=== PATIENT | female | born 1940 | race African-American/Black ===

== ENCOUNTER 2016-10-26 16:36 | Emergency (ER) | payer MEDICARE ==
[~2016-10-26 16:36] MED LIST: DONE10TA7 PO; DULO30CA2 PO; GABA-585 PO; LOVA40TA2 PO; MIRT15TA3 PO; MULT-208 PO; TRIA1CAP3 PO
== END 2016-10-26 17:39 | disposition left against medical advice (07) ==
LOC: ER 16:36
DX: T45.0X1A Poisoning by antiallergic and antiemetic drugs, accidental (unintentional), initial encounter (principal); Y92.89 Other specified places as the place of occurrence of the external cause; Z53.21 Procedure and treatment not carried out due to patient leaving prior to being seen by health care provider

== ENCOUNTER 2018-08-02 07:59 | Inpatient (IN) | payer MEDICARE, OTHER ==
[~2018-08-02] VITALS: Ht 165.1 cm; Wt 53.6 kg
[2018-08-02] VITALS (26 sets, daily range): BP systolic 82–127; BP diastolic 31–88
[2018-08-02 08:28] LABS: BASO % 1 % (0-3); EOS # 0.1 x10^3/uL (0.0-0.7); EOS % 2 % (0-3); HEMATOCRIT 29.4 % (36.0-47.0); HEMOGLOBIN 9.4 g/dL (12.0-15.5); LYMPH # 1.4 x10^3/uL (1.0-4.8); LYMPH % 26 % (24-48); MEAN CORPUSCULAR HEMOGLOBIN 23 pg (25-35); MEAN CORPUSCULAR HGB CONC 32 g/dL (31-37); MEAN CORPUSCULAR VOLUME 73 fL (79-100); MONO # 0.3 x10^3/uL (0.0-1.1); MONO % 5 % (0-9); NEUT # 3.5 x10^3uL (1.8-7.7); NEUT % 66 % (31-73); PLATELET COUNT 196 x10^3/uL (140-400); RED BLOOD COUNT 4.04 x10^6/uL (3.50-5.40); RED CELL DISTRIBUTION WIDTH 16.3 % (11.5-14.5); WHITE BLOOD COUNT 5.3 x10^3/uL (4.0-11.0)
--- NOTE | 2018-08-02 08:31 | PHYS DOC ---
Past Medical History Past Medical History: Other Additional Past Medical Histor: unknown Adult General Chief Complaint Chief Complaint: RECTAL BLEED HPI HPI Patient is a 77 year old female who presents with GI bleeding. The patient has a history of dementia and is nonverbal on arrival. The family arrived shortly after the patient. They state that she does have a prior history of diverticulitis. They noticed some GI bleeding that started last evening in the patient's brief. She was sent to the ER this morning because she seemed to be a little weaker compared to baseline when they assisted her with ambulation to the restroom. They also noticed ongoing blood from her rectum. There is no additional history available directly from the patient. History is gathered from the family. Review of Systems Review of Systems Constitutional: Reported to be at baseline health by the family Eyes: no changes reported HENT: no changes reported Respiratory: no cough Cardiovascular: No additional information not addressed in HPI GI: nausea or vomiting : no change in urinary patterns Integument: no new rashes Neurologic: no neuro changes reported Endocrine: no changes ROS gathered from the patient's family with whom she lives All other systems were reviewed and found to be within normal limits, except as documented in this note. Allergies Allergies Allergies Coded Allergies Type Severity Reaction Last Updated Verified No Known Drug Allergies 09/08/14 No Physical Exam Physical Exam Constitutional: Frail, elderly female in no acute distress, nonverbal HENT: Normocephalic, atraumatic, MM's moist Eyes: PERRLA, EOMI Neck: Normal range of motion, no tenderness, supple, no JVD Cardiovascular:Heart rate regular rhythm, no murmur Lungs & Thorax: Bilateral breath sounds clear to auscultation Abdomen: Bowel sounds normal, soft, mild subjective tenderness to palpation but no guarding or rebound, no distention Skin: Warm, dry Back: No skin breakdown Extremities: No edema Neurologic: Alert, nonverbal, moving all extremities, protecting airway, eyes open spontaneously, answers some questions, Current Patient Data Vital Signs Vital Signs Date Time Temp Pulse Resp B/P (MAP) Pulse Ox O2 Delivery O2 Flow Rate FiO2 08/02/18 08:49 60 13 104/64 (77) 97 Room Air 08/02/18 08:10 97.6 97.6 Lab Values Laboratory Tests Test 08/02/18 08:15 White Blood Count 5.3 x10^3/uL (4.0-11.0) Red Blood Count 4.04 x10^6/uL (3.50-5.40) Hemoglobin 9.4 g/dL (12.0-15.5) L Hematocrit 29.4 % (36.0-47.0) L Mean Corpuscular Volume 73 fL (79-100) L Mean Corpuscular Hemoglobin 23 pg (25-35) L Mean Corpuscular Hemoglobin Concent 32 g/dL (31-37) Red Cell Distribution Width 16.3 % (11.5-14.5) H Platelet Count 196 x10^3/uL (140-400) Neutrophils (%) (Auto) 66 % (31-73) Lymphocytes (%) (Auto) 26 % (24-48) Monocytes (%) (Auto) 5 % (0-9) Eosinophils (%) (Auto) 2 % (0-3) Basophils (%) (Auto) 1 % (0-3) Neutrophils # (Auto) 3.5 x10^3uL (1.8-7.7) Lymphocytes # (Auto) 1.4 x10^3/uL (1.0-4.8) Monocytes # (Auto) 0.3 x10^3/uL (0.0-1.1) Eosinophils # (Auto) 0.1 x10^3/uL (0.0-0.7) Basophils # (Auto) 0.0 x10^3/uL (0.0-0.2) Prothrombin Time 13.6 SEC (11.7-14.0) Prothrombin Time INR 1.1 (0.8-1.1) PTT 25 SEC (24-38) Sodium Level 146 mmol/L (136-145) H Potassium Level 3.9 mmol/L (3.5-5.1) Chloride Level 109 mmol/L (98-107) H Carbon Dioxide Level 28 mmol/L (21-32) Anion Gap 9 (6-14) Blood Urea Nitrogen 23 mg/dL (7-20) H Creatinine 1.0 mg/dL (0.6-1.0) Estimated GFR (Cockcroft-Gault) 65.2 Glucose Level 138 mg/dL (70-99) H Lactic Acid Level 1.2 mmol/L (0.4-2.0) Calcium Level 8.6 mg/dL (8.5-10.1) Total Bilirubin 0.4 mg/dL (0.2-1.0) Direct Bilirubin 0.1 mg/dL (0.0-0.2) Aspartate Amino Transferase (AST) 17 U/L (15-37) Alanine Aminotransferase (ALT) 17 U/L (14-59) Alkaline Phosphatase 46 U/L (46-116) Troponin I Quantitative < 0.017 ng/mL (0.000-0.055) Total Protein 5.9 g/dL (6.4-8.2) L Albumin 3.2 g/dL (3.4-5.0) L Lipase 40 U/L (73-393) L Laboratory Tests 08/02/18 08:15 Laboratory Tests 08/02/18 08:15 EKG EKG No STEMI Interpretation Time: 08:25 Radiology/Procedures Radiology/Procedures Findings: Evaluation of enteric structures may be limited by lack of oral contrast. Additionally, patient's left arm is on her upper abdomen, creating streak artifact. There is motion artifact. Liver, spleen, pancreas, gallbladder, and bilateral adrenal glands are unremarkable. Bilateral kidneys enhance symmetrically. Right kidney demonstrates subcentimeter low-attenuation lesion, not adequately characterized on this examination. No bowel obstruction is identified. Moderate to large amount of stool is present within the colon. Colonic diverticulosis is noted, but no convincing diverticulitis appreciated. The rectum is distended by formed stool; maximum diameter of the rectum is estimated at 9 cm. Degenerative changes are present in the spine. Impression: 1. Limitations of study as described above. 2. Rectum is significantly distended by formed stool. Consider fecal impaction and stercoral proctitis. 3. Moderate-large amount of colonic stool. 4. Colonic diverticulosis without convincing evidence of diverticulitis. Course & Med Decision Making Course & Med Decision Making Pertinent Labs and Imaging studies reviewed. (See chart for details) Patient was evaluated in the emergency department for some GI bleeding. Overall , her abdominal exam was benign but she did have some subjective tenderness. CT scan of the abdomen pelvis was completed and the patient had no acute diverticulitis. On arrival to the ER, she did have a large amount of dark maroon blood from her rectum which was in her brief. Her hemoglobin was over 9. Her vital signs remained stable during the ER course she had systolic blood pressures in the low 100s. IV fluids were started at a very low rate mostly to have on hand if needed for bolus. Patient's family remained at the bedside during her ER course. I spoke to Dr. Connell who is primarily admitting. I also notified GI service salesperson pianos and organs that the patient was being admitted. Dragon Disclaimer Dragon Disclaimer This electronic medical record was generated, in whole or in part, using a voice recognition dictation system. Departure Departure Disposition: 09 ADMITTED INPATIENT Condition: STABLE Referrals: GLORIA MURRELL (PCP) ADYLIN FABIAN DO Aug 02, 2018 08:31
[2018-08-02 08:37] LABS: CALCIUM 8.6 mg/dL (8.5-10.1); GFR 65.2; POTASSIUM 3.9 mmol/L (3.5-5.1); PROTHROMBIN TIME PATIENT 13.6 SEC (11.7-14.0)
[2018-08-02 08:43] LABS: ALBUMIN 3.2 g/dL (3.4-5.0); DIRECT BILIRUBIN 0.1 mg/dL (0.0-0.2); TOTAL BILIRUBIN 0.4 mg/dL (0.2-1.0); TOTAL PROTEIN 5.9 g/dL (6.4-8.2)
--- NOTE | 2018-08-02 08:43 | EKG ---
[facility] [address] [place] [address] Test Date: 2018-08-02 Test Time: 08:21:39 Pat Name: BEAR SANCHEZ Department: Room: Gender: F Right Of Way Manager: : 1940 Requested By: DAYLIN FABIAN Order Number: [id number] Reading MD: Adebayo Brown MD Measurements Intervals [place] Rate: 59 P: 39 AK: 134 QRS: -84 QRSD: 112 T: -24 QT: 454 QTc: 454 Interpretive Statements SINUS RHYTHM ABNORMAL LEFT AXIS DEVIATION NON-SPECIFIC ST/T CHANGES Electronically Signed On 08-02-2018 11:16:57 ETL ANALYST by Adebayo Brown MD
[2018-08-02] MEDS ORDERED: DEXTROSE 50% 25 GM / 50ML DISP.SYRIN. IV ONE (09:00)
[2018-08-02] MEDS ORDERED: INSULIN REGULAR 100 UNIT/ML 3ML VIAL. IV ONE (09:00)
[2018-08-02] MEDS ORDERED: CALCIUM GLUCONATE 1,000 MG/10 ML VIAL. IVP ONE (09:00)
[2018-08-02] MEDS ORDERED: CONTRAST GIVEN. MC PRN (09:15)
[2018-08-02] MEDS ORDERED: IOHEXOL 300 MG/ML 100ML VIAL. IV ONE (09:30)
--- NOTE | 2018-08-02 09:38 | RAD ---
CT Abdomen and Pelvis With Intravenous Contrast: History: Abdominal pain, GI bleeding, diverticulitis. Comparison: None. Technique: After administration of intravenous contrast, 75 mL Omnipaque-300, CT of the abdomen and pelvis was performed. Exposure: One or more of the following individualized dose reduction techniques were utilized for this examination: 1. Automated exposure control 2. Adjustment of the mA and/or kV according to patient size 3. Use of iterative reconstruction technique Findings: Evaluation of enteric structures may be limited by lack of oral contrast. Additionally, patient's left arm is on her upper abdomen, creating streak artifact. There is motion artifact. Liver, spleen, pancreas, gallbladder, and bilateral adrenal glands are unremarkable. Bilateral kidneys enhance symmetrically. Right kidney demonstrates subcentimeter low-attenuation lesion, not adequately characterized on this examination. No bowel obstruction is identified. Moderate to large amount of stool is present within the colon. Colonic diverticulosis is noted, but no convincing diverticulitis appreciated. The rectum is distended by formed stool; maximum diameter of the rectum is estimated at 9 cm. Degenerative changes are present in the spine. Impression: 1. Limitations of study as described above. 2. Rectum is significantly distended by formed stool. Consider fecal impaction and stercoral proctitis. 3. Moderate-large amount of colonic stool. 4. Colonic diverticulosis without convincing evidence of diverticulitis. Electronically signed by: Javier Holliday MD (08/02/2018 9:34 AM) [place] [id number]
[2018-08-02] MEDS ORDERED: ONDANSETRON PF 4 MG/2 ML VIAL. IV PRN (10:00)
[2018-08-02] MEDS ORDERED: IV NORMAL SALINE 1000ML BAG 1,000 ML IV SCH (10:00)
--- NOTE | 2018-08-02 10:45 | PDOC2 ---
GI CONSULT Reason For Consult: GI bleeding HPI: HPI: 77 y/o female w/ dementia admitted through ER w/ rectal bleeding, called by ER physician (Dr. Forte). History from daughter [place] - she cares for pt at home w/ her sister. Lifelong h/o constipation, no regular treatment, unclear timing of last "good" stool. Recently she c/o abd pain so they tried Mag Citrate. Might have had a little red blood in brief on Monday, no bleeding Monday. This morning sat up in bed, fell to the side and slipped down to the floor (with daughter present to help) - they think she might have fainted. Then had significant blood in brief w/ mushy brown stool. ER reports dark red blood in brief w/ clots - saturated when she arrived, changed twice since, bleeding seems to be slowing now. H/o GERD (untreated) but recently her "breath has smelled like poop." Some decreased appetite and early satiety, though ate "a lot" yesterday. No issues with swallowing. No n/v. No melena or weight loss. Similar episode @ about 7 years ago w/ bleeding - "diverticulitis," treated w/ antibiotics. Previous EGD at some point, no h/o ulcers. Past colonoscopy @ , timing unclear, no significant findings recalled. No GB, liver, or pancreas history. On ASA. Vitals stable. Hgb 9.4, MCV 73, BUN 23. CT w/ possible fecal impaction or stercoral proctitis, moderate-large colonic stool, and diverticulosis. PMH: PMH: per chart - ?HTN, arthritis, diverticulosis, Alzheimer dementia, depression, neuropathy, bilateral knee replacement, back surgery, hysterectomy ROS: She denies pain. Other obtained per daughter - refer to HPI. Vitals: Vitals: Vital Signs Date Time Temp Pulse Resp B/P (MAP) Pulse Ox O2 Delivery O2 Flow Rate FiO2 08/02/18 09:40 56 14 151/60 (90) 99 Room Air 08/02/18 08:10 97.6 97.6 Labs: Labs: Laboratory Tests Test 08/02/18 08:15 White Blood Count 5.3 x10^3/uL (4.0-11.0) Red Blood Count 4.04 x10^6/uL (3.50-5.40) Hemoglobin 9.4 g/dL (12.0-15.5) Hematocrit 29.4 % (36.0-47.0) Mean Corpuscular Volume 73 fL (79-100) Mean Corpuscular Hemoglobin 23 pg (25-35) Mean Corpuscular Hemoglobin Concent 32 g/dL (31-37) Red Cell Distribution Width 16.3 % (11.5-14.5) Platelet Count 196 x10^3/uL (140-400) Neutrophils (%) (Auto) 66 % (31-73) Lymphocytes (%) (Auto) 26 % (24-48) Monocytes (%) (Auto) 5 % (0-9) Eosinophils (%) (Auto) 2 % (0-3) Basophils (%) (Auto) 1 % (0-3) Neutrophils # (Auto) 3.5 x10^3uL (1.8-7.7) Lymphocytes # (Auto) 1.4 x10^3/uL (1.0-4.8) Monocytes # (Auto) 0.3 x10^3/uL (0.0-1.1) Eosinophils # (Auto) 0.1 x10^3/uL (0.0-0.7) Basophils # (Auto) 0.0 x10^3/uL (0.0-0.2) Prothrombin Time 13.6 SEC (11.7-14.0) Prothromb Time International Ratio 1.1 (0.8-1.1) Activated Partial Thromboplast Time 25 SEC (24-38) Sodium Level 146 mmol/L (136-145) Potassium Level 3.9 mmol/L (3.5-5.1) Chloride Level 109 mmol/L (98-107) Carbon Dioxide Level 28 mmol/L (21-32) Anion Gap 9 (6-14) Blood Urea Nitrogen 23 mg/dL (7-20) Creatinine 1.0 mg/dL (0.6-1.0) Estimated GFR (Cockcroft-Gault) 65.2 Glucose Level 138 mg/dL (70-99) Lactic Acid Level 1.2 mmol/L (0.4-2.0) Calcium Level 8.6 mg/dL (8.5-10.1) Total Bilirubin 0.4 mg/dL (0.2-1.0) Direct Bilirubin 0.1 mg/dL (0.0-0.2) Aspartate Amino Transf (AST/SGOT) 17 U/L (15-37) Alanine Aminotransferase (ALT/SGPT) 17 U/L (14-59) Alkaline Phosphatase 46 U/L (46-116) Troponin I Quantitative < 0.017 ng/mL (0.000-0.055) Total Protein 5.9 g/dL (6.4-8.2) Albumin 3.2 g/dL (3.4-5.0) Lipase 40 U/L (73-393) Allergies: Coded Allergies: No Known Drug Allergies (Unverified , 09/08/14) Medications: Current Medications Medications (Trade) Dose Ordered Sig/Jaden Route PRN Reason Start Time Stop Time Status Last Admin Dose Admin Iohexol (Omnipaque 300 Mg/ml) 75 ml 1X ONCE IV 08/02/18 09:30 08/02/18 09:31 DC 08/02/18 09:08 Sodium Chloride 1,000 ml @ 45 mls/hr [id number] IV 08/02/18 10:00 08/03/18 09:59 08/02/18 10:36 Imaging: Imaging: CT A/P Evaluation of enteric structures may be limited by lack of oral contrast. Additionally, patient's left arm is on her upper abdomen, creating streak artifact. There is motion artifact. Liver, spleen, pancreas, gallbladder, and bilateral adrenal glands are unremarkable. Bilateral kidneys enhance symmetrically. Right kidney demonstrates subcentimeter low-attenuation lesion, not adequately characterized on this examination. No bowel obstruction is identified. Moderate to large amount of stool is present within the colon. Colonic diverticulosis is noted, but no convincing diverticulitis appreciated. The rectum is distended by formed stool; maximum diameter of the rectum is estimated at 9 cm. Degenerative changes are present in the spine. Impression: 1. Limitations of study as described above. 2. Rectum is significantly distended by formed stool. Consider fecal impaction and stercoral proctitis. 3. Moderate-large amount of colonic stool. 4. Colonic diverticulosis without convincing evidence of diverticulitis. PE: GEN: NAD HEENT: Atraumatic, PERRL LUNGS: CTAB anteriorly HEART: RRR ABD: NABS, S/ND/NT EXTREMITY: No edema SKIN: No rashes, no jaundice NEURO/PSYCH: confused A/P: A/P: Hematochezia, abd pain, ?syncope Microcytic anemia -on ASA Abnormal CT - distended rectum w/ possible fecal impaction or stercoral proctitis, moderate-large colonic stool H/o GERD and constipation -past 'scopes @ [facility] -no routine treatment Diverticulosis, ?h/o diverticulitis vs past diverticular bleed Dementia -- Reviewed w/ Propeck - bleeding scan and Miralax. Will also add PPI. Hemogram this afternoon. MEL ORDONEZ Aug 02, 2018 10:45
[2018-08-02] MEDS ORDERED: POLYETHYLENE GLYCOL 3350 238 GM POWDER PO ONE ×2 (12:30→19:00)
[2018-08-02] MEDS ORDERED: POLYETHYLENE GLYCOL 3350 17 GM PACKET. PO ONE (12:30)
[2018-08-02] MEDS ORDERED: IV NORMAL SALINE 250ML 250 ML IV ONE (13:00)
[2018-08-02] MEDS ORDERED: HEPARIN for NUC MED 500 UNIT/5 ML DISP.SYRIN. IV ONE (13:05)
[2018-08-02] MEDS ORDERED: ASPI-612 PO (13:06)
[2018-08-02] MEDS ORDERED: MIRT15TA3 PO (13:06)
[2018-08-02] MEDS ORDERED: SENN1TAB21 PO (13:06)
[2018-08-02] MEDS ORDERED: MEMA10TA PO (13:10)
[2018-08-02 13:15] LABS: HEMATOCRIT 24.6 % (36.0-47.0); HEMOGLOBIN 7.8 g/dL (12.0-15.5); RED BLOOD COUNT 3.37 x10^6/uL (3.50-5.40); RED CELL DISTRIBUTION WIDTH 16.6 % (11.5-14.5); WHITE BLOOD COUNT 5.8 x10^3/uL (4.0-11.0)
[2018-08-02] MEDS ORDERED: HEPARIN PF 500 UNIT/5 ML DISP.SYRIN. IV ONE (13:30)
--- NOTE | 2018-08-02 14:46 | RAD ---
History: GI bleed Technique: After intravenous administration of 32 mCi technetium 99m UltraTag labeled red blood cells, imaging was performed of the abdomen in the anterior projection for one hour. Findings: The images demonstrate appropriate labeling of the blood pool. No gastrointestinal hemorrhage is identified. There is progressive accumulation of a mild amount of activity within the lower pelvis, favored represent free pertechnetate within the urinary bladder. Impression: No evidence of acute GI bleeding. Electronically signed by: Javier Holliday MD (08/02/2018 2:43 PM) [place] [id number]
[2018-08-02] MEDS: IV NORMAL SALINE 1000ML BAG 1,000 ML IV SCH (14:54)
[2018-08-02] MEDS: PANTOPRAZOLE IV PUSH 40 MG VIAL. IVP SCH (14:54)
--- NOTE | 2018-08-02 18:45 | PDOC ---
Provider Note Provider Note Pt seen in ICU. critical care 38 mts spent in coordinating care. spoke with family members at bedside MARIA DOLORES HILARIO MD Aug 02, 2018 18:45
--- NOTE | 2018-08-02 20:02 | HP ---
ADMIT DATE: 08/02/2018 LOCATION: ICU 103. REASON FOR ADMISSION TO THE HOSPITAL: Rectal bleed. HISTORY OF PRESENT ILLNESS: The patient is a 77-year-old black female patient of Dr. Green. The patient goes to adult daycare and she has history of dementia and she lives with her daughters. She has history of constipation and recently she was complaining of abdominal pain. She got some mag citrate and she also had tried to go to the bathroom this morning. There was some blood in the Brief and she also had little bit of syncopal episode while she was trying to go to the toilet. The patient was brought to the hospital, had blood in the stool. The patient was admitted to medical floor. She developed hypotension as well as another episode of syncopal episode, was transferred to ICU. GI was consulted and she is being given a blood transfusion. PAST MEDICAL HISTORY: Dementia, diverticulosis, depression. PAST SURGICAL HISTORY: Bilateral knee replacements, back surgery and hysterectomy. ALLERGIES: No known drug allergies. MEDICATIONS AT HOME: Aspirin 81 mg daily, Cymbalta 30 mg daily, gabapentin 100 mg at bedtime, senna 1 daily, Namenda 10 mg twice a day, mirtazapine 50 mg daily. FAMILY HISTORY: Unremarkable. SOCIAL HISTORY: Lives at home with her daughter. She said she ambulates by herself without any walker or a cane. REVIEW OF SYSTEMS: The patient smiles, does not say much at this point, daughter at bedside. PHYSICAL EXAMINATION: GENERAL: An elderly female, looks older than her stated age of 77, lying in bed, not in any distress. VITAL SIGNS: Shows a temperature 98, pulse 66, respirations 16, blood pressure 90/60, 95% on room air. HEENT: Head is atraumatic. Pupils are equal. Oral cavity: No congestion. NECK: Supple. Thyroid not enlarged. JVD not elevated. CHEST: Symmetrical. CARDIOVASCULAR: S1, S2. LUNGS: Clear to auscultation. No wheezing. ABDOMEN: Soft, no masses palpable. EXTERNAL GENITALIA: Carrion was placed in the Emergency Room. RECTAL: Deferred. EXTREMITIES: Scars of bilateral knee replacements and no edema. Moving upper extremities. Lower extremities, she is spontaneously moving by herself. LABORATORY DATA: Shows a white count of 5, hemoglobin 9, platelets 196. INR 1.1. Electrolytes: Sodium 146, potassium 3.9, chloride 109, bicarbonate 28, BUN 26, creatinine 1.0, glucose 138. Lactic acid 1.2. LFTs were normal. Had a CT of abdomen and pelvis, which shows rectum is distended with stool, possible proctitis, colon diverticulosis. The patient had a GI bleeding scan, no evidence of active GI bleed. FINAL IMPRESSION: 1. Lower gastrointestinal bleed. 2. Dementia. 3. Anemia. 4. Neuropathy. 5. General debility. 6. History of previous surgeries including knee replacements. 7. The patient is on aspirin. 8. Dementia Alzheimer. PLAN: At this time was to hold aspirin. Medications n.p.o., IV fluids. The patient also had episode of hypotension, given fluid challenge 1 liter, was moved to ICU and GI is consulted. Monitor hemoglobin q. 6 hours. Transfuse 2 units and further recommendations to follow. I spoke with family members. Hold off on anticoagulation. SCDs for DVT prevention. Also, IV Protonix and drip. MARIA DOLORES HILARIO MD DR: DINO/michelle JOB#: [id number] / [id number] ARIELA
[2018-08-02] MEDS: ZOLPIDEM 5 MG TABLET. PO PRN (21:36)
[2018-08-03] VITALS (28 sets, daily range): BP systolic 83–140; BP diastolic 45–80
[2018-08-03 01:23] LABS: HEMATOCRIT 29.6 % (36.0-47.0); HEMOGLOBIN 10.2 g/dL (12.0-15.5); RED BLOOD COUNT 3.87 x10^6/uL (3.50-5.40); RED CELL DISTRIBUTION WIDTH 19.7 % (11.5-14.5); WHITE BLOOD COUNT 9.3 x10^3/uL (4.0-11.0)
[2018-08-03] MEDS: IV NORMAL SALINE 1000ML BAG 1,000 ML IV SCH ×2 (03:01→06:00)
[2018-08-03 05:22] LABS: BASO % 0 % (0-3); EOS % 0 % (0-3); HEMATOCRIT 28.9 % (36.0-47.0); HEMOGLOBIN 9.9 g/dL (12.0-15.5); LYMPH % 11 % (24-48); MEAN CORPUSCULAR HEMOGLOBIN 27 pg (25-35); MEAN CORPUSCULAR HGB CONC 34 g/dL (31-37); MEAN CORPUSCULAR VOLUME 78 fL (79-100); MONO # 0.4 x10^3/uL (0.0-1.1); MONO % 5 % (0-9); NEUT # 7.5 x10^3uL (1.8-7.7); NEUT % 84 % (31-73); PLATELET COUNT 144 x10^3/uL (140-400); RED BLOOD COUNT 3.72 x10^6/uL (3.50-5.40); RED CELL DISTRIBUTION WIDTH 19.1 % (11.5-14.5)
[2018-08-03 05:34] LABS: CALCIUM 7.9 mg/dL (8.5-10.1); CREATININE 0.9 mg/dL (0.6-1.0); GFR 73.7; POTASSIUM 3.5 mmol/L (3.5-5.1)
[2018-08-03] MEDS ORDERED: SODIUM PHOSPHATES 19/7GM 133 ML ENEMA. PR ONE ×2 (08:00)
[2018-08-03] MEDS: PANTOPRAZOLE IV PUSH 40 MG VIAL. IVP SCH (08:29)
--- NOTE | 2018-08-03 09:34 | PDOC ---
PROGRESS NOTES Subjective Subjective received 2 u prbc lat night Objective Objective Vital Signs Date Time Temp Pulse Resp B/P (MAP) Pulse Ox O2 Delivery O2 Flow Rate FiO2 08/03/18 06:00 61 12 126/73 (90) 100 Room Air 08/03/18 04:00 99.2 99.2 Intake and Output 08/03/18 07:00 Intake Total 3147 ml Output Total 630 ml Balance 2517 ml Intake IV Total 2597 ml Blood Product IV Normal Saline Flush 550 ml Output Urine Total 625 ml Stool Total 5 ml Physical Exam Abdomen: Normal bowel sounds, Soft Heart: Regular rate, Normal S1, Normal S2 Extremities: No clubbing, No cyanosis General: No acute distress HEENT: PERRLA Lungs: Clear to auscultation Neck: Supple Neuro: Other (confusion and agiataion) Skin: No rashes, No breakdown Diagnosis Problem List Problems Medical Problems: (1) GI bleed Status: Acute Assessment Assessment Problems Medical Problems: (1) GI bleed Status: Acute FINAL IMPRESSION: 1. Acute Lower gastrointestinal bleed. 2. Dementia. 3. Anemia due to GI bleed. 4. Neuropathy. 5. General debility. 6. History of previous surgeries including knee replacements. 7. The patient is on aspirin. 8. Dementia with agitation and confusion, encephalopathy PLAN: 2 u prbc last night ,hb 10 today colonoscopy today. surgical consult as back up. CTA to r/o active bleed. monitor Hb q 6 hrs iv hydration. keep in ICU spoke with family iv protonix At this time was to hold aspirin. Medications n.p.o., IV fluids. The patient also had episode of hypotension, given fluid challenge 1 liter, was moved to ICU and GI is consulted. Monitor hemoglobin q. 6 hours. Transfuse 2 units and further recommendations to follow. I spoke with family members. Hold off on anticoagulation. SCDs for DVT prevention. Also, IV Protonix and drip. Plan Plan of Care Problems Medical Problems: (1) GI bleed Status: Acute Comment Review of Relevant I have reviewed the following items bindu (where applicable) has been applied. Labs Laboratory Tests Test 08/02/18 12:55 08/03/18 01:00 08/03/18 04:00 White Blood Count 5.8 x10^3/uL (4.0-11.0) 9.3 x10^3/uL (4.0-11.0) 9.0 x10^3/uL (4.0-11.0) Red Blood Count 3.37 x10^6/uL (3.50-5.40) 3.87 x10^6/uL (3.50-5.40) 3.72 x10^6/uL (3.50-5.40) Hemoglobin 7.8 g/dL (12.0-15.5) 10.2 g/dL (12.0-15.5) 9.9 g/dL (12.0-15.5) Hematocrit 24.6 % (36.0-47.0) 29.6 % (36.0-47.0) 28.9 % (36.0-47.0) Mean Corpuscular Volume 73 fL (79-100) 77 fL (79-100) 78 fL (79-100) Mean Corpuscular Hemoglobin 23 pg (25-35) 26 pg (25-35) 27 pg (25-35) Mean Corpuscular Hemoglobin Concent 32 g/dL (31-37) 34 g/dL (31-37) 34 g/dL (31-37) Red Cell Distribution Width 16.6 % (11.5-14.5) 19.7 % (11.5-14.5) 19.1 % (11.5-14.5) Platelet Count 174 x10^3/uL (140-400) 155 x10^3/uL (140-400) 144 x10^3/uL (140-400) Neutrophils (%) (Auto) 84 % (31-73) Lymphocytes (%) (Auto) 11 % (24-48) Monocytes (%) (Auto) 5 % (0-9) Eosinophils (%) (Auto) 0 % (0-3) Basophils (%) (Auto) 0 % (0-3) Neutrophils # (Auto) 7.5 x10^3uL (1.8-7.7) Lymphocytes # (Auto) 1.0 x10^3/uL (1.0-4.8) Monocytes # (Auto) 0.4 x10^3/uL (0.0-1.1) Eosinophils # (Auto) 0.0 x10^3/uL (0.0-0.7) Basophils # (Auto) 0.0 x10^3/uL (0.0-0.2) Sodium Level 147 mmol/L (136-145) Potassium Level 3.5 mmol/L (3.5-5.1) Chloride Level 112 mmol/L (98-107) Carbon Dioxide Level 24 mmol/L (21-32) Anion Gap 11 (6-14) Blood Urea Nitrogen 25 mg/dL (7-20) Creatinine 0.9 mg/dL (0.6-1.0) Estimated GFR (Cockcroft-Gault) 73.7 Glucose Level 134 mg/dL (70-99) Calcium Level 7.9 mg/dL (8.5-10.1) Thyroid Stimulating Hormone (TSH) 0.648 uIU/mL (0.358-3.74) Medications Current Medications Haloperidol Lactate (Haldol Inj) 1 mg PRN Q6HRS PRN IVP AGITATION; Start 08/02 at 15:15 Heparin Sodium (Porcine) (HEPARIN for NUC MED) 500 unit STK-MED ONCE IV ; Start 08/02/18 at 13:05; Stop 08/02/18 at 13:17; Status DC Heparin Sodium (Porcine) (Hep Lock Adult) 100 unit 1X ONCE IV ; Start at 13:30; Stop 08/02/18 at 18:47; Status DC Ondansetron HCl (Zofran) 4 mg PRN Q8HRS PRN IV NAUSEA/VOMITING; Start at 10:00; Stop 08/03/18 at 09:59 Pantoprazole Sodium (PROTONIX VIAL for IV PUSH) 40 mg DAILYAC IVP Last administered on 08/03/18at 08:29; Start 08/02/18 at 12:30 Polyethylene Glycol (miraLAX PACKET) 17 gm 1X ONCE PO ; Start 08/02/18 at 12: 30; Stop 08/02/18 at 12:47; Status DC Polyethylene Glycol (miraLAX Powder BULK BOTTLE) 238 gm 1X ONCE PO ; Start at 12:30; Stop 08/02/18 at 12:31; Status Cancel Polyethylene Glycol (miraLAX Powder BULK BOTTLE) 238 gm 1X ONCE PO Last administered on 08/02/18at 19:18; Start 08/02/18 at 19:00; Stop 08/02/18 at 19 :01; Status DC Sodium Monofluorophosphate (Fleet Adult) 133 ml 1X ONCE MT ; Start 08/03/18 at 08:00; Stop 08/03/18 at 08:01; Status DC Sodium Monofluorophosphate (Fleet Adult) 133 ml 1X ONCE MT ; Start 08/03/18 at 08:00; Stop 08/03/18 at 08:01; Status DC Sodium Chloride 250 ml @ 500 mls/hr 1X ONCE IV Last administered on at 13:00; Start 08/02/18 at 13:00; Stop 08/02/18 at 13:29; Status DC Sodium Chloride 1,000 ml @ 45 mls/hr [id number] IV Last administered on at 10:36; Start 08/02/18 at 10:00; Stop 08/02/18 at 12:37; Status DC Sodium Chloride 1,000 ml @ 125 mls/hr Q8H IV Last administered on 08/03/18at 03:01; Start 08/02/18 at 14:00 Zolpidem Tartrate (Ambien) 5 mg PRN QHS PRN PO INSOMNIA Last administered on at 21:36; Start 08/02/18 at 21:30 Vitals/I & O Vital Sign - Last 24 Hours 08/02/18 08/02/18 08/02/18 08/02/18 09:40 10:32 10:40 12:20 Pulse 56 100 84 Resp 14 14 17 B/P (MAP) 151/60 (90) 115/64 (81) 105/63 (77) Pulse Ox 99 97 100 O2 Delivery Room Air Room Air Room Air Room Air 08/02/18 08/02/18 08/02/18 08/02/18 12:31 12:32 12:45 13:15 Temp 98.6 98.0 98.6 98.0 Pulse 76 58 68 Resp 16 16 B/P (MAP) 92/60 (71) 90/31 (50) 98/72 (81) 99/66 (77) Pulse Ox 97 96 100 99 O2 Delivery Room Air Room Air Room Air Room Air 08/02/18 08/02/18 08/02/18 08/02/18 13:45 14:00 14:15 14:45 Temp 98.5 98.5 Pulse 68 72 92 72 Resp 16 B/P (MAP) 99/54 (69) 99/54 (69) 110/69 (83) 99/67 (78) Pulse Ox 98 96 96 100 O2 Delivery Room Air Room Air Room Air Room Air 08/02/18 08/02/18 08/02/18 08/02/18 14:57 15:00 15:15 15:45 Pulse 72 70 80 Resp 17 B/P (MAP) 99/67 (78) 88/64 (72) 82/55 (64) Pulse Ox 99 95 97 O2 Delivery Room Air Room Air Room Air Room Air 08/02/18 08/02/18 08/02/18 08/02/18 15:53 16:00 16:00 16:00 Temp 98.5 98.9 98.5 98.9 Pulse 68 66 66 Resp 16 16 B/P (MAP) 82/55 94/59 (71) 82/55 (64) Pulse Ox 95 99 O2 Delivery Room Air Room Air Room Air 08/02/18 08/02/18 08/02/18 08/02/18 16:08 16:15 16:30 17:08 Temp 98.9 98.2 98.9 98.2 Pulse 66 70 76 64 Resp 16 16 B/P (MAP) 94/59 104/67 (79) 99/62 (74) 97/55 Pulse Ox 98 96 O2 Delivery Room Air Room Air 08/02/18 08/02/18 08/02/18 08/02/18 18:00 18:00 18:46 19:00 Temp 98.4 98.4 98.4 98.4 Pulse 85 66 85 69 Resp 18 16 16 16 B/P (MAP) 108/61 108/61 (77) 108/61 107/63 (78) Pulse Ox 98 99 O2 Delivery Room Air Room Air 08/02/18 08/02/18 08/02/18 08/02/18 19:01 20:00 20:00 20:29 Temp 99.4 99.5 99.5 99.4 99.5 99.5 Pulse 69 80 71 Resp 16 16 16 B/P (MAP) 107/63 122/82 (95) 118/80 Pulse Ox 99 O2 Delivery Room Air Room Air 08/02/18 08/02/18 08/02/1808/02/18 21:00 22:00 23:00 23:59 Pulse 81 78 73 Resp 13 12 16 B/P (MAP) 113/73 (86) 127/88 (101) 111/75 (87) Pulse Ox 99 98 99 O2 Delivery Room Air Room Air Room Air Room Air 08/03/18 08/03/18 08/03/18 08/03/18 00:00 01:00 02:00 03:00 Temp 99.8 99.8 Pulse 91 81 66 78 Resp 16 12 14 14 B/P (MAP) 116/54 (74) 127/73 (91) 125/74 (91) 121/76 (91) Pulse Ox 96 99 99 100 O2 Delivery Room Air Room Air Room Air Room Air 08/03/18 08/03/18 08/03/18 08/03/18 04:00 04:00 05:00 06:00 Temp 99.2 99.2 Pulse 72 64 61 Resp 18 20 12 B/P (MAP) 125/80 (95) 117/68 (84) 126/73 (90) Pulse Ox 100 100 100 O2 Delivery Room Air Room Air Room Air Room Air Intake and Output 08/02/18 08/02/18 08/03/18 15:00 23:00 07:00 Intake Total 1900 ml 1247 ml Output Total 120 ml 245 ml 265 ml Balance -120 ml 1655 ml 982 ml MARIA DOLORES HILARIO MD Aug 03, 2018 09:34
[2018-08-03] MEDS ORDERED: LIDOCAINE 1% PF 2 ML VIAL. ONE (10:56)
[2018-08-03] MEDS ORDERED: PROPOFOL 20 ML IV ONE (10:56)
[2018-08-03] MEDS ORDERED: ePHEDrine PF IN SALINE 50 MG/5 ML DISP.SYRIN IV ONE (11:37)
--- NOTE | 2018-08-03 12:01 | PDOC4 ---
Operative Note Operative Note Colonoscopy Meds propofol per anesthesia Pre-op dx rectal bleed/hx diverticulosis Post-op dx internal hemorrhoids diverticulosis sigmoid colon Plan CTA with ongoing bleeding transfusional support to maintain Hg >8 surgery consult SERA AZAR MD Aug 03, 2018 12:01
[2018-08-03] MEDS ORDERED: IOHEXOL 300 MG/ML 100ML VIAL. ONE ×2 (12:28→14:20)
[2018-08-03] MEDS ORDERED: CONTRAST GIVEN. MC PRN (12:30)
[2018-08-03 12:31] LABS: HEMATOCRIT 26.8 % (36.0-47.0); HEMOGLOBIN 8.9 g/dL (12.0-15.5); RED BLOOD COUNT 3.4 x10^6/uL (3.50-5.40); RED CELL DISTRIBUTION WIDTH 19.2 % (11.5-14.5); WHITE BLOOD COUNT 7.1 x10^3/uL (4.0-11.0)
[2018-08-03] MEDS: POTASSIUM CL 20MEQ D5-0.9%NACL 1,000 ML IV SCH ×2 (12:55→17:40)
[2018-08-03] MEDS ORDERED: IOHEXOL 300 MG/ML 100ML VIAL. IV ONE (13:00)
--- NOTE | 2018-08-03 14:08 | RAD ---
PQRS Compliance statement: One or more of the following individualized dose reduction techniques were utilized for this examination: 1. Automated exposure control. 2. Adjustment of the mA and/or kV according to patient size. 3. Use of iterative reconstruction technique. Indication:CTA A/P GI BLEED PROTOCOL, PASSING LARGE CLOTS TECHNIQUE: CT angiogram abdomen and pelvis with IV contrast with multiplanar reformats. 3-D volume rendered postprocessing was performed. COMPARISON: 08/02/2018 FINDINGS: Heart is normal in size. Trace left effusion. Coronary artery calcifications. No pericardial effusion. Clear lung bases. Liver, spleen, gallbladder, pancreas, adrenals are within normal limits. No hydronephrosis or nephrolithiasis. Simple cyst is seen in the right kidney measuring 1 cm. No free pelvic fluid or ascites. No enlarged retroperitoneal or pelvic adenopathy. There is circumferential wall thickening of the rectum. No evidence of obstruction. Circumferential area of high attenuation is seen in the proximal descending colon on arterial phase images which becomes more prominent on delayed phase images. Diverticulosis is seen in this segment of the bowel. Mild sigmoid diverticulosis. No pneumoperitoneum or pneumatosis intestinalis. Urinary bladder is decompressed with fully catheter. Status post hysterectomy. Presacral soft tissue edema is seen. Mild diffuse atherosclerotic calcifications are seen of the abdominal aorta and bilateral iliac arteries. Diffuse mixed lucent and patches sclerotic appearance of the bones seen. This can be secondary to chronic renal disease or diffuse osteopenia. The celiac axis, splenic artery, left gastric artery, common hepatic artery, SMA, bilateral renal arteries, LINDA, bilateral common iliac arteries, bilateral external/internal iliac arteries are patent. IMPRESSION: 1. Acute bleed in the proximal descending colon. 2. Nodular wall thickening of the rectum can be seen in stercoral colitis as there was fecal impaction seen on previous exam. Findings were discussed with [facility] patient's nurse on 08/03/2018 at 2:05 PM. Electronically signed by: Charlie Sena DO (08/03/2018 2:06 PM) [id number]
[2018-08-03] MEDS ORDERED: ONDANSETRON PF 4 MG/2 ML VIAL. ONE (14:10)
[2018-08-03] MEDS ORDERED: SUCCINYLCHOLINE 200 MG/10 ML VIAL. ONE (14:10)
[2018-08-03] MEDS ORDERED: KETAMINE HCL IN STERILE WATER 50 MG/5 ML SYRINGE ONE (14:10)
[2018-08-03] MEDS ORDERED: FAMOTIDINE 20 MG/2 ML VIAL ONE (14:10)
[2018-08-03] MEDS ORDERED: ETOMIDATE 20 MG/10 ML VIAL. IV ONE (14:11)
[2018-08-03] MEDS ORDERED: fentaNYL PF VIAL 100 MCG/2 ML VIAL ONE (14:11)
[2018-08-03] MEDS ORDERED: IOHEXOL 240 MG/ML 50ML VIAL. ONE (14:20)
[2018-08-03] MEDS ORDERED: LIDOCAINE WITH 8.4% SOD BICARB 3 ML DISP.SYRIN. ONE (14:20)
[2018-08-03] MEDS ORDERED: IOHEXOL 300 MG/ML 100ML VIAL. IART ONE (16:00)
[2018-08-03] MEDS ORDERED: LIDOCAINE WITH 8.4% SOD BICARB 3 ML DISP.SYRIN. IJ ONE (16:15)
--- NOTE | 2018-08-03 16:32 | PDOC ---
Provider Note Provider Note IR NOTE S/P visceral angiography for GI bleed. No active bleeding was identified. 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 Reduced but persistent forward flow. By CTA, SMA was widely patent. Proximal LINDA occlusion is almost always clinically insignificant, and the artery is commonly coiled/covered during endovascular interventions. Unfortunately, this may limit the ability to re select the LINDA and attempt a repeat intervention. If bleeding fails to resolve repeat endoscopic or surgical intervention may be needed. AYANA RAMIREZ MD Aug 03, 2018 16:32
--- NOTE | 2018-08-03 16:54 | RAD ---
08/03/2018 Exam: Visceral angiography Indication: Acute GI bleed, with active bleeding on in the mid descending colon by CTA. Area of active bleeding on CT supplied by inferior mesenteric artery Discussion: Patient is 77-year-old female with active lower GI bleeding and anemia. Patient has had intermittent hypotension, likely intermittent bleeding. Patient also suffers from dementia. The risks and benefits of the procedure were therefore discussed the patient's family. Informed consent was obtained. A timeout procedure was performed. Anesthesiology was present to provide sedation. The right common femoral artery was accessed using ultrasound guidance. Ultrasound demonstrated the right common femoral artery was patent. Micropuncture technique was used, as the artery was punctured under direct ultrasound guidance with the needle tip being visualized in the central lumen of the artery. A 5 [place] vascular sheath was placed. The inferior mesenteric artery was selected. Multiple angiograms were obtained. The portion of the colon found to be actively bleeding on CTA was well visualized. No active bleeding however was identified. This is despite multiple repeat angiograms. Given findings on prior CT selective angiography of the more distal branches was attempted. However in attempting to negotiate a microwire into the more distal branches there was a proximal inferior mesenteric artery dissection. Dissection short segment does not extend to the first branch off the LINDA. The dissection was eventually traversed with a microwire and catheter. Some persistent flow through the LINDA is seen. Attempts to perform angioplasty to improve lumen of the proximal LINDA were unsuccessful. Given the widely patent appearance of the SMA on prior CT angiography LINDA dissection is likely of little clinical significance as this vessel is routinely covered and/or coiled during endovascular interventions. However dissection in the ostium of the LINDA with likely limit subsequent attempts at endovascular intervention for this bleed. Catheters were removed. Hemostasis in the right groin was achieved with a minx closure device. Manual pressure was held. Sterile dressings were applied. Fluoroscopy time 21.8 minutes. Dose area product 183 meza centimeters squared. Impression: 1. No active gastrointestinal hemorrhage was identified 2. Iatrogenic short segment LINDA dissection.
[2018-08-03] MEDS ORDERED: IV NORMAL SALINE 1000ML BAG 1,000 ML IV ONE (17:45)
[2018-08-03 17:53] LABS: BASO % 0 % (0-3); EOS % 0 % (0-3); LYMPH % 19 % (24-48); MEAN CORPUSCULAR HEMOGLOBIN 27 pg (25-35); MEAN CORPUSCULAR HGB CONC 34 g/dL (31-37); MEAN CORPUSCULAR VOLUME 78 fL (79-100); MONO # 0.3 x10^3/uL (0.0-1.1); MONO % 6 % (0-9); NEUT # 3.9 x10^3uL (1.8-7.7); NEUT % 74 % (31-73); PLATELET COUNT 112 x10^3/uL (140-400); RED BLOOD COUNT 2.06 x10^6/uL (3.50-5.40); RED CELL DISTRIBUTION WIDTH 19.3 % (11.5-14.5); WHITE BLOOD COUNT 5.3 x10^3/uL (4.0-11.0)
[2018-08-03 17:55] LABS: HEMOGLOBIN 5.5 g/dL (12.0-15.5)
[2018-08-03 18:46] LABS: PROTHROMBIN TIME PATIENT 17.9 SEC (11.7-14.0)
--- NOTE | 2018-08-03 18:56 | PDOC2 ---
CONSULT Date of Consult Date of Consult DATE: 08/03/18 TIME: 18:52 Reason for Consult Reason for Consult: Gastrointestinal bleed Referring Physician Referring Physician: Micheal Identification/Chief Complaint Chief Complaint Patient demented does not communicate well Source Source: Caregiver, Chart review History of Present Illness Reason for Visit: 77-year-old demented female was matted to the hospital due to blood in her bowel movement as well as a syncopal episode she is found to be hypotensive on the medical floor and transferred to the intensive care unit a CTA was performed which showed some bleeding in the proximal descending colon she underwent angiography which did not show any bleeding at the time. She currently is resting comfortably in bed although she does not communicate much her vital signs are stable she has had some more bloody bowel movement. Her last hemoglobin was 5.5 anesthesia is currently placing a central venous catheter. Current Problem List Problem List Problems Medical Problems: (1) GI bleed Status: Acute Current Medications Current Medications Current Medications Iohexol (Omnipaque 300 Mg/ml) 75 ml 1X ONCE IV Last administered on at 09:08; Start 08/02/18 at 09:30; Stop 08/02/18 at 09:31; Status DC Calcium Gluconate (Calcium Gluconate) 1,000 mg 1X ONCE IVP ; Start 08/02/18 at 09:00; Stop 08/02/18 at 09:01; Status UNV Dextrose (Dextrose 50%-Water Syringe) 25 gm 1X ONCE IV ; Start 08/02/18 at 09: 00; Stop 08/02/18 at 09:01; Status UNV Insulin Human Regular (HumuLIN R VIAL) 10 unit 1X ONCE IV ; Start 08/02/18 at 09:00; Stop 08/02/18 at 09:01; Status UNV Info (CONTRAST GIVEN -- Rx MONITORING) 1 each PRN DAILY PRN MC SEE COMMENTS; Start 08/02/18 at 09:15; Stop 08/03/18 at 15:39; Status DC Ondansetron HCl (Zofran) 4 mg PRN Q8HRS PRN IV NAUSEA/VOMITING; Start at 10:00; Stop 08/03/18 at 09:59; Status DC Sodium Chloride 1,000 ml @ 45 mls/hr [id number] IV Last administered on at 10:36; Start 08/02/18 at 10:00; Stop 08/02/18 at 12:37; Status DC Polyethylene Glycol (miraLAX Powder BULK BOTTLE) 238 gm 1X ONCE PO ; Start at 12:30; Stop 08/02/18 at 12:31; Status Cancel Pantoprazole Sodium (PROTONIX VIAL for IV PUSH) 40 mg DAILYAC IVP Last administered on 08/03/18at 08:29; Start 08/02/18 at 12:30 Polyethylene Glycol (miraLAX PACKET) 17 gm 1X ONCE PO ; Start 08/02/18 at 12: 30; Stop 08/02/18 at 12:47; Status DC Sodium Chloride 1,000 ml @ 125 mls/hr Q8H IV Last administered on 08/03/18at 03:01; Start 08/02/18 at 14:00; Stop 08/03/18 at 10:25; Status DC Sodium Chloride 250 ml @ 500 mls/hr 1X ONCE IV Last administered on at 13:00; Start 08/02/18 at 13:00; Stop 08/02/18 at 13:29; Status DC Heparin Sodium (Porcine) (Hep Lock Adult) 100 unit 1X ONCE IV ; Start at 13:30; Stop 08/02/18 at 18:47; Status DC Heparin Sodium (Porcine) (HEPARIN for NUC MED) 500 unit STK-MED ONCE IV ; Start 08/02/18 at 13:05; Stop 08/02/18 at 13:17; Status DC Polyethylene Glycol (miraLAX Powder BULK BOTTLE) 238 gm 1X ONCE PO Last administered on 08/02/18at 19:18; Start 08/02/18 at 19:00; Stop 08/02/18 at 19 :01; Status DC Haloperidol Lactate (Haldol Inj) 1 mg PRN Q6HRS PRN IVP AGITATION; Start 08/02 at 15:15 Zolpidem Tartrate (Ambien) 5 mg PRN QHS PRN PO INSOMNIA Last administered on at 21:36; Start 08/02/18 at 21:30 Sodium Monofluorophosphate (Fleet Adult) 133 ml 1X ONCE MN Last administered on 08/03/18at 08:00; Start 08/03/18 at 08:00; Stop 08/03/18 at 08:01; Status DC Sodium Monofluorophosphate (Fleet Adult) 133 ml 1X ONCE MN Last administered on 08/03/18at 09:00; Start 08/03/18 at 08:00; Stop 08/03/18 at 08:01; Status DC Potassium Chloride/Dextrose/ Sod Cl 1,000 ml @ 150 mls/hr Q6H40M IV Last administered on 08/03/18at 12:55; Start 08/03/18 at 11:00 Propofol 20 ml @ As Directed STK-MED ONCE IV ; Start 08/03/18 at 10:56; Stop 08/03/18 at 10:57; Status DC Lidocaine HCl (Xylocaine-Mpf 1% 2ml Vial) 2 ml STK-MED ONCE .ROUTE ; Start at 10:56; Stop 08/03/18 at 10:57; Status DC Ephedrine Sulfate (ePHEDrine PF IN SALINE SYRINGE) 50 mg STK-MED ONCE IV ; Start 08/03/18 at 11:37; Stop 08/03/18 at 11:38; Status DC Iohexol (Omnipaque 300 Mg/ml) 90 ml 1X ONCE IV Last administered on at 12:41; Start 08/03/18 at 13:00; Stop 08/03/18 at 13:01; Status DC Info (CONTRAST GIVEN -- Rx MONITORING) 1 each PRN DAILY PRN MC SEE COMMENTS; Start 08/03/18 at 12:30; Stop 08/05/18 at 12:29 Iohexol (Omnipaque 300 Mg/ml) 100 ml STK-MED ONCE .ROUTE ; Start 08/03/18 at 12 :28; Stop 08/03/18 at 12:29; Status DC Ondansetron HCl (Zofran) 4 mg STK-MED ONCE .ROUTE ; Start 08/03/18 at 14:10; Stop 08/03/18 at 14:11; Status DC Famotidine (Pepcid Vial) 20 mg STK-MED ONCE .ROUTE ; Start 08/03/18 at 14:10; Stop 08/03/18 at 14:11; Status DC Ketamine HCl (Ketamine) 50 mg STK-MED ONCE .ROUTE ; Start 08/03/18 at 14:10; Stop 08/03/18 at 14:11; Status DC Succinylcholine Chloride (Anectine) 200 mg STK-MED ONCE .ROUTE ; Start at 14:10; Stop 08/03/18 at 14:11; Status DC Etomidate (Amidate) 20 mg STK-MED ONCE IV ; Start 08/03/18 at 14:11; Stop at 14:12; Status DC Fentanyl Citrate (Fentanyl 2ml Vial) 100 mcg STK-MED ONCE .ROUTE ; Start at 14:11; Stop 08/03/18 at 14:12; Status DC Lidocaine/Sodium Bicarbonate (Buffered Lidocaine 1%) 3 ml STK-MED ONCE .ROUTE ; Start 08/03/18 at 14:20; Stop 08/03/18 at 14:21; Status DC Iohexol (Omnipaque 240 Mg/ml) 50 ml STK-MED ONCE .ROUTE ; Start 08/03/18 at 14: 20; Stop 08/03/18 at 14:21; Status DC Iohexol (Omnipaque 300 Mg/ml) 100 ml STK-MED ONCE .ROUTE ; Start 08/03/18 at 14 :20; Stop 08/03/18 at 14:21; Status DC Heparin Sodium/ Sodium Chloride 1,000 ml @ As Directed STK-MED ONCE .ROUTE ; Start 08/03/18 at 14:20; Stop 08/03/18 at 14:21; Status DC Iohexol (Omnipaque 300 Mg/ml) 100 ml 1X ONCE IART Last administered on at 16:00; Start 08/03/18 at 16:00; Stop 08/03/18 at 16:01; Status DC Lidocaine/Sodium Bicarbonate (Buffered Lidocaine 1%) 4 ml 1X ONCE IJ Last administered on 08/03/18at 16:12; Start 08/03/18 at 16:15; Stop 08/03/18 at 16 :20; Status DC Sodium Chloride 1,000 ml @ 1,000 mls/hr 1X ONCE IV Last administered on 08/03at 17:45; Start 08/03/18 at 17:45; Stop 08/03/18 at 18:44; Status DC Active Scripts Active Reported Namenda (Memantine Hcl) 10 Mg Tablet 1 Tab PO BID Mirtazapine 15 Mg Tablet 1 Tab PO QHS Senna Plus Tablet (Sennosides/Docusate Sodium) 1 Each Tablet 2 Each PO HS Aspirin Ec (Aspirin) 81 Mg Tablet.dr 1 Tab PO DAILY Cymbalta (Duloxetine Hcl) 30 Mg Capsule.dr 30 Mg PO BID Mirtazapine 15 Mg Tablet 1 Tab PO QHS Gabapentin 100 Mg Capsule 1 Cap PO HS Allergies Allergies: Coded Allergies: No Known Drug Allergies (Unverified , 08/03/18) Physical Exam General: Cooperative, No acute distress HEENT: Atraumatic, PERRLA, EOMI Lungs: Clear to auscultation, Normal air movement Heart: Regular rate, No murmurs Abdomen: Soft, No tenderness Extremities: No edema Skin: No significant lesion Vitals VITALS Vital Signs Date Time Temp Pulse Resp B/P (MAP) Pulse Ox O2 Delivery O2 Flow Rate FiO2 08/03/18 18:33 97.5 89 16 93/49 97.5 08/03/18 17:45 96 Room Air Labs Labs Laboratory Tests Test 08/02/18 08:15 08/02/18 12:55 08/03/18 01:00 08/03/18 04:00 White Blood Count 5.3 x10^3/uL (4.0-11.0) 5.8 x10^3/uL (4.0-11.0) 9.3 x10^3/uL (4.0-11.0) 9.0 x10^3/uL (4.0-11.0) Red Blood Count 4.04 x10^6/uL (3.50-5.40) 3.37 x10^6/uL (3.50-5.40) 3.87 x10^6/uL (3.50-5.40) 3.72 x10^6/uL (3.50-5.40) Hemoglobin 9.4 g/dL (12.0-15.5) 7.8 g/dL (12.0-15.5) 10.2 g/dL (12.0-15.5) 9.9 g/dL (12.0-15.5) Hematocrit 29.4 % (36.0-47.0) 24.6 % (36.0-47.0) 29.6 % (36.0-47.0) 28.9 % (36.0-47.0) Mean Corpuscular Volume 73 fL (79-100) 73 fL (79-100) 77 fL (79-100) 78 fL ( 79-100) Mean Corpuscular Hemoglobin 23 pg (25-35) 23 pg (25-35) 26 pg (25-35) 27 pg ( 25-35) Mean Corpuscular Hemoglobin Concent 32 g/dL (31-37) 32 g/dL (31-37) 34 g/dL (31-37) 34 g/dL (31-37) Red Cell Distribution Width 16.3 % (11.5-14.5) 16.6 % (11.5-14.5) 19.7 % (11.5-14.5) 19.1 % (11.5-14.5) Platelet Count 196 x10^3/uL (140-400) 174 x10^3/uL (140-400) 155 x10^3/uL (140-400) 144 x10^3/uL (140-400) Neutrophils (%) (Auto) 66 % (31-73) 84 % (31-73) Lymphocytes (%) (Auto) 26 % (24-48) 11 % (24-48) Monocytes (%) (Auto) 5 % (0-9) 5 % (0-9) Eosinophils (%) (Auto) 2 % (0-3) 0 % (0-3) Basophils (%) (Auto) 1 % (0-3) 0 % (0-3) Neutrophils # (Auto) 3.5 x10^3uL (1.8-7.7) 7.5 x10^3uL (1.8-7.7) Lymphocytes # (Auto) 1.4 x10^3/uL (1.0-4.8) 1.0 x10^3/uL (1.0-4.8) Monocytes # (Auto) 0.3 x10^3/uL (0.0-1.1) 0.4 x10^3/uL (0.0-1.1) Eosinophils # (Auto) 0.1 x10^3/uL (0.0-0.7) 0.0 x10^3/uL (0.0-0.7) Basophils # (Auto) 0.0 x10^3/uL (0.0-0.2) 0.0 x10^3/uL (0.0-0.2) Prothrombin Time 13.6 SEC (11.7-14.0) Prothromb Time International Ratio 1.1 (0.8-1.1) Activated Partial Thromboplast Time 25 SEC (24-38) Sodium Level 146 mmol/L (136-145) 147 mmol/L (136-145) Potassium Level 3.9 mmol/L (3.5-5.1) 3.5 mmol/L (3.5-5.1) Chloride Level 109 mmol/L (98-107) 112 mmol/L (98-107) Carbon Dioxide Level 28 mmol/L (21-32) 24 mmol/L (21-32) Anion Gap 9 (6-14) 11 (6-14) Blood Urea Nitrogen 23 mg/dL (7-20) 25 mg/dL (7-20) Creatinine 1.0 mg/dL (0.6-1.0) 0.9 mg/dL (0.6-1.0) Estimated GFR (Cockcroft-Gault) 65.2 73.7 Glucose Level 138 mg/dL (70-99) 134 mg/dL (70-99) Lactic Acid Level 1.2 mmol/L (0.4-2.0) Calcium Level 8.6 mg/dL (8.5-10.1) 7.9 mg/dL (8.5-10.1) Total Bilirubin 0.4 mg/dL (0.2-1.0) Direct Bilirubin 0.1 mg/dL (0.0-0.2) Aspartate Amino Transf (AST/SGOT) 17 U/L (15-37) Alanine Aminotransferase (ALT/SGPT) 17 U/L (14-59) Alkaline Phosphatase 46 U/L (46-116) Troponin I Quantitative < 0.017 ng/mL (0.000-0.055) Total Protein 5.9 g/dL (6.4-8.2) Albumin 3.2 g/dL (3.4-5.0) Lipase 40 U/L (73-393) Thyroid Stimulating Hormone (TSH) 0.648 uIU/mL (0.358-3.74) Test 08/03/18 12:15 08/03/18 17:45 08/03/18 18:30 White Blood Count 7.1 x10^3/uL (4.0-11.0) 5.3 x10^3/uL (4.0-11.0) Red Blood Count 3.40 x10^6/uL (3.50-5.40) 2.06 x10^6/uL (3.50-5.40) Hemoglobin 8.9 g/dL (12.0-15.5) 5.5 g/dL (12.0-15.5) Hematocrit 26.8 % (36.0-47.0) 16.0 % (36.0-47.0) Mean Corpuscular Volume 79 fL (79-100) 78 fL (79-100) Mean Corpuscular Hemoglobin 26 pg (25-35) 27 pg (25-35) Mean Corpuscular Hemoglobin Concent 33 g/dL (31-37) 34 g/dL (31-37) Red Cell Distribution Width 19.2 % (11.5-14.5) 19.3 % (11.5-14.5) Platelet Count 125 x10^3/uL (140-400) 112 x10^3/uL (140-400) Neutrophils (%) (Auto) 74 % (31-73) Lymphocytes (%) (Auto) 19 % (24-48) Monocytes (%) (Auto) 6 % (0-9) Eosinophils (%) (Auto) 0 % (0-3) Basophils (%) (Auto) 0 % (0-3) Neutrophils # (Auto) 3.9 x10^3uL (1.8-7.7) Lymphocytes # (Auto) 1.0 x10^3/uL (1.0-4.8) Monocytes # (Auto) 0.3 x10^3/uL (0.0-1.1) Eosinophils # (Auto) 0.0 x10^3/uL (0.0-0.7) Basophils # (Auto) 0.0 x10^3/uL (0.0-0.2) Prothrombin Time 17.9 SEC (11.7-14.0) Prothromb Time International Ratio 1.5 (0.8-1.1) Laboratory Tests Test 08/03/18 01:00 08/03/18 04:00 08/03/18 12:15 08/03/18 17:45 White Blood Count 9.3 x10^3/uL (4.0-11.0) 9.0 x10^3/uL (4.0-11.0) 7.1 x10^3/uL (4.0-11.0) 5.3 x10^3/uL (4.0-11.0) Red Blood Count 3.87 x10^6/uL (3.50-5.40) 3.72 x10^6/uL (3.50-5.40) 3.40 x10^6/uL (3.50-5.40) 2.06 x10^6/uL (3.50-5.40) Hemoglobin 10.2 g/dL (12.0-15.5) 9.9 g/dL (12.0-15.5) 8.9 g/dL (12.0-15.5) 5.5 g/dL (12.0-15.5) Hematocrit 29.6 % (36.0-47.0) 28.9 % (36.0-47.0) 26.8 % (36.0-47.0) 16.0 % (36.0-47.0) Mean Corpuscular Volume 77 fL (79-100) 78 fL (79-100) 79 fL (79-100) 78 fL ( 79-100) Mean Corpuscular Hemoglobin 26 pg (25-35) 27 pg (25-35) 26 pg (25-35) 27 pg ( 25-35) Mean Corpuscular Hemoglobin Concent 34 g/dL (31-37) 34 g/dL (31-37) 33 g/dL (31-37) 34 g/dL (31-37) Red Cell Distribution Width 19.7 % (11.5-14.5) 19.1 % (11.5-14.5) 19.2 % (11.5-14.5) 19.3 % (11.5-14.5) Platelet Count 155 x10^3/uL (140-400) 144 x10^3/uL (140-400) 125 x10^3/uL (140-400) 112 x10^3/uL (140-400) Neutrophils (%) (Auto) 84 % (31-73) 74 % (31-73) Lymphocytes (%) (Auto) 11 % (24-48) 19 % (24-48) Monocytes (%) (Auto) 5 % (0-9) 6 % (0-9) Eosinophils (%) (Auto) 0 % (0-3) 0 % (0-3) Basophils (%) (Auto) 0 % (0-3) 0 % (0-3) Neutrophils # (Auto) 7.5 x10^3uL (1.8-7.7) 3.9 x10^3uL (1.8-7.7) Lymphocytes # (Auto) 1.0 x10^3/uL (1.0-4.8) 1.0 x10^3/uL (1.0-4.8) Monocytes # (Auto) 0.4 x10^3/uL (0.0-1.1) 0.3 x10^3/uL (0.0-1.1) Eosinophils # (Auto) 0.0 x10^3/uL (0.0-0.7) 0.0 x10^3/uL (0.0-0.7) Basophils # (Auto) 0.0 x10^3/uL (0.0-0.2) 0.0 x10^3/uL (0.0-0.2) Sodium Level 147 mmol/L (136-145) Potassium Level 3.5 mmol/L (3.5-5.1) Chloride Level 112 mmol/L (98-107) Carbon Dioxide Level 24 mmol/L (21-32) Anion Gap 11 (6-14) Blood Urea Nitrogen 25 mg/dL (7-20) Creatinine 0.9 mg/dL (0.6-1.0) Estimated GFR (Cockcroft-Gault) 73.7 Glucose Level 134 mg/dL (70-99) Calcium Level 7.9 mg/dL (8.5-10.1) Thyroid Stimulating Hormone (TSH) 0.648 uIU/mL (0.358-3.74) Test 08/03/18 18:30 Prothrombin Time 17.9 SEC (11.7-14.0) Prothromb Time International Ratio 1.5 (0.8-1.1) Images Images As in the history of present illness Assessment/Plan Assessment/Plan GI bleed acute anemia Plan for transfusion 2 units packed red blood cells and platelets reevaluate if she continues to bleed will lead surgical intervention Spoke with her daughter and son-in-law she is currently a DO NOT INTUBATE but her daughter did state that if surgery was the only option they would be agreeable even knowing that she has significant risk for complications including XI MILLER MD Aug 03, 2018 18:56
[2018-08-03 19:04] LABS: RED BLOOD COUNT 2.11 x10^6/uL (3.50-5.40); RED CELL DISTRIBUTION WIDTH 19.3 % (11.5-14.5); WHITE BLOOD COUNT 5.7 x10^3/uL (4.0-11.0)
[2018-08-03 19:06] LABS: HEMATOCRIT 16.8 % (36.0-47.0); HEMOGLOBIN 5.6 g/dL (12.0-15.5)
--- NOTE | 2018-08-03 19:19 | PDOC ---
Date and Time Patient needing blood products with inadequate peripheral access. Hb 5.5 R neck chlorasept prep, large sterile drape, cap, mask, gown, gloves. Strict sterile technique 1% lidocaine, R IJ located readily, Wire and 3 lumen w/o difficulty, free flow all lumens. No apparent complications. Sutured at 15cm, biopatch, sterile dressing CXR. Tip in SVC a little too close to RA. Withdrawn 1.5cm. Current Medications Current Medications Iohexol (Omnipaque 300 Mg/ml) 75 ml 1X ONCE IV Last administered on at 09:08; Start 08/02/18 at 09:30; Stop 08/02/18 at 09:31; Status DC Calcium Gluconate (Calcium Gluconate) 1,000 mg 1X ONCE IVP ; Start 08/02/18 at 09:00; Stop 08/02/18 at 09:01; Status UNV Dextrose (Dextrose 50%-Water Syringe) 25 gm 1X ONCE IV ; Start 08/02/18 at 09: 00; Stop 08/02/18 at 09:01; Status UNV Insulin Human Regular (HumuLIN R VIAL) 10 unit 1X ONCE IV ; Start 08/02/18 at 09:00; Stop 08/02/18 at 09:01; Status UNV Info (CONTRAST GIVEN -- Rx MONITORING) 1 each PRN DAILY PRN MC SEE COMMENTS; Start 08/02/18 at 09:15; Stop 08/03/18 at 15:39; Status DC Ondansetron HCl (Zofran) 4 mg PRN Q8HRS PRN IV NAUSEA/VOMITING; Start at 10:00; Stop 08/03/18 at 09:59; Status DC Sodium Chloride 1,000 ml @ 45 mls/hr [id number] IV Last administered on at 10:36; Start 08/02/18 at 10:00; Stop 08/02/18 at 12:37; Status DC Polyethylene Glycol (miraLAX Powder BULK BOTTLE) 238 gm 1X ONCE PO ; Start at 12:30; Stop 08/02/18 at 12:31; Status Cancel Pantoprazole Sodium (PROTONIX VIAL for IV PUSH) 40 mg DAILYAC IVP Last administered on 08/03/18at 08:29; Start 08/02/18 at 12:30 Polyethylene Glycol (miraLAX PACKET) 17 gm 1X ONCE PO ; Start 08/02/18 at 12: 30; Stop 08/02/18 at 12:47; Status DC Sodium Chloride 1,000 ml @ 125 mls/hr Q8H IV Last administered on 08/03/18at 03:01; Start 08/02/18 at 14:00; Stop 08/03/18 at 10:25; Status DC Sodium Chloride 250 ml @ 500 mls/hr 1X ONCE IV Last administered on at 13:00; Start 08/02/18 at 13:00; Stop 08/02/18 at 13:29; Status DC Heparin Sodium (Porcine) (Hep Lock Adult) 100 unit 1X ONCE IV ; Start at 13:30; Stop 08/02/18 at 18:47; Status DC Heparin Sodium (Porcine) (HEPARIN for NUC MED) 500 unit STK-MED ONCE IV ; Start 08/02/18 at 13:05; Stop 08/02/18 at 13:17; Status DC Polyethylene Glycol (miraLAX Powder BULK BOTTLE) 238 gm 1X ONCE PO Last administered on 08/02/18at 19:18; Start 08/02/18 at 19:00; Stop 08/02/18 at 19 :01; Status DC Haloperidol Lactate (Haldol Inj) 1 mg PRN Q6HRS PRN IVP AGITATION; Start 08/02 at 15:15 Zolpidem Tartrate (Ambien) 5 mg PRN QHS PRN PO INSOMNIA Last administered on at 21:36; Start 08/02/18 at 21:30 Sodium Monofluorophosphate (Fleet Adult) 133 ml 1X ONCE PA Last administered on 08/03/18at 08:00; Start 08/03/18 at 08:00; Stop 08/03/18 at 08:01; Status DC Sodium Monofluorophosphate (Fleet Adult) 133 ml 1X ONCE PA Last administered on 08/03/18at 09:00; Start 08/03/18 at 08:00; Stop 08/03/18 at 08:01; Status DC Potassium Chloride/Dextrose/ Sod Cl 1,000 ml @ 150 mls/hr Q6H40M IV Last administered on 08/03/18at 12:55; Start 08/03/18 at 11:00 Propofol 20 ml @ As Directed STK-MED ONCE IV ; Start 08/03/18 at 10:56; Stop 08/03/18 at 10:57; Status DC Lidocaine HCl (Xylocaine-Mpf 1% 2ml Vial) 2 ml STK-MED ONCE .ROUTE ; Start at 10:56; Stop 08/03/18 at 10:57; Status DC Ephedrine Sulfate (ePHEDrine PF IN SALINE SYRINGE) 50 mg STK-MED ONCE IV ; Start 08/03/18 at 11:37; Stop 08/03/18 at 11:38; Status DC Iohexol (Omnipaque 300 Mg/ml) 90 ml 1X ONCE IV Last administered on at 12:41; Start 08/03/18 at 13:00; Stop 08/03/18 at 13:01; Status DC Info (CONTRAST GIVEN -- Rx MONITORING) 1 each PRN DAILY PRN MC SEE COMMENTS; Start 08/03/18 at 12:30; Stop 08/05/18 at 12:29 Iohexol (Omnipaque 300 Mg/ml) 100 ml STK-MED ONCE .ROUTE ; Start 08/03/18 at 12 :28; Stop 08/03/18 at 12:29; Status DC Ondansetron HCl (Zofran) 4 mg STK-MED ONCE .ROUTE ; Start 08/03/18 at 14:10; Stop 08/03/18 at 14:11; Status DC Famotidine (Pepcid Vial) 20 mg STK-MED ONCE .ROUTE ; Start 08/03/18 at 14:10; Stop 08/03/18 at 14:11; Status DC Ketamine HCl (Ketamine) 50 mg STK-MED ONCE .ROUTE ; Start 08/03/18 at 14:10; Stop 08/03/18 at 14:11; Status DC Succinylcholine Chloride (Anectine) 200 mg STK-MED ONCE .ROUTE ; Start at 14:10; Stop 08/03/18 at 14:11; Status DC Etomidate (Amidate) 20 mg STK-MED ONCE IV ; Start 08/03/18 at 14:11; Stop at 14:12; Status DC Fentanyl Citrate (Fentanyl 2ml Vial) 100 mcg STK-MED ONCE .ROUTE ; Start at 14:11; Stop 08/03/18 at 14:12; Status DC Lidocaine/Sodium Bicarbonate (Buffered Lidocaine 1%) 3 ml STK-MED ONCE .ROUTE ; Start 08/03/18 at 14:20; Stop 08/03/18 at 14:21; Status DC Iohexol (Omnipaque 240 Mg/ml) 50 ml STK-MED ONCE .ROUTE ; Start 08/03/18 at 14: 20; Stop 08/03/18 at 14:21; Status DC Iohexol (Omnipaque 300 Mg/ml) 100 ml STK-MED ONCE .ROUTE ; Start 08/03/18 at 14 :20; Stop 08/03/18 at 14:21; Status DC Heparin Sodium/ Sodium Chloride 1,000 ml @ As Directed STK-MED ONCE .ROUTE ; Start 08/03/18 at 14:20; Stop 08/03/18 at 14:21; Status DC Iohexol (Omnipaque 300 Mg/ml) 100 ml 1X ONCE IART Last administered on at 16:00; Start 08/03/18 at 16:00; Stop 08/03/18 at 16:01; Status DC Lidocaine/Sodium Bicarbonate (Buffered Lidocaine 1%) 4 ml 1X ONCE IJ Last administered on 08/03/18at 16:12; Start 08/03/18 at 16:15; Stop 08/03/18 at 16 :20; Status DC Sodium Chloride 1,000 ml @ 1,000 mls/hr 1X ONCE IV Last administered on 08/03at 17:45; Start 08/03/18 at 17:45; Stop 08/03/18 at 18:44; Status DC Active Scripts Active Reported Namenda (Memantine Hcl) 10 Mg Tablet 1 Tab PO BID Mirtazapine 15 Mg Tablet 1 Tab PO QHS Senna Plus Tablet (Sennosides/Docusate Sodium) 1 Each Tablet 2 Each PO HS Aspirin Ec (Aspirin) 81 Mg Tablet. 1 Tab PO DAILY Cymbalta (Duloxetine Hcl) 30 Mg Capsule. 30 Mg PO BID Mirtazapine 15 Mg Tablet 1 Tab PO QHS Gabapentin 100 Mg Capsule 1 Cap PO HS Pertinent Labs/Test Laboratory Tests Test 08/02/18 08:15 08/02/18 12:55 08/03/18 01:00 08/03/18 04:00 White Blood Count 5.3 x10^3/uL (4.0-11.0) 5.8 x10^3/uL (4.0-11.0) 9.3 x10^3/uL (4.0-11.0) 9.0 x10^3/uL (4.0-11.0) Red Blood Count 4.04 x10^6/uL (3.50-5.40) 3.37 x10^6/uL (3.50-5.40) 3.87 x10^6/uL (3.50-5.40) 3.72 x10^6/uL (3.50-5.40) Hemoglobin 9.4 g/dL (12.0-15.5) 7.8 g/dL (12.0-15.5) 10.2 g/dL (12.0-15.5) 9.9 g/dL (12.0-15.5) Hematocrit 29.4 % (36.0-47.0) 24.6 % (36.0-47.0) 29.6 % (36.0-47.0) 28.9 % (36.0-47.0) Mean Corpuscular Volume 73 fL (79-100) 73 fL (79-100) 77 fL (79-100) 78 fL ( 79-100) Mean Corpuscular Hemoglobin 23 pg (25-35) 23 pg (25-35) 26 pg (25-35) 27 pg ( 25-35) Mean Corpuscular Hemoglobin Concent 32 g/dL (31-37) 32 g/dL (31-37) 34 g/dL (31-37) 34 g/dL (31-37) Red Cell Distribution Width 16.3 % (11.5-14.5) 16.6 % (11.5-14.5) 19.7 % (11.5-14.5) 19.1 % (11.5-14.5) Platelet Count 196 x10^3/uL (140-400) 174 x10^3/uL (140-400) 155 x10^3/uL (140-400) 144 x10^3/uL (140-400) Neutrophils (%) (Auto) 66 % (31-73) 84 % (31-73) Lymphocytes (%) (Auto) 26 % (24-48) 11 % (24-48) Monocytes (%) (Auto) 5 % (0-9) 5 % (0-9) Eosinophils (%) (Auto) 2 % (0-3) 0 % (0-3) Basophils (%) (Auto) 1 % (0-3) 0 % (0-3) Neutrophils # (Auto) 3.5 x10^3uL (1.8-7.7) 7.5 x10^3uL (1.8-7.7) Lymphocytes # (Auto) 1.4 x10^3/uL (1.0-4.8) 1.0 x10^3/uL (1.0-4.8) Monocytes # (Auto) 0.3 x10^3/uL (0.0-1.1) 0.4 x10^3/uL (0.0-1.1) Eosinophils # (Auto) 0.1 x10^3/uL (0.0-0.7) 0.0 x10^3/uL (0.0-0.7) Basophils # (Auto) 0.0 x10^3/uL (0.0-0.2) 0.0 x10^3/uL (0.0-0.2) Prothrombin Time 13.6 SEC (11.7-14.0) Prothromb Time International Ratio 1.1 (0.8-1.1) Activated Partial Thromboplast Time 25 SEC (24-38) Sodium Level 146 mmol/L (136-145) 147 mmol/L (136-145) Potassium Level 3.9 mmol/L (3.5-5.1) 3.5 mmol/L (3.5-5.1) Chloride Level 109 mmol/L (98-107) 112 mmol/L (98-107) Carbon Dioxide Level 28 mmol/L (21-32) 24 mmol/L (21-32) Anion Gap 9 (6-14) 11 (6-14) Blood Urea Nitrogen 23 mg/dL (7-20) 25 mg/dL (7-20) Creatinine 1.0 mg/dL (0.6-1.0) 0.9 mg/dL (0.6-1.0) Estimated GFR (Cockcroft-Gault) 65.2 73.7 Glucose Level 138 mg/dL (70-99) 134 mg/dL (70-99) Lactic Acid Level 1.2 mmol/L (0.4-2.0) Calcium Level 8.6 mg/dL (8.5-10.1) 7.9 mg/dL (8.5-10.1) Total Bilirubin 0.4 mg/dL (0.2-1.0) Direct Bilirubin 0.1 mg/dL (0.0-0.2) Aspartate Amino Transf (AST/SGOT) 17 U/L (15-37) Alanine Aminotransferase (ALT/SGPT) 17 U/L (14-59) Alkaline Phosphatase 46 U/L (46-116) Troponin I Quantitative < 0.017 ng/mL (0.000-0.055) Total Protein 5.9 g/dL (6.4-8.2) Albumin 3.2 g/dL (3.4-5.0) Lipase 40 U/L (73-393) Thyroid Stimulating Hormone (TSH) 0.648 uIU/mL (0.358-3.74) Test 08/03/18 12:15 08/03/18 17:45 08/03/18 18:30 08/03/18 19:00 White Blood Count 7.1 x10^3/uL (4.0-11.0) 5.3 x10^3/uL (4.0-11.0) 5.7 x10^3/uL (4.0-11.0) Red Blood Count 3.40 x10^6/uL (3.50-5.40) 2.06 x10^6/uL (3.50-5.40) 2.11 x10^6/uL (3.50-5.40) Hemoglobin 8.9 g/dL (12.0-15.5) 5.5 g/dL (12.0-15.5) 5.6 g/dL (12.0-15.5) Hematocrit 26.8 % (36.0-47.0) 16.0 % (36.0-47.0) 16.8 % (36.0-47.0) Mean Corpuscular Volume 79 fL (79-100) 78 fL (79-100) 80 fL (79-100) Mean Corpuscular Hemoglobin 26 pg (25-35) 27 pg (25-35) 27 pg (25-35) Mean Corpuscular Hemoglobin Concent 33 g/dL (31-37) 34 g/dL (31-37) 33 g/dL (31-37) Red Cell Distribution Width 19.2 % (11.5-14.5) 19.3 % (11.5-14.5) 19.3 % (11.5-14.5) Platelet Count 125 x10^3/uL (140-400) 112 x10^3/uL (140-400) 77 x10^3/uL (140-400) Neutrophils (%) (Auto) 74 % (31-73) Lymphocytes (%) (Auto) 19 % (24-48) Monocytes (%) (Auto) 6 % (0-9) Eosinophils (%) (Auto) 0 % (0-3) Basophils (%) (Auto) 0 % (0-3) Neutrophils # (Auto) 3.9 x10^3uL (1.8-7.7) Lymphocytes # (Auto) 1.0 x10^3/uL (1.0-4.8) Monocytes # (Auto) 0.3 x10^3/uL (0.0-1.1) Eosinophils # (Auto) 0.0 x10^3/uL (0.0-0.7) Basophils # (Auto) 0.0 x10^3/uL (0.0-0.2) Prothrombin Time 17.9 SEC (11.7-14.0) Prothromb Time International Ratio 1.5 (0.8-1.1) Laboratory Tests Test 08/03/18 01:00 08/03/18 04:00 08/03/18 12:15 08/03/18 17:45 White Blood Count 9.3 x10^3/uL (4.0-11.0) 9.0 x10^3/uL (4.0-11.0) 7.1 x10^3/uL (4.0-11.0) 5.3 x10^3/uL (4.0-11.0) Red Blood Count 3.87 x10^6/uL (3.50-5.40) 3.72 x10^6/uL (3.50-5.40) 3.40 x10^6/uL (3.50-5.40) 2.06 x10^6/uL (3.50-5.40) Hemoglobin 10.2 g/dL (12.0-15.5) 9.9 g/dL (12.0-15.5) 8.9 g/dL (12.0-15.5) 5.5 g/dL (12.0-15.5) Hematocrit 29.6 % (36.0-47.0) 28.9 % (36.0-47.0) 26.8 % (36.0-47.0) 16.0 % (36.0-47.0) Mean Corpuscular Volume 77 fL (79-100) 78 fL (79-100) 79 fL (79-100) 78 fL ( 79-100) Mean Corpuscular Hemoglobin 26 pg (25-35) 27 pg (25-35) 26 pg (25-35) 27 pg ( 25-35) Mean Corpuscular Hemoglobin Concent 34 g/dL (31-37) 34 g/dL (31-37) 33 g/dL (31-37) 34 g/dL (31-37) Red Cell Distribution Width 19.7 % (11.5-14.5) 19.1 % (11.5-14.5) 19.2 % (11.5-14.5) 19.3 % (11.5-14.5) Platelet Count 155 x10^3/uL (140-400) 144 x10^3/uL (140-400) 125 x10^3/uL (140-400) 112 x10^3/uL (140-400) Neutrophils (%) (Auto) 84 % (31-73) 74 % (31-73) Lymphocytes (%) (Auto) 11 % (24-48) 19 % (24-48) Monocytes (%) (Auto) 5 % (0-9) 6 % (0-9) Eosinophils (%) (Auto) 0 % (0-3) 0 % (0-3) Basophils (%) (Auto) 0 % (0-3) 0 % (0-3) Neutrophils # (Auto) 7.5 x10^3uL (1.8-7.7) 3.9 x10^3uL (1.8-7.7) Lymphocytes # (Auto) 1.0 x10^3/uL (1.0-4.8) 1.0 x10^3/uL (1.0-4.8) Monocytes # (Auto) 0.4 x10^3/uL (0.0-1.1) 0.3 x10^3/uL (0.0-1.1) Eosinophils # (Auto) 0.0 x10^3/uL (0.0-0.7) 0.0 x10^3/uL (0.0-0.7) Basophils # (Auto) 0.0 x10^3/uL (0.0-0.2) 0.0 x10^3/uL (0.0-0.2) Sodium Level 147 mmol/L (136-145) Potassium Level 3.5 mmol/L (3.5-5.1) Chloride Level 112 mmol/L (98-107) Carbon Dioxide Level 24 mmol/L (21-32) Anion Gap 11 (6-14) Blood Urea Nitrogen 25 mg/dL (7-20) Creatinine 0.9 mg/dL (0.6-1.0) Estimated GFR (Cockcroft-Gault) 73.7 Glucose Level 134 mg/dL (70-99) Calcium Level 7.9 mg/dL (8.5-10.1) Thyroid Stimulating Hormone (TSH) 0.648 uIU/mL (0.358-3.74) Test 08/03/18 18:30 08/03/18 19:00 Prothrombin Time 17.9 SEC (11.7-14.0) Prothromb Time International Ratio 1.5 (0.8-1.1) White Blood Count 5.7 x10^3/uL (4.0-11.0) Red Blood Count 2.11 x10^6/uL (3.50-5.40) Hemoglobin 5.6 g/dL (12.0-15.5) Hematocrit 16.8 % (36.0-47.0) Mean Corpuscular Volume 80 fL (79-100) Mean Corpuscular Hemoglobin 27 pg (25-35) Mean Corpuscular Hemoglobin Concent 33 g/dL (31-37) Red Cell Distribution Width 19.3 % (11.5-14.5) Platelet Count 77 x10^3/uL (140-400) LAST VITALS Vital Signs Date Time Temp Pulse Resp B/P (MAP) Pulse Ox O2 Delivery O2 Flow Rate FiO2 08/03/18 18:33 97.5 89 16 93/49 97.5 08/03/18 17:45 96 Room Air IDA PIERCE MD Aug 03, 2018 19:19
[2018-08-03 21:12] LABS: BASO % 0 % (0-3); EOS % 1 % (0-3); HEMATOCRIT 23.2 % (36.0-47.0); HEMOGLOBIN 8.1 g/dL (12.0-15.5); LYMPH # 1.5 x10^3/uL (1.0-4.8); LYMPH % 20 % (24-48); MEAN CORPUSCULAR HEMOGLOBIN 29 pg (25-35); MEAN CORPUSCULAR HGB CONC 35 g/dL (31-37); MEAN CORPUSCULAR VOLUME 82 fL (79-100); MONO # 0.5 x10^3/uL (0.0-1.1); MONO % 7 % (0-9); NEUT # 5.6 x10^3uL (1.8-7.7); NEUT % 73 % (31-73); PLATELET COUNT 154 x10^3/uL (140-400); RED BLOOD COUNT 2.83 x10^6/uL (3.50-5.40); RED CELL DISTRIBUTION WIDTH 18.4 % (11.5-14.5); WHITE BLOOD COUNT 7.7 x10^3/uL (4.0-11.0)
[2018-08-03] MEDS: ZOLPIDEM 5 MG TABLET. PO PRN (21:35)
[2018-08-03] MEDS: HALOPERIDOL LACTATE 5 MG/ML VIAL. IVP PRN (21:58)
[2018-08-04] VITALS (31 sets, daily range): BP systolic 105–141; BP diastolic 66–92
[2018-08-04] MEDS: POTASSIUM CL 20MEQ D5-0.9%NACL 1,000 ML IV SCH ×2 (00:30→06:03)
[2018-08-04 05:18] LABS: BASO % 0 % (0-3); EOS % 1 % (0-3); HEMATOCRIT 21.6 % (36.0-47.0); HEMOGLOBIN 7.6 g/dL (12.0-15.5); LYMPH # 1.3 x10^3/uL (1.0-4.8); LYMPH % 19 % (24-48); MEAN CORPUSCULAR HEMOGLOBIN 28 pg (25-35); MEAN CORPUSCULAR HGB CONC 35 g/dL (31-37); MEAN CORPUSCULAR VOLUME 81 fL (79-100); MONO # 0.5 x10^3/uL (0.0-1.1); MONO % 7 % (0-9); NEUT # 5.3 x10^3uL (1.8-7.7); NEUT % 74 % (31-73); PLATELET COUNT 152 x10^3/uL (140-400); RED BLOOD COUNT 2.68 x10^6/uL (3.50-5.40); RED CELL DISTRIBUTION WIDTH 18.3 % (11.5-14.5); WHITE BLOOD COUNT 7.2 x10^3/uL (4.0-11.0)
[2018-08-04 05:47] LABS: CALCIUM 7.3 mg/dL (8.5-10.1); CREATININE 0.7 mg/dL (0.6-1.0); GFR 98.4; POTASSIUM 3.1 mmol/L (3.5-5.1)
--- NOTE | 2018-08-04 07:58 | RAD ---
EXAM: AP View of the chest -Portable supine DATE: 08/03/2018 6:59 PM INDICATION: ICU PATIENT. CENTRAL LINE PLACEMENT. COMPARISON: No Prior FINDINGS: Right IJ central venous catheter tip terminates at the distal SVC/cavoatrial junction. Heart is not enlarged. Mediastinal prominence exaggerated by portable supine technique. No focal parenchymal airspace opacity. No pleural effusion or pneumothorax. IMPRESSION: Right IJ central venous catheter tip terminates at the distal SVC. Electronically signed by: Lionel Rico MD (08/04/2018 7:54 AM) [facility]
--- NOTE | 2018-08-04 08:56 | PDOC ---
SURGICAL PROGRESS NOTE Subjective She confused but cooperative parent distress Vital Signs Vital Signs Date Time Temp Pulse Resp B/P (MAP) Pulse Ox O2 Delivery O2 Flow Rate FiO2 08/04/18 07:49 98.6 72 12 123/77 (92) 100 Room Air 98.6 08/04/18 04:00 10.0 I&O Intake and Output 08/04/18 07:00 Intake Total 4071 ml Output Total 1467 ml Balance 2604 ml Intake IV Total 3471 ml Blood Product IV Normal Saline Flush 600 ml Output Urine Total 1467 ml PATIENT HAS A WOOD: Yes General: Cooperative, No acute distress Heart: Regular rate Abdomen: Normal bowel sounds, Soft, No tenderness Labs Laboratory Tests Test 08/02/18 12:55 08/03/18 01:00 08/03/18 04:00 08/03/18 12:15 White Blood Count 5.8 x10^3/uL (4.0-11.0) 9.3 x10^3/uL (4.0-11.0) 9.0 x10^3/uL (4.0-11.0) 7.1 x10^3/uL (4.0-11.0) Red Blood Count 3.37 x10^6/uL (3.50-5.40) 3.87 x10^6/uL (3.50-5.40) 3.72 x10^6/uL (3.50-5.40) 3.40 x10^6/uL (3.50-5.40) Hemoglobin 7.8 g/dL (12.0-15.5) 10.2 g/dL (12.0-15.5) 9.9 g/dL (12.0-15.5) 8.9 g/dL (12.0-15.5) Hematocrit 24.6 % (36.0-47.0) 29.6 % (36.0-47.0) 28.9 % (36.0-47.0) 26.8 % (36.0-47.0) Mean Corpuscular Volume 73 fL (79-100) 77 fL (79-100) 78 fL (79-100) 79 fL ( 79-100) Mean Corpuscular Hemoglobin 23 pg (25-35) 26 pg (25-35) 27 pg (25-35) 26 pg ( 25-35) Mean Corpuscular Hemoglobin Concent 32 g/dL (31-37) 34 g/dL (31-37) 34 g/dL (31-37) 33 g/dL (31-37) Red Cell Distribution Width 16.6 % (11.5-14.5) 19.7 % (11.5-14.5) 19.1 % (11.5-14.5) 19.2 % (11.5-14.5) Platelet Count 174 x10^3/uL (140-400) 155 x10^3/uL (140-400) 144 x10^3/uL (140-400) 125 x10^3/uL (140-400) Neutrophils (%) (Auto) 84 % (31-73) Lymphocytes (%) (Auto) 11 % (24-48) Monocytes (%) (Auto) 5 % (0-9) Eosinophils (%) (Auto) 0 % (0-3) Basophils (%) (Auto) 0 % (0-3) Neutrophils # (Auto) 7.5 x10^3uL (1.8-7.7) Lymphocytes # (Auto) 1.0 x10^3/uL (1.0-4.8) Monocytes # (Auto) 0.4 x10^3/uL (0.0-1.1) Eosinophils # (Auto) 0.0 x10^3/uL (0.0-0.7) Basophils # (Auto) 0.0 x10^3/uL (0.0-0.2) Sodium Level 147 mmol/L (136-145) Potassium Level 3.5 mmol/L (3.5-5.1) Chloride Level 112 mmol/L (98-107) Carbon Dioxide Level 24 mmol/L (21-32) Anion Gap 11 (6-14) Blood Urea Nitrogen 25 mg/dL (7-20) Creatinine 0.9 mg/dL (0.6-1.0) Estimated GFR (Cockcroft-Gault) 73.7 Glucose Level 134 mg/dL (70-99) Calcium Level 7.9 mg/dL (8.5-10.1) Thyroid Stimulating Hormone (TSH) 0.648 uIU/mL (0.358-3.74) Test 08/03/18 17:45 08/03/18 18:30 08/03/18 19:00 08/03/18 21:00 White Blood Count 5.3 x10^3/uL (4.0-11.0) 5.7 x10^3/uL (4.0-11.0) 7.7 x10^3/uL (4.0-11.0) Red Blood Count 2.06 x10^6/uL (3.50-5.40) 2.11 x10^6/uL (3.50-5.40) 2.83 x10^6/uL (3.50-5.40) Hemoglobin 5.5 g/dL (12.0-15.5) 5.6 g/dL (12.0-15.5) 8.1 g/dL (12.0-15.5) Hematocrit 16.0 % (36.0-47.0) 16.8 % (36.0-47.0) 23.2 % (36.0-47.0) Mean Corpuscular Volume 78 fL (79-100) 80 fL (79-100) 82 fL (79-100) Mean Corpuscular Hemoglobin 27 pg (25-35) 27 pg (25-35) 29 pg (25-35) Mean Corpuscular Hemoglobin Concent 34 g/dL (31-37) 33 g/dL (31-37) 35 g/dL (31-37) Red Cell Distribution Width 19.3 % (11.5-14.5) 19.3 % (11.5-14.5) 18.4 % (11.5-14.5) Platelet Count 112 x10^3/uL (140-400) 77 x10^3/uL (140-400) 154 x10^3/uL (140-400) Neutrophils (%) (Auto) 74 % (31-73) 73 % (31-73) Lymphocytes (%) (Auto) 19 % (24-48) 20 % (24-48) Monocytes (%) (Auto) 6 % (0-9) 7 % (0-9) Eosinophils (%) (Auto) 0 % (0-3) 1 % (0-3) Basophils (%) (Auto) 0 % (0-3) 0 % (0-3) Neutrophils # (Auto) 3.9 x10^3uL (1.8-7.7) 5.6 x10^3uL (1.8-7.7) Lymphocytes # (Auto) 1.0 x10^3/uL (1.0-4.8) 1.5 x10^3/uL (1.0-4.8) Monocytes # (Auto) 0.3 x10^3/uL (0.0-1.1) 0.5 x10^3/uL (0.0-1.1) Eosinophils # (Auto) 0.0 x10^3/uL (0.0-0.7) 0.0 x10^3/uL (0.0-0.7) Basophils # (Auto) 0.0 x10^3/uL (0.0-0.2) 0.0 x10^3/uL (0.0-0.2) Prothrombin Time 17.9 SEC (11.7-14.0) Prothromb Time International Ratio 1.5 (0.8-1.1) Test 08/04/18 05:00 White Blood Count 7.2 x10^3/uL (4.0-11.0) Red Blood Count 2.68 x10^6/uL (3.50-5.40) Hemoglobin 7.6 g/dL (12.0-15.5) Hematocrit 21.6 % (36.0-47.0) Mean Corpuscular Volume 81 fL (79-100) Mean Corpuscular Hemoglobin 28 pg (25-35) Mean Corpuscular Hemoglobin Concent 35 g/dL (31-37) Red Cell Distribution Width 18.3 % (11.5-14.5) Platelet Count 152 x10^3/uL (140-400) Neutrophils (%) (Auto) 74 % (31-73) Lymphocytes (%) (Auto) 19 % (24-48) Monocytes (%) (Auto) 7 % (0-9) Eosinophils (%) (Auto) 1 % (0-3) Basophils (%) (Auto) 0 % (0-3) Neutrophils # (Auto) 5.3 x10^3uL (1.8-7.7) Lymphocytes # (Auto) 1.3 x10^3/uL (1.0-4.8) Monocytes # (Auto) 0.5 x10^3/uL (0.0-1.1) Eosinophils # (Auto) 0.0 x10^3/uL (0.0-0.7) Basophils # (Auto) 0.0 x10^3/uL (0.0-0.2) Sodium Level 150 mmol/L (136-145) Potassium Level 3.1 mmol/L (3.5-5.1) Chloride Level 118 mmol/L (98-107) Carbon Dioxide Level 23 mmol/L (21-32) Anion Gap 9 (6-14) Blood Urea Nitrogen 9 mg/dL (7-20) Creatinine 0.7 mg/dL (0.6-1.0) Estimated GFR (Cockcroft-Gault) 98.4 Glucose Level 152 mg/dL (70-99) Calcium Level 7.3 mg/dL (8.5-10.1) Laboratory Tests Test 08/03/18 12:15 08/03/18 17:45 08/03/18 18:30 08/03/18 19:00 White Blood Count 7.1 x10^3/uL (4.0-11.0) 5.3 x10^3/uL (4.0-11.0) 5.7 x10^3/uL (4.0-11.0) Red Blood Count 3.40 x10^6/uL (3.50-5.40) 2.06 x10^6/uL (3.50-5.40) 2.11 x10^6/uL (3.50-5.40) Hemoglobin 8.9 g/dL (12.0-15.5) 5.5 g/dL (12.0-15.5) 5.6 g/dL (12.0-15.5) Hematocrit 26.8 % (36.0-47.0) 16.0 % (36.0-47.0) 16.8 % (36.0-47.0) Mean Corpuscular Volume 79 fL (79-100) 78 fL (79-100) 80 fL (79-100) Mean Corpuscular Hemoglobin 26 pg (25-35) 27 pg (25-35) 27 pg (25-35) Mean Corpuscular Hemoglobin Concent 33 g/dL (31-37) 34 g/dL (31-37) 33 g/dL (31-37) Red Cell Distribution Width 19.2 % (11.5-14.5) 19.3 % (11.5-14.5) 19.3 % (11.5-14.5) Platelet Count 125 x10^3/uL (140-400) 112 x10^3/uL (140-400) 77 x10^3/uL (140-400) Neutrophils (%) (Auto) 74 % (31-73) Lymphocytes (%) (Auto) 19 % (24-48) Monocytes (%) (Auto) 6 % (0-9) Eosinophils (%) (Auto) 0 % (0-3) Basophils (%) (Auto) 0 % (0-3) Neutrophils # (Auto) 3.9 x10^3uL (1.8-7.7) Lymphocytes # (Auto) 1.0 x10^3/uL (1.0-4.8) Monocytes # (Auto) 0.3 x10^3/uL (0.0-1.1) Eosinophils # (Auto) 0.0 x10^3/uL (0.0-0.7) Basophils # (Auto) 0.0 x10^3/uL (0.0-0.2) Prothrombin Time 17.9 SEC (11.7-14.0) Prothromb Time International Ratio 1.5 (0.8-1.1) Test 08/03/18 21:00 08/04/18 05:00 White Blood Count 7.7 x10^3/uL (4.0-11.0) 7.2 x10^3/uL (4.0-11.0) Red Blood Count 2.83 x10^6/uL (3.50-5.40) 2.68 x10^6/uL (3.50-5.40) Hemoglobin 8.1 g/dL (12.0-15.5) 7.6 g/dL (12.0-15.5) Hematocrit 23.2 % (36.0-47.0) 21.6 % (36.0-47.0) Mean Corpuscular Volume 82 fL (79-100) 81 fL (79-100) Mean Corpuscular Hemoglobin 29 pg (25-35) 28 pg (25-35) Mean Corpuscular Hemoglobin Concent 35 g/dL (31-37) 35 g/dL (31-37) Red Cell Distribution Width 18.4 % (11.5-14.5) 18.3 % (11.5-14.5) Platelet Count 154 x10^3/uL (140-400) 152 x10^3/uL (140-400) Neutrophils (%) (Auto) 73 % (31-73) 74 % (31-73) Lymphocytes (%) (Auto) 20 % (24-48) 19 % (24-48) Monocytes (%) (Auto) 7 % (0-9) 7 % (0-9) Eosinophils (%) (Auto) 1 % (0-3) 1 % (0-3) Basophils (%) (Auto) 0 % (0-3) 0 % (0-3) Neutrophils # (Auto) 5.6 x10^3uL (1.8-7.7) 5.3 x10^3uL (1.8-7.7) Lymphocytes # (Auto) 1.5 x10^3/uL (1.0-4.8) 1.3 x10^3/uL (1.0-4.8) Monocytes # (Auto) 0.5 x10^3/uL (0.0-1.1) 0.5 x10^3/uL (0.0-1.1) Eosinophils # (Auto) 0.0 x10^3/uL (0.0-0.7) 0.0 x10^3/uL (0.0-0.7) Basophils # (Auto) 0.0 x10^3/uL (0.0-0.2) 0.0 x10^3/uL (0.0-0.2) Sodium Level 150 mmol/L (136-145) Potassium Level 3.1 mmol/L (3.5-5.1) Chloride Level 118 mmol/L (98-107) Carbon Dioxide Level 23 mmol/L (21-32) Anion Gap 9 (6-14) Blood Urea Nitrogen 9 mg/dL (7-20) Creatinine 0.7 mg/dL (0.6-1.0) Estimated GFR (Cockcroft-Gault) 98.4 Glucose Level 152 mg/dL (70-99) Calcium Level 7.3 mg/dL (8.5-10.1) Problem List Problems Medical Problems: (1) GI bleed Status: Acute Assessment/Plan GI bleed diverticular nature stable overnight hemoglobin 7.1 platelet count within normal range Continue to monitor for bleeding no surgical plans at this time XI MILLER MD Aug 04, 2018 08:56
[2018-08-04] MEDS: PANTOPRAZOLE IV PUSH 40 MG VIAL. IVP SCH (09:56)
--- NOTE | 2018-08-04 11:18 | PDOC ---
IM PROGRESS NOTES- Subjective Subjective Patient is very confused and trying to get out of bed. She is hallucinating and unable to provide any information. Unable to do any systems review. Condition discussed with the 2 family members at bedside. Objective Vitals Vital Signs Date Time Temp Pulse Resp B/P (MAP) Pulse Ox O2 Delivery O2 Flow Rate FiO2 08/04/18 10:00 98 16 117/80 (92) 100 Room Air 08/04/18 08:00 98.6 98.6 08/04/18 04:00 10.0 Input & Output Intake and Output 08/04/18 07:00 Intake Total 4071 ml Output Total 1542 ml Balance 2529 ml Intake IV Total 3471 ml Blood Product IV Normal Saline Flush 600 ml Output Urine Total 1542 ml Physical Exam Physical Exam General appearance - alert, ill appearing and confused Mental Status -less netting and trying to get out of bed. Chest - clear to auscultation, no wheezes, rales or rhonchi, symmetric air entry Heart - S1 and S2 normal Abdomen - soft, nontender, nondistended, no masses or organomegaly Neurological -very confused and hallucinating. Musculoskeletal - no muscular tenderness noted Extremities - no pedal edema Skin - warm and dry Labs Laboratory Tests Test 08/02/18 12:55 08/03/18 01:00 08/03/18 04:00 08/03/18 12:15 White Blood Count 5.8 x10^3/uL (4.0-11.0) 9.3 x10^3/uL (4.0-11.0) 9.0 x10^3/uL (4.0-11.0) 7.1 x10^3/uL (4.0-11.0) Red Blood Count 3.37 x10^6/uL (3.50-5.40) 3.87 x10^6/uL (3.50-5.40) 3.72 x10^6/uL (3.50-5.40) 3.40 x10^6/uL (3.50-5.40) Hemoglobin 7.8 g/dL (12.0-15.5) 10.2 g/dL (12.0-15.5) 9.9 g/dL (12.0-15.5) 8.9 g/dL (12.0-15.5) Hematocrit 24.6 % (36.0-47.0) 29.6 % (36.0-47.0) 28.9 % (36.0-47.0) 26.8 % (36.0-47.0) Mean Corpuscular Volume 73 fL (79-100) 77 fL (79-100) 78 fL (79-100) 79 fL ( 79-100) Mean Corpuscular Hemoglobin 23 pg (25-35) 26 pg (25-35) 27 pg (25-35) 26 pg ( 25-35) Mean Corpuscular Hemoglobin Concent 32 g/dL (31-37) 34 g/dL (31-37) 34 g/dL (31-37) 33 g/dL (31-37) Red Cell Distribution Width 16.6 % (11.5-14.5) 19.7 % (11.5-14.5) 19.1 % (11.5-14.5) 19.2 % (11.5-14.5) Platelet Count 174 x10^3/uL (140-400) 155 x10^3/uL (140-400) 144 x10^3/uL (140-400) 125 x10^3/uL (140-400) Neutrophils (%) (Auto) 84 % (31-73) Lymphocytes (%) (Auto) 11 % (24-48) Monocytes (%) (Auto) 5 % (0-9) Eosinophils (%) (Auto) 0 % (0-3) Basophils (%) (Auto) 0 % (0-3) Neutrophils # (Auto) 7.5 x10^3uL (1.8-7.7) Lymphocytes # (Auto) 1.0 x10^3/uL (1.0-4.8) Monocytes # (Auto) 0.4 x10^3/uL (0.0-1.1) Eosinophils # (Auto) 0.0 x10^3/uL (0.0-0.7) Basophils # (Auto) 0.0 x10^3/uL (0.0-0.2) Sodium Level 147 mmol/L (136-145) Potassium Level 3.5 mmol/L (3.5-5.1) Chloride Level 112 mmol/L (98-107) Carbon Dioxide Level 24 mmol/L (21-32) Anion Gap 11 (6-14) Blood Urea Nitrogen 25 mg/dL (7-20) Creatinine 0.9 mg/dL (0.6-1.0) Estimated GFR (Cockcroft-Gault) 73.7 Glucose Level 134 mg/dL (70-99) Calcium Level 7.9 mg/dL (8.5-10.1) Thyroid Stimulating Hormone (TSH) 0.648 uIU/mL (0.358-3.74) Test 08/03/18 17:45 08/03/18 18:30 08/03/18 19:00 08/03/18 21:00 White Blood Count 5.3 x10^3/uL (4.0-11.0) 5.7 x10^3/uL (4.0-11.0) 7.7 x10^3/uL (4.0-11.0) Red Blood Count 2.06 x10^6/uL (3.50-5.40) 2.11 x10^6/uL (3.50-5.40) 2.83 x10^6/uL (3.50-5.40) Hemoglobin 5.5 g/dL (12.0-15.5) 5.6 g/dL (12.0-15.5) 8.1 g/dL (12.0-15.5) Hematocrit 16.0 % (36.0-47.0) 16.8 % (36.0-47.0) 23.2 % (36.0-47.0) Mean Corpuscular Volume 78 fL (79-100) 80 fL (79-100) 82 fL (79-100) Mean Corpuscular Hemoglobin 27 pg (25-35) 27 pg (25-35) 29 pg (25-35) Mean Corpuscular Hemoglobin Concent 34 g/dL (31-37) 33 g/dL (31-37) 35 g/dL (31-37) Red Cell Distribution Width 19.3 % (11.5-14.5) 19.3 % (11.5-14.5) 18.4 % (11.5-14.5) Platelet Count 112 x10^3/uL (140-400) 77 x10^3/uL (140-400) 154 x10^3/uL (140-400) Neutrophils (%) (Auto) 74 % (31-73) 73 % (31-73) Lymphocytes (%) (Auto) 19 % (24-48) 20 % (24-48) Monocytes (%) (Auto) 6 % (0-9) 7 % (0-9) Eosinophils (%) (Auto) 0 % (0-3) 1 % (0-3) Basophils (%) (Auto) 0 % (0-3) 0 % (0-3) Neutrophils # (Auto) 3.9 x10^3uL (1.8-7.7) 5.6 x10^3uL (1.8-7.7) Lymphocytes # (Auto) 1.0 x10^3/uL (1.0-4.8) 1.5 x10^3/uL (1.0-4.8) Monocytes # (Auto) 0.3 x10^3/uL (0.0-1.1) 0.5 x10^3/uL (0.0-1.1) Eosinophils # (Auto) 0.0 x10^3/uL (0.0-0.7) 0.0 x10^3/uL (0.0-0.7) Basophils # (Auto) 0.0 x10^3/uL (0.0-0.2) 0.0 x10^3/uL (0.0-0.2) Prothrombin Time 17.9 SEC (11.7-14.0) Prothromb Time International Ratio 1.5 (0.8-1.1) Test 08/04/18 05:00 White Blood Count 7.2 x10^3/uL (4.0-11.0) Red Blood Count 2.68 x10^6/uL (3.50-5.40) Hemoglobin 7.6 g/dL (12.0-15.5) Hematocrit 21.6 % (36.0-47.0) Mean Corpuscular Volume 81 fL (79-100) Mean Corpuscular Hemoglobin 28 pg (25-35) Mean Corpuscular Hemoglobin Concent 35 g/dL (31-37) Red Cell Distribution Width 18.3 % (11.5-14.5) Platelet Count 152 x10^3/uL (140-400) Neutrophils (%) (Auto) 74 % (31-73) Lymphocytes (%) (Auto) 19 % (24-48) Monocytes (%) (Auto) 7 % (0-9) Eosinophils (%) (Auto) 1 % (0-3) Basophils (%) (Auto) 0 % (0-3) Neutrophils # (Auto) 5.3 x10^3uL (1.8-7.7) Lymphocytes # (Auto) 1.3 x10^3/uL (1.0-4.8) Monocytes # (Auto) 0.5 x10^3/uL (0.0-1.1) Eosinophils # (Auto) 0.0 x10^3/uL (0.0-0.7) Basophils # (Auto) 0.0 x10^3/uL (0.0-0.2) Sodium Level 150 mmol/L (136-145) Potassium Level 3.1 mmol/L (3.5-5.1) Chloride Level 118 mmol/L (98-107) Carbon Dioxide Level 23 mmol/L (21-32) Anion Gap 9 (6-14) Blood Urea Nitrogen 9 mg/dL (7-20) Creatinine 0.7 mg/dL (0.6-1.0) Estimated GFR (Cockcroft-Gault) 98.4 Glucose Level 152 mg/dL (70-99) Calcium Level 7.3 mg/dL (8.5-10.1) Laboratory Tests Test 08/03/18 12:15 08/03/18 17:45 08/03/18 18:30 08/03/18 19:00 White Blood Count 7.1 x10^3/uL (4.0-11.0) 5.3 x10^3/uL (4.0-11.0) 5.7 x10^3/uL (4.0-11.0) Red Blood Count 3.40 x10^6/uL (3.50-5.40) 2.06 x10^6/uL (3.50-5.40) 2.11 x10^6/uL (3.50-5.40) Hemoglobin 8.9 g/dL (12.0-15.5) 5.5 g/dL (12.0-15.5) 5.6 g/dL (12.0-15.5) Hematocrit 26.8 % (36.0-47.0) 16.0 % (36.0-47.0) 16.8 % (36.0-47.0) Mean Corpuscular Volume 79 fL (79-100) 78 fL (79-100) 80 fL (79-100) Mean Corpuscular Hemoglobin 26 pg (25-35) 27 pg (25-35) 27 pg (25-35) Mean Corpuscular Hemoglobin Concent 33 g/dL (31-37) 34 g/dL (31-37) 33 g/dL (31-37) Red Cell Distribution Width 19.2 % (11.5-14.5) 19.3 % (11.5-14.5) 19.3 % (11.5-14.5) Platelet Count 125 x10^3/uL (140-400) 112 x10^3/uL (140-400) 77 x10^3/uL (140-400) Neutrophils (%) (Auto) 74 % (31-73) Lymphocytes (%) (Auto) 19 % (24-48) Monocytes (%) (Auto) 6 % (0-9) Eosinophils (%) (Auto) 0 % (0-3) Basophils (%) (Auto) 0 % (0-3) Neutrophils # (Auto) 3.9 x10^3uL (1.8-7.7) Lymphocytes # (Auto) 1.0 x10^3/uL (1.0-4.8) Monocytes # (Auto) 0.3 x10^3/uL (0.0-1.1) Eosinophils # (Auto) 0.0 x10^3/uL (0.0-0.7) Basophils # (Auto) 0.0 x10^3/uL (0.0-0.2) Prothrombin Time 17.9 SEC (11.7-14.0) Prothromb Time International Ratio 1.5 (0.8-1.1) Test 08/03/18 21:00 08/04/18 05:00 White Blood Count 7.7 x10^3/uL (4.0-11.0) 7.2 x10^3/uL (4.0-11.0) Red Blood Count 2.83 x10^6/uL (3.50-5.40) 2.68 x10^6/uL (3.50-5.40) Hemoglobin 8.1 g/dL (12.0-15.5) 7.6 g/dL (12.0-15.5) Hematocrit 23.2 % (36.0-47.0) 21.6 % (36.0-47.0) Mean Corpuscular Volume 82 fL (79-100) 81 fL (79-100) Mean Corpuscular Hemoglobin 29 pg (25-35) 28 pg (25-35) Mean Corpuscular Hemoglobin Concent 35 g/dL (31-37) 35 g/dL (31-37) Red Cell Distribution Width 18.4 % (11.5-14.5) 18.3 % (11.5-14.5) Platelet Count 154 x10^3/uL (140-400) 152 x10^3/uL (140-400) Neutrophils (%) (Auto) 73 % (31-73) 74 % (31-73) Lymphocytes (%) (Auto) 20 % (24-48) 19 % (24-48) Monocytes (%) (Auto) 7 % (0-9) 7 % (0-9) Eosinophils (%) (Auto) 1 % (0-3) 1 % (0-3) Basophils (%) (Auto) 0 % (0-3) 0 % (0-3) Neutrophils # (Auto) 5.6 x10^3uL (1.8-7.7) 5.3 x10^3uL (1.8-7.7) Lymphocytes # (Auto) 1.5 x10^3/uL (1.0-4.8) 1.3 x10^3/uL (1.0-4.8) Monocytes # (Auto) 0.5 x10^3/uL (0.0-1.1) 0.5 x10^3/uL (0.0-1.1) Eosinophils # (Auto) 0.0 x10^3/uL (0.0-0.7) 0.0 x10^3/uL (0.0-0.7) Basophils # (Auto) 0.0 x10^3/uL (0.0-0.2) 0.0 x10^3/uL (0.0-0.2) Sodium Level 150 mmol/L (136-145) Potassium Level 3.1 mmol/L (3.5-5.1) Chloride Level 118 mmol/L (98-107) Carbon Dioxide Level 23 mmol/L (21-32) Anion Gap 9 (6-14) Blood Urea Nitrogen 9 mg/dL (7-20) Creatinine 0.7 mg/dL (0.6-1.0) Estimated GFR (Cockcroft-Gault) 98.4 Glucose Level 152 mg/dL (70-99) Calcium Level 7.3 mg/dL (8.5-10.1) Meds Current Medications Ephedrine Sulfate (ePHEDrine PF IN SALINE SYRINGE) 50 mg STK-MED ONCE IV ; Start 08/03/18 at 11:37; Stop 08/03/18 at 11:38; Status DC Etomidate (Amidate) 20 mg STK-MED ONCE IV ; Start 08/03/18 at 14:11; Stop at 14:12; Status DC Famotidine (Pepcid Vial) 20 mg STK-MED ONCE .ROUTE ; Start 08/03/18 at 14:10; Stop 08/03/18 at 14:11; Status DC Fentanyl Citrate (Fentanyl 2ml Vial) 100 mcg STK-MED ONCE .ROUTE ; Start at 14:11; Stop 08/03/18 at 14:12; Status DC Heparin Sodium/ Sodium Chloride 1,000 ml @ As Directed STK-MED ONCE .ROUTE ; Start 08/03/18 at 14:20; Stop 08/03/18 at 14:21; Status DC Info (CONTRAST GIVEN -- Rx MONITORING) 1 each PRN DAILY PRN MC SEE COMMENTS; Start 08/03/18 at 12:30; Stop 08/05/18 at 12:29 Iohexol (Omnipaque 240 Mg/ml) 50 ml STK-MED ONCE .ROUTE ; Start 08/03/18 at 14: 20; Stop 08/03/18 at 14:21; Status DC Iohexol (Omnipaque 300 Mg/ml) 90 ml 1X ONCE IV Last administered on at 12:41; Start 08/03/18 at 13:00; Stop 08/03/18 at 13:01; Status DC Iohexol (Omnipaque 300 Mg/ml) 100 ml 1X ONCE IART Last administered on at 16:00; Start 08/03/18 at 16:00; Stop 08/03/18 at 16:01; Status DC Iohexol (Omnipaque 300 Mg/ml) 100 ml STK-MED ONCE .ROUTE ; Start 08/03/18 at 12 :28; Stop 08/03/18 at 12:29; Status DC Iohexol (Omnipaque 300 Mg/ml) 100 ml STK-MED ONCE .ROUTE ; Start 08/03/18 at 14 :20; Stop 08/03/18 at 14:21; Status DC Ketamine HCl (Ketamine) 50 mg STK-MED ONCE .ROUTE ; Start 08/03/18 at 14:10; Stop 08/03/18 at 14:11; Status DC Lidocaine/Sodium Bicarbonate (Buffered Lidocaine 1%) 3 ml STK-MED ONCE .ROUTE ; Start 08/03/18 at 14:20; Stop 08/03/18 at 14:21; Status DC Lidocaine/Sodium Bicarbonate (Buffered Lidocaine 1%) 4 ml 1X ONCE IJ Last administered on 08/03/18at 16:12; Start 08/03/18 at 16:15; Stop 08/03/18 at 16 :20; Status DC Olanzapine (ZyPREXA ZYDIS) 5 mg PRN BID PRN PO ANXIETY / AGITATION; Start at 10:45 Ondansetron HCl (Zofran) 4 mg STK-MED ONCE .ROUTE ; Start 08/03/18 at 14:10; Stop 08/03/18 at 14:11; Status DC Potassium Chloride 40 meq/ Dextrose/Sodium Chloride 1,020 ml @ 150 mls/hr Q6H48M IV ; Start 08/04/18 at 11:15 Sodium Chloride 1,000 ml @ 1,000 mls/hr 1X ONCE IV Last administered on 08/03at 17:45; Start 08/03/18 at 17:45; Stop 08/03/18 at 18:44; Status DC Succinylcholine Chloride (Anectine) 200 mg STK-MED ONCE .ROUTE ; Start at 14:10; Stop 08/03/18 at 14:11; Status DC Assessment Assessment Problems Medical Problems: (1) GI bleed Status: Acute FINAL IMPRESSION: 1. Acute Lower gastrointestinal bleed. 2. Dementia. 3. Anemia due to GI bleed. 4. Neuropathy. 5. General debility. 6. History of previous surgeries including knee replacements. 7. The patient is on aspirin. 8. Dementia with agitation and confusion, encephalopathy 9. Hypokalemia 10. Hypernatremia PLAN: 2 u prbc last night ,hb 10 today colonoscopy today. surgical consult as back up. CTA to r/o active bleed. monitor Hb q 6 hrs iv hydration. keep in ICU spoke with family iv protonix At this time was to hold aspirin. Medications n.p.o., IV fluids. The patient also had episode of hypotension, given fluid challenge 1 liter, was moved to ICU and GI is consulted. Monitor hemoglobin q. 6 hours. Transfuse 2 units and further recommendations to follow. I spoke with family members. Hold off on anticoagulation. SCDs for DVT prevention. Also, IV Protonix and drip. Acute GI bleeding- IR NOTE S/P visceral angiography for GI bleed. No active bleeding was identified. 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 Reduced but persistent forward flow. By CTA, SMA was widely patent. Proximal LINDA occlusion is almost always clinically insignificant, and the artery is commonly coiled/covered during endovascular interventions. Unfortunately, this may limit the ability to re select the LINDA and attempt a repeat intervention. If bleeding fails to resolve repeat endoscopic or surgical intervention may be needed. Continue to monitor for GI bleeding. Hemoglobin and hematocrit every 6 hours. Hypokalemia-potassium is 3.1. Increase potassium chloride to 40 meq liter of IV fluids. Hypernatremia- and is nothing by mouth. IV D5 normal saline with 40 of KCl in each liter to run at 150 mL/h Acute metabolic encephalopathy- likely also has underlying dementia as per information from the family members. Patient has high IV Haldol ordered but I will also use Zyprexa sublingually if available. Continue monitoring in intensive care unit. Plan Plan For more details regarding further plans, please refer to the orders. Nutrition Consultation Dietary Evaluation: Recommendations by RD: Increase Calorie Intake Comments: REC advance diet as able pending results of colonoscopy If unable to advance diet within 24-48 hrs, recommend PPN for short-term nutrition needs Expected Outcomes/Goals: diet advancement Interpretation of weight loss: >7.5% in 3 months Malnutrition Findings: Food and Nutrition Intake (Mod: <75% est energy req 7days Weight Status: Appropriate LIZETH AMBROCIO MD Aug 04, 2018 11:18
[2018-08-04] MEDS: POTASSIUM CHLORIDE 40 MEQ in IV DEXTROSE 5% - 0.9 % NACL 1,000 ML IV SCH ×2 (12:50→18:03)
[2018-08-04 13:16] LABS: HEMOGLOBIN 7.1 g/dL (12.0-15.5)
[2018-08-04] MEDS: HALOPERIDOL LACTATE 5 MG/ML VIAL. IVP PRN (13:17)
[2018-08-04 13:19] LABS: HEMATOCRIT 20.2 % (36.0-47.0)
[2018-08-04] MEDS: POLYETHYLENE GLYCOL 3350 17 GM PACKET. PO SCH (14:45)
--- NOTE | 2018-08-04 14:48 | PDOC ---
GI PROGRESS NOTES Date Date/Time DATE: 08/04/18 TIME: 14:43 Subjective Subjective confused - but no further active rectal bleeding reported Hgb stable overnight Objective Vitals Vital Signs Date Time Temp Pulse Resp B/P (MAP) Pulse Ox O2 Delivery O2 Flow Rate FiO2 08/04/18 13:34 87 22 119/70 (86) 97 08/04/18 12:00 97.9 88 23 119/70 (86) 97.9 08/04/18 11:12 74 17 105/74 (84) 96 08/04/18 10:00 98 16 117/80 (92) 100 Room Air 08/04/18 09:00 84 13 139/78 (98) 100 Room Air 08/04/18 08:00 98.6 88 14 139/72 (94) 100 Room Air 98.6 08/04/18 07:00 72 12 123/77 (92) 100 Room Air 08/04/18 06:00 87 12 117/71 (86) 100 Room Air 08/04/18 05:00 86 19 110/70 (83) 100 Room Air 08/04/18 04:00 98.6 82 18 110/68 (82) 100 Room Air 98.6 08/04/18 04:00 Room Air 10.0 08/04/18 03:00 95 18 117/71 (86) 97 Room Air 08/04/18 02:00 86 15 119/69 (86) 100 Room Air 08/04/18 01:00 98.1 88 17 116/66 (83) 93 Room Air 98.1 08/04/18 00:01 90 14 113/66 (82) 99 Room Air 08/03/18 23:59 Room Air 10.0 08/03/18 23:00 94 20 92/52 (65) 98 Room Air 08/03/18 22:00 101 20 136/74 (94) 100 Room Air 08/03/18 21:00 92 31 118/64 (82) 100 Room Air 08/03/18 20:46 97.7 81 21 114/79 97.7 08/03/18 20:31 97.6 90 14 117/73 97.6 08/03/18 20:15 97.5 82 12 111/49 97.5 08/03/18 20:00 97.5 92 30 114/61 (78) 97 Room Air 97.5 08/03/18 20:00 Room Air 10.0 08/03/18 19:31 97.5 75 18 115/59 97.5 08/03/18 18:33 97.5 89 16 93/49 97.5 08/03/18 18:30 88 12 83/55 (64) 95 Room Air 08/03/18 18:00 74 15 103/51 (68) 93 Room Air 08/03/18 17:45 67 16 93/45 (61) 96 Room Air 08/03/18 17:30 68 18 102/72 (82) 100 Room Air 08/03/18 17:15 97.5 74 16 83/57 (66) 96 Room Air 97.5 08/03/18 17:15 Room Air 08/03/18 16:46 96 20 100/63 94 Room Air 08/03/18 16:31 94 20 71/60 100 Simple Mask 10 08/03/18 16:16 Mask 10 08/03/18 16:16 97.5 110 20 139/91 94 Simple Mask 10 97.5 Labs Labs Laboratory Tests Test 08/03/18 17:45 18 18:30 18 19:00 08/03/18 21:00 White Blood Count 5.3 x10^3/uL (4.0-11.0) 5.7 x10^3/uL (4.0-11.0) 7.7 x10^3/uL (4.0-11.0) Red Blood Count 2.06 x10^6/uL (3.50-5.40) 2.11 x10^6/uL (3.50-5.40) 2.83 x10^6/uL (3.50-5.40) Hemoglobin 5.5 g/dL (12.0-15.5) 5.6 g/dL (12.0-15.5) 8.1 g/dL (12.0-15.5) Hematocrit 16.0 % (36.0-47.0) 16.8 % (36.0-47.0) 23.2 % (36.0-47.0) Mean Corpuscular Volume 78 fL (79-100) 80 fL (79-100) 82 fL (79-100) Mean Corpuscular Hemoglobin 27 pg (25-35) 27 pg (25-35) 29 pg (25-35) Mean Corpuscular Hemoglobin Concent 34 g/dL (31-37) 33 g/dL (31-37) 35 g/dL (31-37) Red Cell Distribution Width 19.3 % (11.5-14.5) 19.3 % (11.5-14.5) 18.4 % (11.5-14.5) Platelet Count 112 x10^3/uL (140-400) 77 x10^3/uL (140-400) 154 x10^3/uL (140-400) Neutrophils (%) (Auto) 74 % (31-73) 73 % (31-73) Lymphocytes (%) (Auto) 19 % (24-48) 20 % (24-48) Monocytes (%) (Auto) 6 % (0-9) 7 % (0-9) Eosinophils (%) (Auto) 0 % (0-3) 1 % (0-3) Basophils (%) (Auto) 0 % (0-3) 0 % (0-3) Neutrophils # (Auto) 3.9 x10^3uL (1.8-7.7) 5.6 x10^3uL (1.8-7.7) Lymphocytes # (Auto) 1.0 x10^3/uL (1.0-4.8) 1.5 x10^3/uL (1.0-4.8) Monocytes # (Auto) 0.3 x10^3/uL (0.0-1.1) 0.5 x10^3/uL (0.0-1.1) Eosinophils # (Auto) 0.0 x10^3/uL (0.0-0.7) 0.0 x10^3/uL (0.0-0.7) Basophils # (Auto) 0.0 x10^3/uL (0.0-0.2) 0.0 x10^3/uL (0.0-0.2) Prothrombin Time 17.9 SEC (11.7-14.0) Prothromb Time International Ratio 1.5 (0.8-1.1) Test 08/04/18 05:00 08/04/18 12:50 White Blood Count 7.2 x10^3/uL (4.0-11.0) Red Blood Count 2.68 x10^6/uL (3.50-5.40) Hemoglobin 7.6 g/dL (12.0-15.5) 7.1 g/dL (12.0-15.5) Hematocrit 21.6 % (36.0-47.0) 20.2 % (36.0-47.0) Mean Corpuscular Volume 81 fL (79-100) Mean Corpuscular Hemoglobin 28 pg (25-35) Mean Corpuscular Hemoglobin Concent 35 g/dL (31-37) Red Cell Distribution Width 18.3 % (11.5-14.5) Platelet Count 152 x10^3/uL (140-400) Neutrophils (%) (Auto) 74 % (31-73) Lymphocytes (%) (Auto) 19 % (24-48) Monocytes (%) (Auto) 7 % (0-9) Eosinophils (%) (Auto) 1 % (0-3) Basophils (%) (Auto) 0 % (0-3) Neutrophils # (Auto) 5.3 x10^3uL (1.8-7.7) Lymphocytes # (Auto) 1.3 x10^3/uL (1.0-4.8) Monocytes # (Auto) 0.5 x10^3/uL (0.0-1.1) Eosinophils # (Auto) 0.0 x10^3/uL (0.0-0.7) Basophils # (Auto) 0.0 x10^3/uL (0.0-0.2) Sodium Level 150 mmol/L (136-145) Potassium Level 3.1 mmol/L (3.5-5.1) Chloride Level 118 mmol/L (98-107) Carbon Dioxide Level 23 mmol/L (21-32) Anion Gap 9 (6-14) Blood Urea Nitrogen 9 mg/dL (7-20) Creatinine 0.7 mg/dL (0.6-1.0) Estimated GFR (Cockcroft-Gault) 98.4 Glucose Level 152 mg/dL (70-99) Calcium Level 7.3 mg/dL (8.5-10.1) Physical Exam Physical Exam awake but confused chest- clear cor- RRR abd soft non tender good bowel sounds Assessment Assessment Acute and brisk rectal bleeding on and Monday- likely from diverticular origin- s/p colonoscopy, bleeding scan, CTA and angiography- appears to have resolved with later testing showing no further active bleeding yesterday Plan Plan Due to constipation will start miralax since bleeding appears improved or resolved - I will start CLD - advance slowly as tolerated YEMI PELAYO MD Aug 04, 2018 14:48
[2018-08-04 18:42] LABS: RED BLOOD COUNT 2.34 x10^6/uL (3.50-5.40); RED CELL DISTRIBUTION WIDTH 18.5 % (11.5-14.5); WHITE BLOOD COUNT 6.6 x10^3/uL (4.0-11.0)
[2018-08-04 18:51] LABS: HEMATOCRIT 18.8 % (36.0-47.0); HEMOGLOBIN 6.7 g/dL (12.0-15.5)
[2018-08-04] MEDS: ZOLPIDEM 5 MG TABLET. PO PRN (21:09)
[2018-08-05] VITALS (24 sets, daily range): BP systolic 98–158; BP diastolic 62–100
[2018-08-05] MEDS: POTASSIUM CHLORIDE 40 MEQ in IV DEXTROSE 5% - 0.9 % NACL 1,000 ML IV SCH ×3 (05:53→20:08)
[2018-08-05 06:18] LABS: BASO % 0 % (0-3); EOS # 0.1 x10^3/uL (0.0-0.7); EOS % 2 % (0-3); HEMATOCRIT 26.7 % (36.0-47.0); HEMOGLOBIN 9.2 g/dL (12.0-15.5); LYMPH # 0.9 x10^3/uL (1.0-4.8); LYMPH % 17 % (24-48); MEAN CORPUSCULAR HEMOGLOBIN 29 pg (25-35); MEAN CORPUSCULAR HGB CONC 35 g/dL (31-37); MEAN CORPUSCULAR VOLUME 85 fL (79-100); MONO # 0.4 x10^3/uL (0.0-1.1); MONO % 7 % (0-9); NEUT # 4.1 x10^3uL (1.8-7.7); NEUT % 74 % (31-73); PLATELET COUNT 123 x10^3/uL (140-400); RED BLOOD COUNT 3.16 x10^6/uL (3.50-5.40); RED CELL DISTRIBUTION WIDTH 17.9 % (11.5-14.5); WHITE BLOOD COUNT 5.6 x10^3/uL (4.0-11.0)
[2018-08-05 06:23] LABS: ALBUMIN 2.2 g/dL (3.4-5.0); CALCIUM 7.5 mg/dL (8.5-10.1); CREATININE 0.7 mg/dL (0.6-1.0); GFR 98.4; POTASSIUM 3.4 mmol/L (3.5-5.1); TOTAL BILIRUBIN 0.8 mg/dL (0.2-1.0); TOTAL PROTEIN 4.4 g/dL (6.4-8.2)
--- NOTE | 2018-08-05 08:36 | PDOC ---
JEANETH JOHNSON LENGTH CONTROL TESTER 08/05/18 0836: SURGICAL PROGRESS NOTE Subjective resting rough night, didnt sleep much scant rectal bleeding now Vital Signs Vital Signs Date Time Temp Pulse Resp B/P (MAP) Pulse Ox O2 Delivery O2 Flow Rate FiO2 08/05/18 06:00 60 20 125/75 (92) 98 Room Air 08/05/18 05:00 98.4 98.4 I&O Intake and Output 08/05/18 07:00 Intake Total 4153 ml Output Total 2540 ml Balance 1613 ml Intake Oral 275 ml IV Total 1998 ml Blood Product 310 ml Blood Product IV Normal Saline Flush 1570 ml Output Urine Total 2240 ml Estimated Blood Loss 300 ml # Bowel Movements 2 General: Cooperative, No acute distress Abdomen: Soft, No tenderness Labs Laboratory Tests Test 08/03/18 12:15 08/03/18 17:45 08/03/18 18:30 08/03/18 19:00 White Blood Count 7.1 x10^3/uL (4.0-11.0) 5.3 x10^3/uL (4.0-11.0) 5.7 x10^3/uL (4.0-11.0) Red Blood Count 3.40 x10^6/uL (3.50-5.40) 2.06 x10^6/uL (3.50-5.40) 2.11 x10^6/uL (3.50-5.40) Hemoglobin 8.9 g/dL (12.0-15.5) 5.5 g/dL (12.0-15.5) 5.6 g/dL (12.0-15.5) Hematocrit 26.8 % (36.0-47.0) 16.0 % (36.0-47.0) 16.8 % (36.0-47.0) Mean Corpuscular Volume 79 fL (79-100) 78 fL (79-100) 80 fL (79-100) Mean Corpuscular Hemoglobin 26 pg (25-35) 27 pg (25-35) 27 pg (25-35) Mean Corpuscular Hemoglobin Concent 33 g/dL (31-37) 34 g/dL (31-37) 33 g/dL (31-37) Red Cell Distribution Width 19.2 % (11.5-14.5) 19.3 % (11.5-14.5) 19.3 % (11.5-14.5) Platelet Count 125 x10^3/uL (140-400) 112 x10^3/uL (140-400) 77 x10^3/uL (140-400) Neutrophils (%) (Auto) 74 % (31-73) Lymphocytes (%) (Auto) 19 % (24-48) Monocytes (%) (Auto) 6 % (0-9) Eosinophils (%) (Auto) 0 % (0-3) Basophils (%) (Auto) 0 % (0-3) Neutrophils # (Auto) 3.9 x10^3uL (1.8-7.7) Lymphocytes # (Auto) 1.0 x10^3/uL (1.0-4.8) Monocytes # (Auto) 0.3 x10^3/uL (0.0-1.1) Eosinophils # (Auto) 0.0 x10^3/uL (0.0-0.7) Basophils # (Auto) 0.0 x10^3/uL (0.0-0.2) Prothrombin Time 17.9 SEC (11.7-14.0) Prothromb Time International Ratio 1.5 (0.8-1.1) Test 08/03/18 21:00 08/04/18 05:00 08/04/18 12:50 08/04/18 18:20 White Blood Count 7.7 x10^3/uL (4.0-11.0) 7.2 x10^3/uL (4.0-11.0) 6.6 x10^3/uL (4.0-11.0) Red Blood Count 2.83 x10^6/uL (3.50-5.40) 2.68 x10^6/uL (3.50-5.40) 2.34 x10^6/uL (3.50-5.40) Hemoglobin 8.1 g/dL (12.0-15.5) 7.6 g/dL (12.0-15.5) 7.1 g/dL (12.0-15.5) 6.7 g/dL (12.0-15.5) Hematocrit 23.2 % (36.0-47.0) 21.6 % (36.0-47.0) 20.2 % (36.0-47.0) 18.8 % (36.0-47.0) Mean Corpuscular Volume 82 fL (79-100) 81 fL (79-100) 80 fL (79-100) Mean Corpuscular Hemoglobin 29 pg (25-35) 28 pg (25-35) 28 pg (25-35) Mean Corpuscular Hemoglobin Concent 35 g/dL (31-37) 35 g/dL (31-37) 35 g/dL (31-37) Red Cell Distribution Width 18.4 % (11.5-14.5) 18.3 % (11.5-14.5) 18.5 % (11.5-14.5) Platelet Count 154 x10^3/uL (140-400) 152 x10^3/uL (140-400) 144 x10^3/uL (140-400) Neutrophils (%) (Auto) 73 % (31-73) 74 % (31-73) Lymphocytes (%) (Auto) 20 % (24-48) 19 % (24-48) Monocytes (%) (Auto) 7 % (0-9) 7 % (0-9) Eosinophils (%) (Auto) 1 % (0-3) 1 % (0-3) Basophils (%) (Auto) 0 % (0-3) 0 % (0-3) Neutrophils # (Auto) 5.6 x10^3uL (1.8-7.7) 5.3 x10^3uL (1.8-7.7) Lymphocytes # (Auto) 1.5 x10^3/uL (1.0-4.8) 1.3 x10^3/uL (1.0-4.8) Monocytes # (Auto) 0.5 x10^3/uL (0.0-1.1) 0.5 x10^3/uL (0.0-1.1) Eosinophils # (Auto) 0.0 x10^3/uL (0.0-0.7) 0.0 x10^3/uL (0.0-0.7) Basophils # (Auto) 0.0 x10^3/uL (0.0-0.2) 0.0 x10^3/uL (0.0-0.2) Sodium Level 150 mmol/L (136-145) Potassium Level 3.1 mmol/L (3.5-5.1) Chloride Level 118 mmol/L (98-107) Carbon Dioxide Level 23 mmol/L (21-32) Anion Gap 9 (6-14) Blood Urea Nitrogen 9 mg/dL (7-20) Creatinine 0.7 mg/dL (0.6-1.0) Estimated GFR (Cockcroft-Gault) 98.4 Glucose Level 152 mg/dL (70-99) Calcium Level 7.3 mg/dL (8.5-10.1) Test 08/05/18 05:30 White Blood Count 5.6 x10^3/uL (4.0-11.0) Red Blood Count 3.16 x10^6/uL (3.50-5.40) Hemoglobin 9.2 g/dL (12.0-15.5) Hematocrit 26.7 % (36.0-47.0) Mean Corpuscular Volume 85 fL (79-100) Mean Corpuscular Hemoglobin 29 pg (25-35) Mean Corpuscular Hemoglobin Concent 35 g/dL (31-37) Red Cell Distribution Width 17.9 % (11.5-14.5) Platelet Count 123 x10^3/uL (140-400) Neutrophils (%) (Auto) 74 % (31-73) Lymphocytes (%) (Auto) 17 % (24-48) Monocytes (%) (Auto) 7 % (0-9) Eosinophils (%) (Auto) 2 % (0-3) Basophils (%) (Auto) 0 % (0-3) Neutrophils # (Auto) 4.1 x10^3uL (1.8-7.7) Lymphocytes # (Auto) 0.9 x10^3/uL (1.0-4.8) Monocytes # (Auto) 0.4 x10^3/uL (0.0-1.1) Eosinophils # (Auto) 0.1 x10^3/uL (0.0-0.7) Basophils # (Auto) 0.0 x10^3/uL (0.0-0.2) Sodium Level 143 mmol/L (136-145) Potassium Level 3.4 mmol/L (3.5-5.1) Chloride Level 114 mmol/L (98-107) Carbon Dioxide Level 25 mmol/L (21-32) Anion Gap 4 (6-14) Blood Urea Nitrogen 3 mg/dL (7-20) Creatinine 0.7 mg/dL (0.6-1.0) Estimated GFR (Cockcroft-Gault) 98.4 BUN/Creatinine Ratio 4 (6-20) Glucose Level 110 mg/dL (70-99) Calcium Level 7.5 mg/dL (8.5-10.1) Total Bilirubin 0.8 mg/dL (0.2-1.0) Aspartate Amino Transf (AST/SGOT) 18 U/L (15-37) Alanine Aminotransferase (ALT/SGPT) 14 U/L (14-59) Alkaline Phosphatase 40 U/L (46-116) Total Protein 4.4 g/dL (6.4-8.2) Albumin 2.2 g/dL (3.4-5.0) Albumin/Globulin Ratio 1.0 (1.0-1.7) Laboratory Tests Test 08/04/18 12:50 08/04/18 18:20 08/05/18 05:30 Hemoglobin 7.1 g/dL (12.0-15.5) 6.7 g/dL (12.0-15.5) 9.2 g/dL (12.0-15.5) Hematocrit 20.2 % (36.0-47.0) 18.8 % (36.0-47.0) 26.7 % (36.0-47.0) White Blood Count 6.6 x10^3/uL (4.0-11.0) 5.6 x10^3/uL (4.0-11.0) Red Blood Count 2.34 x10^6/uL (3.50-5.40) 3.16 x10^6/uL (3.50-5.40) Mean Corpuscular Volume 80 fL (79-100) 85 fL (79-100) Mean Corpuscular Hemoglobin 28 pg (25-35) 29 pg (25-35) Mean Corpuscular Hemoglobin Concent 35 g/dL (31-37) 35 g/dL (31-37) Red Cell Distribution Width 18.5 % (11.5-14.5) 17.9 % (11.5-14.5) Platelet Count 144 x10^3/uL (140-400) 123 x10^3/uL (140-400) Neutrophils (%) (Auto) 74 % (31-73) Lymphocytes (%) (Auto) 17 % (24-48) Monocytes (%) (Auto) 7 % (0-9) Eosinophils (%) (Auto) 2 % (0-3) Basophils (%) (Auto) 0 % (0-3) Neutrophils # (Auto) 4.1 x10^3uL (1.8-7.7) Lymphocytes # (Auto) 0.9 x10^3/uL (1.0-4.8) Monocytes # (Auto) 0.4 x10^3/uL (0.0-1.1) Eosinophils # (Auto) 0.1 x10^3/uL (0.0-0.7) Basophils # (Auto) 0.0 x10^3/uL (0.0-0.2) Sodium Level 143 mmol/L (136-145) Potassium Level 3.4 mmol/L (3.5-5.1) Chloride Level 114 mmol/L (98-107) Carbon Dioxide Level 25 mmol/L (21-32) Anion Gap 4 (6-14) Blood Urea Nitrogen 3 mg/dL (7-20) Creatinine 0.7 mg/dL (0.6-1.0) Estimated GFR (Cockcroft-Gault) 98.4 BUN/Creatinine Ratio 4 (6-20) Glucose Level 110 mg/dL (70-99) Calcium Level 7.5 mg/dL (8.5-10.1) Total Bilirubin 0.8 mg/dL (0.2-1.0) Aspartate Amino Transf (AST/SGOT) 18 U/L (15-37) Alanine Aminotransferase (ALT/SGPT) 14 U/L (14-59) Alkaline Phosphatase 40 U/L (46-116) Total Protein 4.4 g/dL (6.4-8.2) Albumin 2.2 g/dL (3.4-5.0) Albumin/Globulin Ratio 1.0 (1.0-1.7) Problem List Problems Medical Problems: (1) GI bleed Status: Acute Assessment/Plan hg now 9.2 after blood plts 123 recheck H/H at 1500 XI MILLER MD 08/05/18 1007: SURGICAL PROGRESS NOTE Assessment/Plan Patient seen and examined resting comfortably in bed not taking any by mouth. Abdomen benign assigned stable we'll continue to monitor for bleeding JEANETH JOHNSON APRN Aug 05, 2018 08:36 XI MILLER MD Aug 05, 2018 10:07
[2018-08-05] MEDS: PANTOPRAZOLE IV PUSH 40 MG VIAL. IVP SCH (08:37)
[2018-08-05] MEDS: POLYETHYLENE GLYCOL 3350 17 GM PACKET. PO SCH (08:37)
--- NOTE | 2018-08-05 10:08 | PDOC ---
IM PROGRESS NOTES- Subjective Subjective Patient is sleeping now. As per staff her agitation is improving with the sublingual Zyprexa. Unable to do any systems review. Objective Vitals Vital Signs Date Time Temp Pulse Resp B/P (MAP) Pulse Ox O2 Delivery O2 Flow Rate FiO2 08/05/18 06:00 60 20 125/75 (92) 98 Room Air 08/05/18 05:00 98.4 98.4 Input & Output Intake and Output 08/05/18 07:00 Intake Total 4153 ml Output Total 2540 ml Balance 1613 ml Intake Oral 275 ml IV Total 1998 ml Blood Product 310 ml Blood Product IV Normal Saline Flush 1570 ml Output Urine Total 2240 ml Estimated Blood Loss 300 ml # Bowel Movements 2 Physical Exam Physical Exam General appearance - alert, ill appearing and sleeping Mental Status -sleeping Chest - decreased breath sounds bilaterally Heart - S1 and S2 normal Abdomen - soft, nontender, nondistended, no masses or organomegaly Neurological -sleeping Musculoskeletal - no muscular tenderness noted Extremities - no pedal edema Skin - warm and dry Labs Laboratory Tests Test 08/03/18 12:15 08/03/18 17:45 08/03/18 18:30 08/03/18 19:00 White Blood Count 7.1 x10^3/uL (4.0-11.0) 5.3 x10^3/uL (4.0-11.0) 5.7 x10^3/uL (4.0-11.0) Red Blood Count 3.40 x10^6/uL (3.50-5.40) 2.06 x10^6/uL (3.50-5.40) 2.11 x10^6/uL (3.50-5.40) Hemoglobin 8.9 g/dL (12.0-15.5) 5.5 g/dL (12.0-15.5) 5.6 g/dL (12.0-15.5) Hematocrit 26.8 % (36.0-47.0) 16.0 % (36.0-47.0) 16.8 % (36.0-47.0) Mean Corpuscular Volume 79 fL (79-100) 78 fL (79-100) 80 fL (79-100) Mean Corpuscular Hemoglobin 26 pg (25-35) 27 pg (25-35) 27 pg (25-35) Mean Corpuscular Hemoglobin Concent 33 g/dL (31-37) 34 g/dL (31-37) 33 g/dL (31-37) Red Cell Distribution Width 19.2 % (11.5-14.5) 19.3 % (11.5-14.5) 19.3 % (11.5-14.5) Platelet Count 125 x10^3/uL (140-400) 112 x10^3/uL (140-400) 77 x10^3/uL (140-400) Neutrophils (%) (Auto) 74 % (31-73) Lymphocytes (%) (Auto) 19 % (24-48) Monocytes (%) (Auto) 6 % (0-9) Eosinophils (%) (Auto) 0 % (0-3) Basophils (%) (Auto) 0 % (0-3) Neutrophils # (Auto) 3.9 x10^3uL (1.8-7.7) Lymphocytes # (Auto) 1.0 x10^3/uL (1.0-4.8) Monocytes # (Auto) 0.3 x10^3/uL (0.0-1.1) Eosinophils # (Auto) 0.0 x10^3/uL (0.0-0.7) Basophils # (Auto) 0.0 x10^3/uL (0.0-0.2) Prothrombin Time 17.9 SEC (11.7-14.0) Prothromb Time International Ratio 1.5 (0.8-1.1) Test 08/03/18 21:00 08/04/18 05:00 08/04/18 12:50 08/04/18 18:20 White Blood Count 7.7 x10^3/uL (4.0-11.0) 7.2 x10^3/uL (4.0-11.0) 6.6 x10^3/uL (4.0-11.0) Red Blood Count 2.83 x10^6/uL (3.50-5.40) 2.68 x10^6/uL (3.50-5.40) 2.34 x10^6/uL (3.50-5.40) Hemoglobin 8.1 g/dL (12.0-15.5) 7.6 g/dL (12.0-15.5) 7.1 g/dL (12.0-15.5) 6.7 g/dL (12.0-15.5) Hematocrit 23.2 % (36.0-47.0) 21.6 % (36.0-47.0) 20.2 % (36.0-47.0) 18.8 % (36.0-47.0) Mean Corpuscular Volume 82 fL (79-100) 81 fL (79-100) 80 fL (79-100) Mean Corpuscular Hemoglobin 29 pg (25-35) 28 pg (25-35) 28 pg (25-35) Mean Corpuscular Hemoglobin Concent 35 g/dL (31-37) 35 g/dL (31-37) 35 g/dL (31-37) Red Cell Distribution Width 18.4 % (11.5-14.5) 18.3 % (11.5-14.5) 18.5 % (11.5-14.5) Platelet Count 154 x10^3/uL (140-400) 152 x10^3/uL (140-400) 144 x10^3/uL (140-400) Neutrophils (%) (Auto) 73 % (31-73) 74 % (31-73) Lymphocytes (%) (Auto) 20 % (24-48) 19 % (24-48) Monocytes (%) (Auto) 7 % (0-9) 7 % (0-9) Eosinophils (%) (Auto) 1 % (0-3) 1 % (0-3) Basophils (%) (Auto) 0 % (0-3) 0 % (0-3) Neutrophils # (Auto) 5.6 x10^3uL (1.8-7.7) 5.3 x10^3uL (1.8-7.7) Lymphocytes # (Auto) 1.5 x10^3/uL (1.0-4.8) 1.3 x10^3/uL (1.0-4.8) Monocytes # (Auto) 0.5 x10^3/uL (0.0-1.1) 0.5 x10^3/uL (0.0-1.1) Eosinophils # (Auto) 0.0 x10^3/uL (0.0-0.7) 0.0 x10^3/uL (0.0-0.7) Basophils # (Auto) 0.0 x10^3/uL (0.0-0.2) 0.0 x10^3/uL (0.0-0.2) Sodium Level 150 mmol/L (136-145) Potassium Level 3.1 mmol/L (3.5-5.1) Chloride Level 118 mmol/L (98-107) Carbon Dioxide Level 23 mmol/L (21-32) Anion Gap 9 (6-14) Blood Urea Nitrogen 9 mg/dL (7-20) Creatinine 0.7 mg/dL (0.6-1.0) Estimated GFR (Cockcroft-Gault) 98.4 Glucose Level 152 mg/dL (70-99) Calcium Level 7.3 mg/dL (8.5-10.1) Test 08/05/18 05:30 White Blood Count 5.6 x10^3/uL (4.0-11.0) Red Blood Count 3.16 x10^6/uL (3.50-5.40) Hemoglobin 9.2 g/dL (12.0-15.5) Hematocrit 26.7 % (36.0-47.0) Mean Corpuscular Volume 85 fL (79-100) Mean Corpuscular Hemoglobin 29 pg (25-35) Mean Corpuscular Hemoglobin Concent 35 g/dL (31-37) Red Cell Distribution Width 17.9 % (11.5-14.5) Platelet Count 123 x10^3/uL (140-400) Neutrophils (%) (Auto) 74 % (31-73) Lymphocytes (%) (Auto) 17 % (24-48) Monocytes (%) (Auto) 7 % (0-9) Eosinophils (%) (Auto) 2 % (0-3) Basophils (%) (Auto) 0 % (0-3) Neutrophils # (Auto) 4.1 x10^3uL (1.8-7.7) Lymphocytes # (Auto) 0.9 x10^3/uL (1.0-4.8) Monocytes # (Auto) 0.4 x10^3/uL (0.0-1.1) Eosinophils # (Auto) 0.1 x10^3/uL (0.0-0.7) Basophils # (Auto) 0.0 x10^3/uL (0.0-0.2) Sodium Level 143 mmol/L (136-145) Potassium Level 3.4 mmol/L (3.5-5.1) Chloride Level 114 mmol/L (98-107) Carbon Dioxide Level 25 mmol/L (21-32) Anion Gap 4 (6-14) Blood Urea Nitrogen 3 mg/dL (7-20) Creatinine 0.7 mg/dL (0.6-1.0) Estimated GFR (Cockcroft-Gault) 98.4 BUN/Creatinine Ratio 4 (6-20) Glucose Level 110 mg/dL (70-99) Calcium Level 7.5 mg/dL (8.5-10.1) Total Bilirubin 0.8 mg/dL (0.2-1.0) Aspartate Amino Transf (AST/SGOT) 18 U/L (15-37) Alanine Aminotransferase (ALT/SGPT) 14 U/L (14-59) Alkaline Phosphatase 40 U/L (46-116) Total Protein 4.4 g/dL (6.4-8.2) Albumin 2.2 g/dL (3.4-5.0) Albumin/Globulin Ratio 1.0 (1.0-1.7) Laboratory Tests Test 08/04/18 12:50 08/04/18 18:20 08/05/18 05:30 Hemoglobin 7.1 g/dL (12.0-15.5) 6.7 g/dL (12.0-15.5) 9.2 g/dL (12.0-15.5) Hematocrit 20.2 % (36.0-47.0) 18.8 % (36.0-47.0) 26.7 % (36.0-47.0) White Blood Count 6.6 x10^3/uL (4.0-11.0) 5.6 x10^3/uL (4.0-11.0) Red Blood Count 2.34 x10^6/uL (3.50-5.40) 3.16 x10^6/uL (3.50-5.40) Mean Corpuscular Volume 80 fL (79-100) 85 fL (79-100) Mean Corpuscular Hemoglobin 28 pg (25-35) 29 pg (25-35) Mean Corpuscular Hemoglobin Concent 35 g/dL (31-37) 35 g/dL (31-37) Red Cell Distribution Width 18.5 % (11.5-14.5) 17.9 % (11.5-14.5) Platelet Count 144 x10^3/uL (140-400) 123 x10^3/uL (140-400) Neutrophils (%) (Auto) 74 % (31-73) Lymphocytes (%) (Auto) 17 % (24-48) Monocytes (%) (Auto) 7 % (0-9) Eosinophils (%) (Auto) 2 % (0-3) Basophils (%) (Auto) 0 % (0-3) Neutrophils # (Auto) 4.1 x10^3uL (1.8-7.7) Lymphocytes # (Auto) 0.9 x10^3/uL (1.0-4.8) Monocytes # (Auto) 0.4 x10^3/uL (0.0-1.1) Eosinophils # (Auto) 0.1 x10^3/uL (0.0-0.7) Basophils # (Auto) 0.0 x10^3/uL (0.0-0.2) Sodium Level 143 mmol/L (136-145) Potassium Level 3.4 mmol/L (3.5-5.1) Chloride Level 114 mmol/L (98-107) Carbon Dioxide Level 25 mmol/L (21-32) Anion Gap 4 (6-14) Blood Urea Nitrogen 3 mg/dL (7-20) Creatinine 0.7 mg/dL (0.6-1.0) Estimated GFR (Cockcroft-Gault) 98.4 BUN/Creatinine Ratio 4 (6-20) Glucose Level 110 mg/dL (70-99) Calcium Level 7.5 mg/dL (8.5-10.1) Total Bilirubin 0.8 mg/dL (0.2-1.0) Aspartate Amino Transf (AST/SGOT) 18 U/L (15-37) Alanine Aminotransferase (ALT/SGPT) 14 U/L (14-59) Alkaline Phosphatase 40 U/L (46-116) Total Protein 4.4 g/dL (6.4-8.2) Albumin 2.2 g/dL (3.4-5.0) Albumin/Globulin Ratio 1.0 (1.0-1.7) Meds Current Medications Olanzapine (ZyPREXA ZYDIS) 5 mg PRN BID PRN PO ANXIETY / AGITATION Last administered on 08/04/18at 21:09; Start 08/04/18 at 10:45 Polyethylene Glycol (miraLAX PACKET) 17 gm DAILY PO Last administered on at 08:37; Start 08/04/18 at 14:45 Potassium Chloride 40 meq/ Dextrose/Sodium Chloride 1,020 ml @ 150 mls/hr [id number] IV Last administered on 08/05/18at 05:53; Start 08/04/18 at 11:15 Assessment Assessment Problems Medical Problems: (1) GI bleed Status: Acute FINAL IMPRESSION: 1. Acute Lower gastrointestinal bleed. 2. Dementia. 3. Anemia due to GI bleed. 4. Neuropathy. 5. General debility. 6. History of previous surgeries including knee replacements. 7. The patient is on aspirin. 8. Dementia with agitation and confusion, encephalopathy 9. Hypokalemia 10. Hypernatremia PLAN: 2 u prbc last night ,hb 10 today colonoscopy today. surgical consult as back up. CTA to r/o active bleed. monitor Hb q 6 hrs iv hydration. keep in ICU spoke with family iv protonix At this time was to hold aspirin. Medications n.p.o., IV fluids. The patient also had episode of hypotension, given fluid challenge 1 liter, was moved to ICU and GI is consulted. Monitor hemoglobin q. 6 hours. Transfuse 2 units and further recommendations to follow. I spoke with family members. Hold off on anticoagulation. SCDs for DVT prevention. Also, IV Protonix and drip. Acute GI bleeding- patient received 2 units of packed red blood cells yesterday. Hemoglobin increased from 6.7-9.2. GI bleeding is clinically improving. As per skiving machine operator, this is likely diverticular. IR NOTE S/P visceral angiography for GI bleed. No active bleeding was identified. 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 Reduced but persistent forward flow. By CTA, SMA was widely patent. Proximal LINDA occlusion is almost always clinically insignificant, and the artery is commonly coiled/covered during endovascular interventions. Unfortunately, this may limit the ability to re select the LINDA and attempt a repeat intervention. If bleeding fails to resolve repeat endoscopic or surgical intervention may be needed. Continue to monitor for GI bleeding. Hemoglobin and hematocrit every 6 hours. Improving. Potassium is 3.4 Hypernatremia-improving sodium is now 143 Acute metabolic encephalopathy- likely also has underlying dementia as per information from the family members. Patient has high IV Haldol ordered but I will also use Zyprexa sublingually if available. Thrombocytopenia - monitor. May be worse due to bleeding as well as transfusion. Continue monitoring in intensive care unit. Plan Plan For more details regarding further plans, please refer to the orders. Nutrition Consultation Dietary Evaluation: Recommendations by RD: Increase Calorie Intake Comments: REC advance diet as able pending results of colonoscopy If unable to advance diet within 24-48 hrs, recommend PPN for short-term nutrition needs Expected Outcomes/Goals: diet advancement Interpretation of weight loss: >7.5% in 3 months Malnutrition Findings: Food and Nutrition Intake (Mod: <75% est energy req 7days Weight Status: Appropriate LIZETH AMBROCIO MD Aug 05, 2018 10:08
--- NOTE | 2018-08-05 10:46 | PDOC ---
GI PROGRESS NOTES Date Date/Time DATE: 08/05/18 TIME: 10:44 Subjective Subjective improved- no more bleeding Hgb stable- confused- no abd pain Objective Vitals Vital Signs Date Time Temp Pulse Resp B/P (MAP) Pulse Ox O2 Delivery O2 Flow Rate FiO2 08/05/18 08:00 Room Air 08/05/18 06:00 60 20 125/75 (92) 98 Room Air 08/05/18 05:00 98.4 62 20 119/74 (89) Room Air 98.4 08/05/18 04:16 Room Air 08/05/18 04:00 58 20 158/94 (115) 99 Room Air 08/05/18 03:00 72 20 112/74 (87) Room Air 08/05/18 02:00 70 20 131/66 (87) Room Air 08/05/18 01:00 86 20 101/70 (80) 98 Room Air 08/05/18 00:00 78 20 116/90 (99) 98 Room Air 08/05/18 00:00 Room Air 08/04/18 23:00 98.9 82 20 110/73 (85) Room Air 98.9 08/04/18 23:00 82 20 110/73 08/04/18 22:45 99.0 86 20 134/71 99.0 08/04/18 22:29 99.1 101 20 141/81 99.1 08/04/18 22:15 88 20 131/79 08/04/18 22:00 98 20 141/81 (101) 98 Room Air 08/04/18 21:15 80 20 137/67 08/04/18 21:00 94 20 137/67 (90) 99 Room Air 08/04/18 20:17 99.8 74 18 108/67 99.8 08/04/18 20:02 98.5 90 20 134/71 98.5 08/04/18 20:00 99.5 120 20 132/72 (92) 98 Room Air 99.5 08/04/18 19:30 Room Air 08/04/18 18:00 95 22 118/73 (88) Room Air 08/04/18 17:00 98.9 90 22 136/75 (95) 99 Room Air 98.9 08/04/18 16:00 Room Air 08/04/18 16:00 72 22 135/76 (95) Room Air 08/04/18 15:00 96 22 107/67 (80) Room Air 08/04/18 14:00 87 22 120/68 (85) 100 08/04/18 13:34 87 22 119/70 (86) 97 08/04/18 12:00 Room Air 08/04/18 12:00 97.9 88 23 119/70 (86) 97.9 08/04/18 11:12 74 17 105/74 (84) 96 Labs Labs Laboratory Tests Test 08/04/18 12:50 08/04/18 18:20 08/05/18 05:30 Hemoglobin 7.1 g/dL (12.0-15.5) 6.7 g/dL (12.0-15.5) 9.2 g/dL (12.0-15.5) Hematocrit 20.2 % (36.0-47.0) 18.8 % (36.0-47.0) 26.7 % (36.0-47.0) White Blood Count 6.6 x10^3/uL (4.0-11.0) 5.6 x10^3/uL (4.0-11.0) Red Blood Count 2.34 x10^6/uL (3.50-5.40) 3.16 x10^6/uL (3.50-5.40) Mean Corpuscular Volume 80 fL (79-100) 85 fL (79-100) Mean Corpuscular Hemoglobin 28 pg (25-35) 29 pg (25-35) Mean Corpuscular Hemoglobin Concent 35 g/dL (31-37) 35 g/dL (31-37) Red Cell Distribution Width 18.5 % (11.5-14.5) 17.9 % (11.5-14.5) Platelet Count 144 x10^3/uL (140-400) 123 x10^3/uL (140-400) Neutrophils (%) (Auto) 74 % (31-73) Lymphocytes (%) (Auto) 17 % (24-48) Monocytes (%) (Auto) 7 % (0-9) Eosinophils (%) (Auto) 2 % (0-3) Basophils (%) (Auto) 0 % (0-3) Neutrophils # (Auto) 4.1 x10^3uL (1.8-7.7) Lymphocytes # (Auto) 0.9 x10^3/uL (1.0-4.8) Monocytes # (Auto) 0.4 x10^3/uL (0.0-1.1) Eosinophils # (Auto) 0.1 x10^3/uL (0.0-0.7) Basophils # (Auto) 0.0 x10^3/uL (0.0-0.2) Sodium Level 143 mmol/L (136-145) Potassium Level 3.4 mmol/L (3.5-5.1) Chloride Level 114 mmol/L (98-107) Carbon Dioxide Level 25 mmol/L (21-32) Anion Gap 4 (6-14) Blood Urea Nitrogen 3 mg/dL (7-20) Creatinine 0.7 mg/dL (0.6-1.0) Estimated GFR (Cockcroft-Gault) 98.4 BUN/Creatinine Ratio 4 (6-20) Glucose Level 110 mg/dL (70-99) Calcium Level 7.5 mg/dL (8.5-10.1) Total Bilirubin 0.8 mg/dL (0.2-1.0) Aspartate Amino Transf (AST/SGOT) 18 U/L (15-37) Alanine Aminotransferase (ALT/SGPT) 14 U/L (14-59) Alkaline Phosphatase 40 U/L (46-116) Total Protein 4.4 g/dL (6.4-8.2) Albumin 2.2 g/dL (3.4-5.0) Albumin/Globulin Ratio 1.0 (1.0-1.7) Physical Exam Physical Exam awake but confused chest- clear cor- RRR abd soft non tender good bowel sounds Assessment Assessment Acute and brisk rectal bleeding on and Monday- likely from diverticular origin- s/p colonoscopy, bleeding scan, CTA and angiography- appears to have resolved with later testing showing no further active bleeding yesterday Now with 24 hours of no active bleeding- Plan advance diet and monitor Plan Plan Due to constipation will start miralax since bleeding appears improved or resolved - I will start CLD - advance slowly as tolerated YEMI PELAYO MD Aug 05, 2018 10:46
[2018-08-05] MEDS ORDERED: ePHEDrine PF IN SALINE 50 MG/5 ML DISP.SYRIN IV ONE (12:00)
[2018-08-05 16:14] LABS: HEMATOCRIT 27.1 % (36.0-47.0); HEMOGLOBIN 9.5 g/dL (12.0-15.5); RED BLOOD COUNT 3.23 x10^6/uL (3.50-5.40); RED CELL DISTRIBUTION WIDTH 17.8 % (11.5-14.5); WHITE BLOOD COUNT 5.6 x10^3/uL (4.0-11.0)
[2018-08-05] MEDS: ZOLPIDEM 5 MG TABLET. PO PRN (20:05)
[2018-08-06] VITALS (12 sets, daily range): BP systolic 108–155; BP diastolic 69–101
[2018-08-06] MEDS: POTASSIUM CHLORIDE 40 MEQ in IV DEXTROSE 5% - 0.9 % NACL 1,000 ML IV SCH (04:16)
[2018-08-06 05:50] LABS: BASO % 0 % (0-3); EOS # 0.1 x10^3/uL (0.0-0.7); EOS % 3 % (0-3); HEMATOCRIT 26.3 % (36.0-47.0); LYMPH # 1.1 x10^3/uL (1.0-4.8); LYMPH % 20 % (24-48); MEAN CORPUSCULAR HEMOGLOBIN 29 pg (25-35); MEAN CORPUSCULAR HGB CONC 34 g/dL (31-37); MEAN CORPUSCULAR VOLUME 84 fL (79-100); MONO # 0.3 x10^3/uL (0.0-1.1); MONO % 6 % (0-9); NEUT # 3.9 x10^3uL (1.8-7.7); NEUT % 71 % (31-73); PLATELET COUNT 124 x10^3/uL (140-400); RED BLOOD COUNT 3.13 x10^6/uL (3.50-5.40); RED CELL DISTRIBUTION WIDTH 18.2 % (11.5-14.5); WHITE BLOOD COUNT 5.5 x10^3/uL (4.0-11.0)
[2018-08-06 06:35] LABS: CALCIUM 7.6 mg/dL (8.5-10.1); CREATININE 0.7 mg/dL (0.6-1.0); GFR 98.4; POTASSIUM 3.9 mmol/L (3.5-5.1)
[2018-08-06] MEDS: PANTOPRAZOLE IV PUSH 40 MG VIAL. IVP SCH (08:11)
[2018-08-06] MEDS: POLYETHYLENE GLYCOL 3350 17 GM PACKET. PO SCH (08:12)
--- NOTE | 2018-08-06 09:45 | PDOC ---
PROGRESS NOTES Subjective Subjective no more active bleed,old clots coming out Objective Objective Vital Signs Date Time Temp Pulse Resp B/P (MAP) Pulse Ox O2 Delivery O2 Flow Rate FiO2 08/06/18 09:00 76 21 152/99 (116) Room Air 08/06/18 07:00 97.9 97.9 08/06/18 05:30 98 Intake and Output 08/06/18 07:00 Intake Total 3194 ml Output Total 4000 ml Balance -806 ml Intake Oral 50 ml IV Total 2894 ml Blood Product 250 ml Output Urine Total 4000 ml # Bowel Movements 2 Physical Exam Abdomen: Soft, No tenderness Heart: Regular rate, Normal S1, Normal S2 Extremities: No edema General: Cooperative, No acute distress HEENT: Atraumatic, PERRLA, EOMI Lungs: Clear to auscultation, Normal air movement Neck: Supple Neuro: Normal speech, Other (confusion and agiataion) Skin: No significant lesion Diagnosis Problem List Problems Medical Problems: (1) GI bleed Status: Acute Assessment Assessment Problems Medical Problems: (1) GI bleed Status: Acute FINAL IMPRESSION: 1. Acute Lower gastrointestinal bleed. 2. Dementia. 3. Anemia due to GI bleed. 4. Neuropathy. 5. General debility. 6. History of previous surgeries including knee replacements. 7. The patient is on aspirin. 8. Dementia with agitation and confusion, encephalopathy 9. Hypokalemia 10. Hypernatremia PLAN: started on clear liquid diet 2 u prbc last night ,hb 9.4 today colonoscopy done surgical consult as back up. CTA active bleed from left colon. monitor Hb q 6 hrs change to ProcalAmine. transfer out of ICU spoke with family iv protonix Plan Plan of Care Problems Medical Problems: (1) GI bleed Status: Acute Comment Review of Relevant I have reviewed the following items bindu (where applicable) has been applied. Labs Laboratory Tests Test 08/05/18 15:45 08/06/18 05:30 White Blood Count 5.6 x10^3/uL (4.0-11.0) 5.5 x10^3/uL (4.0-11.0) Red Blood Count 3.23 x10^6/uL (3.50-5.40) 3.13 x10^6/uL (3.50-5.40) Hemoglobin 9.5 g/dL (12.0-15.5) 9.0 g/dL (12.0-15.5) Hematocrit 27.1 % (36.0-47.0) 26.3 % (36.0-47.0) Mean Corpuscular Volume 84 fL (79-100) 84 fL (79-100) Mean Corpuscular Hemoglobin 30 pg (25-35) 29 pg (25-35) Mean Corpuscular Hemoglobin Concent 35 g/dL (31-37) 34 g/dL (31-37) Red Cell Distribution Width 17.8 % (11.5-14.5) 18.2 % (11.5-14.5) Platelet Count 129 x10^3/uL (140-400) 124 x10^3/uL (140-400) Neutrophils (%) (Auto) 71 % (31-73) Lymphocytes (%) (Auto) 20 % (24-48) Monocytes (%) (Auto) 6 % (0-9) Eosinophils (%) (Auto) 3 % (0-3) Basophils (%) (Auto) 0 % (0-3) Neutrophils # (Auto) 3.9 x10^3uL (1.8-7.7) Lymphocytes # (Auto) 1.1 x10^3/uL (1.0-4.8) Monocytes # (Auto) 0.3 x10^3/uL (0.0-1.1) Eosinophils # (Auto) 0.1 x10^3/uL (0.0-0.7) Basophils # (Auto) 0.0 x10^3/uL (0.0-0.2) Sodium Level 142 mmol/L (136-145) Potassium Level 3.9 mmol/L (3.5-5.1) Chloride Level 111 mmol/L (98-107) Carbon Dioxide Level 24 mmol/L (21-32) Anion Gap 7 (6-14) Blood Urea Nitrogen 1 mg/dL (7-20) Creatinine 0.7 mg/dL (0.6-1.0) Estimated GFR (Cockcroft-Gault) 98.4 Glucose Level 113 mg/dL (70-99) Calcium Level 7.6 mg/dL (8.5-10.1) Vitals/I & O Vital Sign - Last 24 Hours 08/05/18 08/05/18 08/05/18 08/05/18 10:00 11:00 12:00 12:00 Temp 98.3 98.3 Pulse 64 72 66 Resp 17 15 16 B/P (MAP) 152/89 (110) 152/83 (106) 143/90 (107) Pulse Ox 98 O2 Delivery Room Air Room Air Room Air Room Air 08/05/18 08/05/18 08/05/18 08/05/18 13:00 14:00 15:00 16:00 Temp 98.6 98.6 Pulse 80 90 72 62 Resp 18 24 22 17 B/P (MAP) 143/90 (107) 145/89 (107) 143/100 (114) 153/86 (108) Pulse Ox 98 O2 Delivery Room Air Room Air Room Air Room Air 08/05/18 08/05/18 08/05/18 08/05/18 16:00 17:00 18:00 19:00 Temp 98.5 98.5 Pulse 63 65 64 Resp 16 16 16 B/P (MAP) 111/82 (92) 114/78 (90) 129/76 (93) Pulse Ox 99 99 O2 Delivery Room Air Room Air Room Air Room Air 08/05/18 08/05/18 08/05/18 08/05/18 19:43 20:00 21:00 22:00 Pulse 78 90 80 Resp 20 19 22 B/P (MAP) 119/76 (90) 123/76 (92) 114/78 (90) O2 Delivery Room Air Room Air Room Air Room Air 08/05/18 08/05/18 08/06/18 08/06/18 23:00 23:23 01:30 02:30 Pulse 72 66 62 Resp 20 17 15 B/P (MAP) 129/87 (101) 135/83 (100) 145/86 (105) Pulse Ox 98 O2 Delivery Room Air Room Air Room Air Room Air 08/06/18 08/06/18 08/06/18 08/06/18 03:30 04:01 05:30 05:58 Temp 98.9 98.9 Pulse 68 67 70 Resp 18 16 18 B/P (MAP) 136/88 (104) 132/87 (102) 116/78 (91) Pulse Ox 98 O2 Delivery Room Air Room Air Room Air Room Air 08/06/18 08/06/18 08/06/18 08/06/18 07:00 08:00 08:00 09:00 Temp 97.9 97.9 Pulse 58 67 76 Resp 18 17 21 B/P (MAP) 132/74 (93) 131/84 (100) 152/99 (116) O2 Delivery Room Air Room Air Room Air Room Air Intake and Output 08/05/18 08/05/18 08/06/18 15:00 23:00 07:00 Intake Total 150 ml 1902 ml 1142 ml Output Total 700 ml 1700 ml 1600 ml Balance -550 ml 202 ml -458 ml Nutrition Consultation Dietary Evaluation: Recommendations by RD: Increase Calorie Intake Comments: REC advance diet as able pending results of colonoscopy If unable to advance diet within 24-48 hrs, recommend PPN for short-term nutrition needs Expected Outcomes/Goals: diet advancement Interpretation of weight loss: >7.5% in 3 months Malnutrition Findings: Food and Nutrition Intake (Mod: <75% est energy req 7days Weight Status: Appropriate MARIA DOLORES HILARIO MD Aug 06, 2018 09:45
[2018-08-06] MEDS: AMINO AC 3%/ELECTROLYTE/GLYCER 1,000 ML IV SCH ×2 (11:03→23:57)
--- NOTE | 2018-08-06 11:17 | PDOC ---
JEANETH JOHNSON [employer] DESIGNER DEVELOPER 08/06/18 1117: SURGICAL PROGRESS NOTE Subjective up in chair had one stool, some bleeding denies pain Vital Signs Vital Signs Date Time Temp Pulse Resp B/P (MAP) Pulse Ox O2 Delivery O2 Flow Rate FiO2 08/06/18 09:00 76 21 152/99 (116) Room Air 08/06/18 07:00 97.9 97.9 08/06/18 05:30 98 I&O Intake and Output 08/06/18 07:00 Intake Total 3194 ml Output Total 4000 ml Balance -806 ml Intake Oral 50 ml IV Total 2894 ml Blood Product 250 ml Output Urine Total 4000 ml # Bowel Movements 2 General: Cooperative, No acute distress Abdomen: Soft, No tenderness Labs Laboratory Tests Test 08/04/18 12:50 08/04/18 18:20 08/05/18 05:30 08/05/18 15:45 Hemoglobin 7.1 g/dL (12.0-15.5) 6.7 g/dL (12.0-15.5) 9.2 g/dL (12.0-15.5) 9.5 g/dL (12.0-15.5) Hematocrit 20.2 % (36.0-47.0) 18.8 % (36.0-47.0) 26.7 % (36.0-47.0) 27.1 % (36.0-47.0) White Blood Count 6.6 x10^3/uL (4.0-11.0) 5.6 x10^3/uL (4.0-11.0) 5.6 x10^3/uL (4.0-11.0) Red Blood Count 2.34 x10^6/uL (3.50-5.40) 3.16 x10^6/uL (3.50-5.40) 3.23 x10^6/uL (3.50-5.40) Mean Corpuscular Volume 80 fL (79-100) 85 fL (79-100) 84 fL (79-100) Mean Corpuscular Hemoglobin 28 pg (25-35) 29 pg (25-35) 30 pg (25-35) Mean Corpuscular Hemoglobin Concent 35 g/dL (31-37) 35 g/dL (31-37) 35 g/dL (31-37) Red Cell Distribution Width 18.5 % (11.5-14.5) 17.9 % (11.5-14.5) 17.8 % (11.5-14.5) Platelet Count 144 x10^3/uL (140-400) 123 x10^3/uL (140-400) 129 x10^3/uL (140-400) Neutrophils (%) (Auto) 74 % (31-73) Lymphocytes (%) (Auto) 17 % (24-48) Monocytes (%) (Auto) 7 % (0-9) Eosinophils (%) (Auto) 2 % (0-3) Basophils (%) (Auto) 0 % (0-3) Neutrophils # (Auto) 4.1 x10^3uL (1.8-7.7) Lymphocytes # (Auto) 0.9 x10^3/uL (1.0-4.8) Monocytes # (Auto) 0.4 x10^3/uL (0.0-1.1) Eosinophils # (Auto) 0.1 x10^3/uL (0.0-0.7) Basophils # (Auto) 0.0 x10^3/uL (0.0-0.2) Sodium Level 143 mmol/L (136-145) Potassium Level 3.4 mmol/L (3.5-5.1) Chloride Level 114 mmol/L (98-107) Carbon Dioxide Level 25 mmol/L (21-32) Anion Gap 4 (6-14) Blood Urea Nitrogen 3 mg/dL (7-20) Creatinine 0.7 mg/dL (0.6-1.0) Estimated GFR (Cockcroft-Gault) 98.4 BUN/Creatinine Ratio 4 (6-20) Glucose Level 110 mg/dL (70-99) Calcium Level 7.5 mg/dL (8.5-10.1) Total Bilirubin 0.8 mg/dL (0.2-1.0) Aspartate Amino Transf (AST/SGOT) 18 U/L (15-37) Alanine Aminotransferase (ALT/SGPT) 14 U/L (14-59) Alkaline Phosphatase 40 U/L (46-116) Total Protein 4.4 g/dL (6.4-8.2) Albumin 2.2 g/dL (3.4-5.0) Albumin/Globulin Ratio 1.0 (1.0-1.7) Test 08/06/18 05:30 White Blood Count 5.5 x10^3/uL (4.0-11.0) Red Blood Count 3.13 x10^6/uL (3.50-5.40) Hemoglobin 9.0 g/dL (12.0-15.5) Hematocrit 26.3 % (36.0-47.0) Mean Corpuscular Volume 84 fL (79-100) Mean Corpuscular Hemoglobin 29 pg (25-35) Mean Corpuscular Hemoglobin Concent 34 g/dL (31-37) Red Cell Distribution Width 18.2 % (11.5-14.5) Platelet Count 124 x10^3/uL (140-400) Neutrophils (%) (Auto) 71 % (31-73) Lymphocytes (%) (Auto) 20 % (24-48) Monocytes (%) (Auto) 6 % (0-9) Eosinophils (%) (Auto) 3 % (0-3) Basophils (%) (Auto) 0 % (0-3) Neutrophils # (Auto) 3.9 x10^3uL (1.8-7.7) Lymphocytes # (Auto) 1.1 x10^3/uL (1.0-4.8) Monocytes # (Auto) 0.3 x10^3/uL (0.0-1.1) Eosinophils # (Auto) 0.1 x10^3/uL (0.0-0.7) Basophils # (Auto) 0.0 x10^3/uL (0.0-0.2) Sodium Level 142 mmol/L (136-145) Potassium Level 3.9 mmol/L (3.5-5.1) Chloride Level 111 mmol/L (98-107) Carbon Dioxide Level 24 mmol/L (21-32) Anion Gap 7 (6-14) Blood Urea Nitrogen 1 mg/dL (7-20) Creatinine 0.7 mg/dL (0.6-1.0) Estimated GFR (Cockcroft-Gault) 98.4 Glucose Level 113 mg/dL (70-99) Calcium Level 7.6 mg/dL (8.5-10.1) Laboratory Tests Test 08/05/18 15:45 08/06/18 05:30 White Blood Count 5.6 x10^3/uL (4.0-11.0) 5.5 x10^3/uL (4.0-11.0) Red Blood Count 3.23 x10^6/uL (3.50-5.40) 3.13 x10^6/uL (3.50-5.40) Hemoglobin 9.5 g/dL (12.0-15.5) 9.0 g/dL (12.0-15.5) Hematocrit 27.1 % (36.0-47.0) 26.3 % (36.0-47.0) Mean Corpuscular Volume 84 fL (79-100) 84 fL (79-100) Mean Corpuscular Hemoglobin 30 pg (25-35) 29 pg (25-35) Mean Corpuscular Hemoglobin Concent 35 g/dL (31-37) 34 g/dL (31-37) Red Cell Distribution Width 17.8 % (11.5-14.5) 18.2 % (11.5-14.5) Platelet Count 129 x10^3/uL (140-400) 124 x10^3/uL (140-400) Neutrophils (%) (Auto) 71 % (31-73) Lymphocytes (%) (Auto) 20 % (24-48) Monocytes (%) (Auto) 6 % (0-9) Eosinophils (%) (Auto) 3 % (0-3) Basophils (%) (Auto) 0 % (0-3) Neutrophils # (Auto) 3.9 x10^3uL (1.8-7.7) Lymphocytes # (Auto) 1.1 x10^3/uL (1.0-4.8) Monocytes # (Auto) 0.3 x10^3/uL (0.0-1.1) Eosinophils # (Auto) 0.1 x10^3/uL (0.0-0.7) Basophils # (Auto) 0.0 x10^3/uL (0.0-0.2) Sodium Level 142 mmol/L (136-145) Potassium Level 3.9 mmol/L (3.5-5.1) Chloride Level 111 mmol/L (98-107) Carbon Dioxide Level 24 mmol/L (21-32) Anion Gap 7 (6-14) Blood Urea Nitrogen 1 mg/dL (7-20) Creatinine 0.7 mg/dL (0.6-1.0) Estimated GFR (Cockcroft-Gault) 98.4 Glucose Level 113 mg/dL (70-99) Calcium Level 7.6 mg/dL (8.5-10.1) Problem List Problems Medical Problems: (1) GI bleed Status: Acute Assessment/Plan check H/H at 1500 XI MILLER MD 08/07/18 1024: SURGICAL PROGRESS NOTE Assessment/Plan Hemodynamically stable agree with Leander assessment and plan JEANETH JOHNSON APRN Aug 06, 2018 11:17 XI MILLER MD Aug 07, 2018 10:24
--- NOTE | 2018-08-06 13:27 | PDOC ---
G I PROGRESS NOTE Reason for Follow-up GI bleed Subjective Patient confused.family wants to restart alzheimers medications Physical Exam Lungs clear' CV S1 S2 ABD +BS, soft, nontender Review of Relevant I have reviewed the following items bindu (where applicable) has been applied. Labs Laboratory Tests Test 08/04/18 18:20 08/05/18 05:30 08/05/18 15:45 08/06/18 05:30 White Blood Count 6.6 x10^3/uL (4.0-11.0) 5.6 x10^3/uL (4.0-11.0) 5.6 x10^3/uL (4.0-11.0) 5.5 x10^3/uL (4.0-11.0) Red Blood Count 2.34 x10^6/uL (3.50-5.40) 3.16 x10^6/uL (3.50-5.40) 3.23 x10^6/uL (3.50-5.40) 3.13 x10^6/uL (3.50-5.40) Hemoglobin 6.7 g/dL (12.0-15.5) 9.2 g/dL (12.0-15.5) 9.5 g/dL (12.0-15.5) 9.0 g/dL (12.0-15.5) Hematocrit 18.8 % (36.0-47.0) 26.7 % (36.0-47.0) 27.1 % (36.0-47.0) 26.3 % (36.0-47.0) Mean Corpuscular Volume 80 fL (79-100) 85 fL (79-100) 84 fL (79-100) 84 fL ( 79-100) Mean Corpuscular Hemoglobin 28 pg (25-35) 29 pg (25-35) 30 pg (25-35) 29 pg ( 25-35) Mean Corpuscular Hemoglobin Concent 35 g/dL (31-37) 35 g/dL (31-37) 35 g/dL (31-37) 34 g/dL (31-37) Red Cell Distribution Width 18.5 % (11.5-14.5) 17.9 % (11.5-14.5) 17.8 % (11.5-14.5) 18.2 % (11.5-14.5) Platelet Count 144 x10^3/uL (140-400) 123 x10^3/uL (140-400) 129 x10^3/uL (140-400) 124 x10^3/uL (140-400) Neutrophils (%) (Auto) 74 % (31-73) 71 % (31-73) Lymphocytes (%) (Auto) 17 % (24-48) 20 % (24-48) Monocytes (%) (Auto) 7 % (0-9) 6 % (0-9) Eosinophils (%) (Auto) 2 % (0-3) 3 % (0-3) Basophils (%) (Auto) 0 % (0-3) 0 % (0-3) Neutrophils # (Auto) 4.1 x10^3uL (1.8-7.7) 3.9 x10^3uL (1.8-7.7) Lymphocytes # (Auto) 0.9 x10^3/uL (1.0-4.8) 1.1 x10^3/uL (1.0-4.8) Monocytes # (Auto) 0.4 x10^3/uL (0.0-1.1) 0.3 x10^3/uL (0.0-1.1) Eosinophils # (Auto) 0.1 x10^3/uL (0.0-0.7) 0.1 x10^3/uL (0.0-0.7) Basophils # (Auto) 0.0 x10^3/uL (0.0-0.2) 0.0 x10^3/uL (0.0-0.2) Sodium Level 143 mmol/L (136-145) 142 mmol/L (136-145) Potassium Level 3.4 mmol/L (3.5-5.1) 3.9 mmol/L (3.5-5.1) Chloride Level 114 mmol/L (98-107) 111 mmol/L (98-107) Carbon Dioxide Level 25 mmol/L (21-32) 24 mmol/L (21-32) Anion Gap 4 (6-14) 7 (6-14) Blood Urea Nitrogen 3 mg/dL (7-20) 1 mg/dL (7-20) Creatinine 0.7 mg/dL (0.6-1.0) 0.7 mg/dL (0.6-1.0) Estimated GFR (Cockcroft-Gault) 98.4 98.4 BUN/Creatinine Ratio 4 (6-20) Glucose Level 110 mg/dL (70-99) 113 mg/dL (70-99) Calcium Level 7.5 mg/dL (8.5-10.1) 7.6 mg/dL (8.5-10.1) Total Bilirubin 0.8 mg/dL (0.2-1.0) Aspartate Amino Transf (AST/SGOT) 18 U/L (15-37) Alanine Aminotransferase (ALT/SGPT) 14 U/L (14-59) Alkaline Phosphatase 40 U/L (46-116) Total Protein 4.4 g/dL (6.4-8.2) Albumin 2.2 g/dL (3.4-5.0) Albumin/Globulin Ratio 1.0 (1.0-1.7) Laboratory Tests Test 08/05/18 15:45 08/06/18 05:30 White Blood Count 5.6 x10^3/uL (4.0-11.0) 5.5 x10^3/uL (4.0-11.0) Red Blood Count 3.23 x10^6/uL (3.50-5.40) 3.13 x10^6/uL (3.50-5.40) Hemoglobin 9.5 g/dL (12.0-15.5) 9.0 g/dL (12.0-15.5) Hematocrit 27.1 % (36.0-47.0) 26.3 % (36.0-47.0) Mean Corpuscular Volume 84 fL (79-100) 84 fL (79-100) Mean Corpuscular Hemoglobin 30 pg (25-35) 29 pg (25-35) Mean Corpuscular Hemoglobin Concent 35 g/dL (31-37) 34 g/dL (31-37) Red Cell Distribution Width 17.8 % (11.5-14.5) 18.2 % (11.5-14.5) Platelet Count 129 x10^3/uL (140-400) 124 x10^3/uL (140-400) Neutrophils (%) (Auto) 71 % (31-73) Lymphocytes (%) (Auto) 20 % (24-48) Monocytes (%) (Auto) 6 % (0-9) Eosinophils (%) (Auto) 3 % (0-3) Basophils (%) (Auto) 0 % (0-3) Neutrophils # (Auto) 3.9 x10^3uL (1.8-7.7) Lymphocytes # (Auto) 1.1 x10^3/uL (1.0-4.8) Monocytes # (Auto) 0.3 x10^3/uL (0.0-1.1) Eosinophils # (Auto) 0.1 x10^3/uL (0.0-0.7) Basophils # (Auto) 0.0 x10^3/uL (0.0-0.2) Sodium Level 142 mmol/L (136-145) Potassium Level 3.9 mmol/L (3.5-5.1) Chloride Level 111 mmol/L (98-107) Carbon Dioxide Level 24 mmol/L (21-32) Anion Gap 7 (6-14) Blood Urea Nitrogen 1 mg/dL (7-20) Creatinine 0.7 mg/dL (0.6-1.0) Estimated GFR (Cockcroft-Gault) 98.4 Glucose Level 113 mg/dL (70-99) Calcium Level 7.6 mg/dL (8.5-10.1) Medications Current Medications Iohexol (Omnipaque 300 Mg/ml) 75 ml 1X ONCE IV Last administered on at 09:08; Start 08/02/18 at 09:30; Stop 08/02/18 at 09:31; Status DC Calcium Gluconate (Calcium Gluconate) 1,000 mg 1X ONCE IVP ; Start 08/02/18 at 09:00; Stop 08/02/18 at 09:01; Status UNV Dextrose (Dextrose 50%-Water Syringe) 25 gm 1X ONCE IV ; Start 08/02/18 at 09: 00; Stop 08/02/18 at 09:01; Status UNV Insulin Human Regular (HumuLIN R VIAL) 10 unit 1X ONCE IV ; Start 08/02/18 at 09:00; Stop 08/02/18 at 09:01; Status UNV Info (CONTRAST GIVEN -- Rx MONITORING) 1 each PRN DAILY PRN MC SEE COMMENTS; Start 08/02/18 at 09:15; Stop 08/03/18 at 15:39; Status DC Ondansetron HCl (Zofran) 4 mg PRN Q8HRS PRN IV NAUSEA/VOMITING; Start at 10:00; Stop 08/03/18 at 09:59; Status DC Sodium Chloride 1,000 ml @ 45 mls/hr [id number] IV Last administered on at 10:36; Start 08/02/18 at 10:00; Stop 08/02/18 at 12:37; Status DC Polyethylene Glycol (miraLAX Powder BULK BOTTLE) 238 gm 1X ONCE PO ; Start at 12:30; Stop 08/02/18 at 12:31; Status Cancel Pantoprazole Sodium (PROTONIX VIAL for IV PUSH) 40 mg DAILYAC IVP Last administered on 08/06/18at 08:11; Start 08/02/18 at 12:30 Polyethylene Glycol (miraLAX PACKET) 17 gm 1X ONCE PO ; Start 08/02/18 at 12: 30; Stop 08/02/18 at 12:47; Status DC Sodium Chloride 1,000 ml @ 125 mls/hr Q8H IV Last administered on 08/03/18at 03:01; Start 08/02/18 at 14:00; Stop 08/03/18 at 10:25; Status DC Sodium Chloride 250 ml @ 500 mls/hr 1X ONCE IV Last administered on at 13:00; Start 08/02/18 at 13:00; Stop 08/02/18 at 13:29; Status DC Heparin Sodium (Porcine) (Hep Lock Adult) 100 unit 1X ONCE IV ; Start at 13:30; Stop 08/02/18 at 18:47; Status DC Heparin Sodium (Porcine) (HEPARIN for NUC MED) 500 unit STK-MED ONCE IV ; Start 08/02/18 at 13:05; Stop 08/02/18 at 13:17; Status DC Polyethylene Glycol (miraLAX Powder BULK BOTTLE) 238 gm 1X ONCE PO Last administered on 08/02/18at 19:18; Start 08/02/18 at 19:00; Stop 08/02/18 at 19 :01; Status DC Haloperidol Lactate (Haldol Inj) 1 mg PRN Q6HRS PRN IVP AGITATION Last administered on 08/04/18at 13:17; Start 08/02/18 at 15:15 Zolpidem Tartrate (Ambien) 5 mg PRN QHS PRN PO INSOMNIA Last administered on at 20:05; Start 08/02/18 at 21:30 Sodium Monofluorophosphate (Fleet Adult) 133 ml 1X ONCE VA Last administered on 08/03/18at 08:00; Start 08/03/18 at 08:00; Stop 08/03/18 at 08:01; Status DC Sodium Monofluorophosphate (Fleet Adult) 133 ml 1X ONCE VA Last administered on 08/03/18at 09:00; Start 08/03/18 at 08:00; Stop 08/03/18 at 08:01; Status DC Potassium Chloride/Dextrose/ Sod Cl 1,000 ml @ 150 mls/hr Q6H40M IV Last administered on 08/04/18at 06:03; Start 08/03/18 at 11:00; Stop 08/04/18 at 11 :03; Status DC Propofol 20 ml @ As Directed STK-MED ONCE IV ; Start 08/03/18 at 10:56; Stop 08/03/18 at 10:57; Status DC Lidocaine HCl (Xylocaine-Mpf 1% 2ml Vial) 2 ml STK-MED ONCE .ROUTE ; Start at 10:56; Stop 08/03/18 at 10:57; Status DC Ephedrine Sulfate (ePHEDrine PF IN SALINE SYRINGE) 50 mg STK-MED ONCE IV ; Start 08/03/18 at 11:37; Stop 08/03/18 at 11:38; Status DC Iohexol (Omnipaque 300 Mg/ml) 90 ml 1X ONCE IV Last administered on at 12:41; Start 08/03/18 at 13:00; Stop 08/03/18 at 13:01; Status DC Info (CONTRAST GIVEN -- Rx MONITORING) 1 each PRN DAILY PRN MC SEE COMMENTS; Start 08/03/18 at 12:30; Stop 08/05/18 at 12:29; Status DC Iohexol (Omnipaque 300 Mg/ml) 100 ml STK-MED ONCE .ROUTE ; Start 08/03/18 at 12 :28; Stop 08/03/18 at 12:29; Status DC Ondansetron HCl (Zofran) 4 mg STK-MED ONCE .ROUTE ; Start 08/03/18 at 14:10; Stop 08/03/18 at 14:11; Status DC Famotidine (Pepcid Vial) 20 mg STK-MED ONCE .ROUTE ; Start 08/03/18 at 14:10; Stop 08/03/18 at 14:11; Status DC Ketamine HCl (Ketamine) 50 mg STK-MED ONCE .ROUTE ; Start 08/03/18 at 14:10; Stop 08/03/18 at 14:11; Status DC Succinylcholine Chloride (Anectine) 200 mg STK-MED ONCE .ROUTE ; Start at 14:10; Stop 08/03/18 at 14:11; Status DC Etomidate (Amidate) 20 mg STK-MED ONCE IV ; Start 08/03/18 at 14:11; Stop at 14:12; Status DC Fentanyl Citrate (Fentanyl 2ml Vial) 100 mcg STK-MED ONCE .ROUTE ; Start at 14:11; Stop 08/03/18 at 14:12; Status DC Lidocaine/Sodium Bicarbonate (Buffered Lidocaine 1%) 3 ml STK-MED ONCE .ROUTE ; Start 08/03/18 at 14:20; Stop 08/03/18 at 14:21; Status DC Iohexol (Omnipaque 240 Mg/ml) 50 ml STK-MED ONCE .ROUTE ; Start 08/03/18 at 14: 20; Stop 08/03/18 at 14:21; Status DC Iohexol (Omnipaque 300 Mg/ml) 100 ml STK-MED ONCE .ROUTE ; Start 08/03/18 at 14 :20; Stop 08/03/18 at 14:21; Status DC Heparin Sodium/ Sodium Chloride 1,000 ml @ As Directed STK-MED ONCE .ROUTE ; Start 08/03/18 at 14:20; Stop 08/03/18 at 14:21; Status DC Iohexol (Omnipaque 300 Mg/ml) 100 ml 1X ONCE IART Last administered on at 16:00; Start 08/03/18 at 16:00; Stop 08/03/18 at 16:01; Status DC Lidocaine/Sodium Bicarbonate (Buffered Lidocaine 1%) 4 ml 1X ONCE IJ Last administered on 08/03/18at 16:12; Start 08/03/18 at 16:15; Stop 08/03/18 at 16 :20; Status DC Sodium Chloride 1,000 ml @ 1,000 mls/hr 1X ONCE IV Last administered on 08/03at 17:45; Start 08/03/18 at 17:45; Stop 08/03/18 at 18:44; Status DC Olanzapine (ZyPREXA ZYDIS) 5 mg PRN BID PRN PO ANXIETY / AGITATION Last administered on 08/06/18at 11:36; Start 08/04/18 at 10:45 Potassium Chloride 40 meq/ Dextrose/Sodium Chloride 1,020 ml @ 150 mls/hr [id number] IV Last administered on 08/06/18at 04:16; Start 08/04/18 at 11:15; Stop 08/06/18 at 09:47; Status DC Polyethylene Glycol (miraLAX PACKET) 17 gm DAILY PO Last administered on at 08:12; Start 08/04/18 at 14:45 Amino Acids/ Glycerin/ Electrolytes 1,000 ml @ 80 mls/hr [id number] IV Last administered on 08/06/18at 11:03; Start 08/06/18 at 10:00 Ephedrine Sulfate (ePHEDrine PF IN SALINE SYRINGE) 50 mg STK-MED ONCE IV ; Start 08/05/18 at 12:00; Stop 08/06/18 at 12:25; Status DC Active Scripts Active Reported Namenda (Memantine Hcl) 10 Mg Tablet 1 Tab PO BID Mirtazapine 15 Mg Tablet 1 Tab PO QHS Senna Plus Tablet (Sennosides/Docusate Sodium) 1 Each Tablet 2 Each PO HS Aspirin Ec (Aspirin) 81 Mg Tablet.dr 1 Tab PO DAILY Cymbalta (Duloxetine Hcl) 30 Mg Capsule. 30 Mg PO BID Mirtazapine 15 Mg Tablet 1 Tab PO QHS Gabapentin 100 Mg Capsule 1 Cap PO HS Vitals/I & O Vital Sign - Last 24 Hours 08/05/18 08/05/18 08/05/18 08/05/18 14:00 15:00 16:00 16:00 Temp 98.6 98.6 Pulse 90 72 62 Resp 24 22 17 B/P (MAP) 145/89 (107) 143/100 (114) 153/86 (108) Pulse Ox 98 O2 Delivery Room Air Room Air Room Air Room Air 08/05/18 08/05/18 08/05/18 08/05/18 17:00 18:00 19:00 19:43 Temp 98.5 98.5 Pulse 63 65 64 Resp 16 16 16 B/P (MAP) 111/82 (92) 114/78 (90) 129/76 (93) Pulse Ox 99 99 O2 Delivery Room Air Room Air Room Air Room Air 08/05/18 08/05/18 08/05/18 08/05/18 20:00 21:00 22:00 23:00 Pulse 78 90 80 72 Resp 20 19 22 20 B/P (MAP) 119/76 (90) 123/76 (92) 114/78 (90) 129/87 (101) Pulse Ox 98 O2 Delivery Room Air Room Air Room Air Room Air 08/05/18 08/06/18 08/06/18 08/06/18 23:23 01:30 02:30 03:30 Pulse 66 62 68 Resp 17 15 18 B/P (MAP) 135/83 (100) 145/86 (105) 136/88 (104) O2 Delivery Room Air Room Air Room Air Room Air 08/06/18 08/06/18 08/06/18 08/06/18 04:01 05:30 05:58 07:00 Temp 98.9 97.9 98.9 97.9 Pulse 67 70 58 Resp 16 18 18 B/P (MAP) 132/87 (102) 116/78 (91) 132/74 (93) Pulse Ox 98 O2 Delivery Room Air Room Air Room Air Room Air 08/06/18 08/06/18 08/06/18 08/06/18 08:00 08:00 09:00 12:36 Pulse 67 76 Resp 17 21 B/P (MAP) 131/84 (100) 152/99 (116) O2 Delivery Room Air Room Air Room Air Room Air Intake and Output 08/05/18 08/05/18 08/06/18 15:00 23:00 07:00 Intake Total 150 ml 1902 ml 1142 ml Output Total 700 ml 1700 ml 1600 ml Balance -550 ml 202 ml -458 ml Problem List Problems Medical Problems: (1) GI bleed Status: Acute Assessment Sp diverticualr bleed, Hg stabilizing, no further bleeding, advance diet as tolerated SERA AZAR MD Aug 06, 2018 13:27
[2018-08-06 15:18] LABS: HEMOGLOBIN 8.7 g/dL (12.0-15.5); RED BLOOD COUNT 2.95 x10^6/uL (3.50-5.40); RED CELL DISTRIBUTION WIDTH 18.3 % (11.5-14.5); WHITE BLOOD COUNT 6.7 x10^3/uL (4.0-11.0)
[2018-08-06] MEDS ORDERED: HYDROcodone/APAP 7.5/325MG 1 TAB TABLET PO PRN (18:00)
[2018-08-06] MEDS ORDERED: DULoxetine HCL 30 MG CAPSULE.DR PO SCH ×2 (19:28→21:00)
[2018-08-06] MEDS ORDERED: MIRTAZAPINE PO SCH (21:00)
[2018-08-06] MEDS ORDERED: MIRTAZAPINE 15 MG TABLET PO SCH (21:00)
[2018-08-06] MEDS ORDERED: GABAPENTIN 100 MG CAPSULE. PO SCH (21:00)
[2018-08-06] MEDS ORDERED: MEMANTINE 10 MG TABLET. PO SCH (21:00)
[2018-08-06] MEDS: MIRTAZAPINE 15 MG TABLET PO SCH (21:11)
[2018-08-06] MEDS: MEMANTINE 10 MG TABLET. PO SCH (21:17)
[2018-08-06] MEDS: GABAPENTIN 100 MG CAPSULE. PO SCH (21:19)
[2018-08-06] MEDS: DULoxetine HCL 30 MG CAPSULE.DR PO SCH (21:21)
[2018-08-07 03:00] VITALS: BP 125/88
[2018-08-07 05:45] LABS: BASO % 1 % (0-3); EOS # 0.2 x10^3/uL (0.0-0.7); EOS % 3 % (0-3); HEMATOCRIT 26.8 % (36.0-47.0); LYMPH # 1.2 x10^3/uL (1.0-4.8); LYMPH % 20 % (24-48); MEAN CORPUSCULAR HEMOGLOBIN 29 pg (25-35); MEAN CORPUSCULAR HGB CONC 34 g/dL (31-37); MEAN CORPUSCULAR VOLUME 85 fL (79-100); MONO # 0.4 x10^3/uL (0.0-1.1); MONO % 7 % (0-9); NEUT # 4.3 x10^3uL (1.8-7.7); NEUT % 71 % (31-73); PLATELET COUNT 137 x10^3/uL (140-400); RED BLOOD COUNT 3.16 x10^6/uL (3.50-5.40); RED CELL DISTRIBUTION WIDTH 18.6 % (11.5-14.5)
[2018-08-07 05:53] LABS: CALCIUM 8.1 mg/dL (8.5-10.1); CREATININE 0.8 mg/dL (0.6-1.0); GFR 84.4
[2018-08-07 07:00] VITALS: BP 140/84
[2018-08-07] MEDS ORDERED: PANTOPRAZOLE 40 MG TABLET.DR. PO ONE (09:30)
--- NOTE | 2018-08-07 09:37 | PDOC ---
PROGRESS NOTES Subjective Subjective pt moved out of icu Objective Objective Vital Signs Date Time Temp Pulse Resp B/P (MAP) Pulse Ox O2 Delivery O2 Flow Rate FiO2 08/07/18 03:00 98.5 69 18 125/88 (100) 99 Room Air 98.5 Intake and Output 08/07/18 07:00 Intake Total 1125 ml Output Total 4350 ml Balance -3225 ml Intake Oral 220 ml IV Total 905 ml Output Urine Total 4350 ml # Bowel Movements 1 Physical Exam Abdomen: Soft, No tenderness Heart: Regular rate, Normal S1, Normal S2 Extremities: No edema General: Cooperative, No acute distress HEENT: Atraumatic, PERRLA, EOMI Lungs: Clear to auscultation, Normal air movement Neck: Supple Neuro: Normal speech, Other (confusion and agiataion) Skin: No significant lesion COMMENT krysten present Diagnosis Problem List Problems Medical Problems: (1) GI bleed Status: Acute Assessment Assessment Problems Medical Problems: (1) GI bleed Status: Acute FINAL IMPRESSION: 1. Acute Lower gastrointestinal bleed. 2. Dementia. 3. Anemia due to GI bleed. 4. Neuropathy. 5. General debility. 6. History of previous surgeries including knee replacements. 7. The patient is on aspirin. 8. Dementia with agitation and confusion, encephalopathy 9. Hypokalemia 10. Hypernatremia PLAN: transferred to medical floor yesterday started on clear liquid diet , advance diet today hb 9.4 today,bmp stable colonoscopy results noted surgical consult appreciated no more active bleed d/c krysten d/c ProcalAmine. pt/ot/ spoke with family po Protonix. plans to d/c home tomorrow Plan Plan of Care Problems Medical Problems: (1) GI bleed Status: Acute Comment Review of Relevant I have reviewed the following items bindu (where applicable) has been applied. Labs Laboratory Tests Test 08/06/18 15:13 08/07/18 05:30 White Blood Count 6.7 x10^3/uL (4.0-11.0) 6.0 x10^3/uL (4.0-11.0) Red Blood Count 2.95 x10^6/uL (3.50-5.40) 3.16 x10^6/uL (3.50-5.40) Hemoglobin 8.7 g/dL (12.0-15.5) 9.0 g/dL (12.0-15.5) Hematocrit 25.0 % (36.0-47.0) 26.8 % (36.0-47.0) Mean Corpuscular Volume 85 fL (79-100) 85 fL (79-100) Mean Corpuscular Hemoglobin 30 pg (25-35) 29 pg (25-35) Mean Corpuscular Hemoglobin Concent 35 g/dL (31-37) 34 g/dL (31-37) Red Cell Distribution Width 18.3 % (11.5-14.5) 18.6 % (11.5-14.5) Platelet Count 130 x10^3/uL (140-400) 137 x10^3/uL (140-400) Neutrophils (%) (Auto) 71 % (31-73) Lymphocytes (%) (Auto) 20 % (24-48) Monocytes (%) (Auto) 7 % (0-9) Eosinophils (%) (Auto) 3 % (0-3) Basophils (%) (Auto) 1 % (0-3) Neutrophils # (Auto) 4.3 x10^3uL (1.8-7.7) Lymphocytes # (Auto) 1.2 x10^3/uL (1.0-4.8) Monocytes # (Auto) 0.4 x10^3/uL (0.0-1.1) Eosinophils # (Auto) 0.2 x10^3/uL (0.0-0.7) Basophils # (Auto) 0.0 x10^3/uL (0.0-0.2) Sodium Level 144 mmol/L (136-145) Potassium Level 4.0 mmol/L (3.5-5.1) Chloride Level 109 mmol/L (98-107) Carbon Dioxide Level 28 mmol/L (21-32) Anion Gap 7 (6-14) Blood Urea Nitrogen 5 mg/dL (7-20) Creatinine 0.8 mg/dL (0.6-1.0) Estimated GFR (Cockcroft-Gault) 84.4 Glucose Level 105 mg/dL (70-99) Calcium Level 8.1 mg/dL (8.5-10.1) Medications Current Medications Acetaminophen/ Hydrocodone Bitart (Lortab 7.5/325) 1 tab PRN Q6HRS PRN PO PAIN ; Start 08/06/18 at 18:00 Amino Acids/ Glycerin/ Electrolytes 1,000 ml @ 80 mls/hr [id number] IV Last administered on 08/06/18at 23:57; Start 08/06/18 at 10:00 Duloxetine HCl (Cymbalta) 30 mg BID PO ; Start 08/06/18 at 19:28; Stop at 19:29; Status DC Duloxetine HCl (Cymbalta) 30 mg BID PO Last administered on 08/06/18at 21:21; Start 08/06/18 at 19:29 Duloxetine HCl (Cymbalta) 30 mg BID PO ; Start 08/06/18 at 21:00; Stop at 21:00; Status DC Gabapentin (Neurontin) 100 mg HS PO Last administered on 08/06/18at 21:19; Start 08/06/18 at 19:30 Gabapentin (Neurontin) 100 mg HS PO ; Start 08/06/18 at 21:00; Stop 08/06/18 at 21:00; Status DC Memantine (Namenda) 10 mg BID PO Last administered on 08/06/18at 21:17; Start 08/06/18 at 19:30 Memantine (Namenda) 10 mg BID PO ; Start 08/06/18 at 21:00; Stop 08/06/18 at 21:00; Status DC Mirtazapine (Remeron) 15 mg QHS PO Last administered on 08/06/18at 21:11; Start 08/06/18 at 19:31 Mirtazapine (Remeron) 15 mg QHS PO ; Start 08/06/18 at 21:00; Stop 08/06/18 at 21:00; Status DC Non-Formulary Medication (Mirtazapine ) 1 tab QHS PO ; Start 08/06/18 at 21:00 ; Status UNV Vitals/I & O Vital Sign - Last 24 Hours 08/06/18 08/06/18 08/06/18 08/06/18 11:00 12:36 15:00 19:00 Temp 98.2 98.8 98.7 98.2 98.8 98.7 Pulse 78 91 83 Resp 19 20 17 B/P (MAP) 155/88 (110) 141/101 (114) 108/69 (82) Pulse Ox 99 90 100 O2 Delivery Room Air Room Air Room Air Room Air 08/06/18 08/06/18 08/07/18 20:00 23:00 03:00 Temp 98.1 98.5 98.1 98.5 Pulse 66 69 Resp 17 18 B/P (MAP) 147/88 (107) 125/88 (100) Pulse Ox 100 99 O2 Delivery Room Air Room Air Room Air Intake and Output 08/06/18 08/06/18 08/07/18 15:00 23:00 07:00 Intake Total 905 ml 100 ml 120 ml Output Total 1200 ml 1300 ml 1850 ml Balance -295 ml -1200 ml -1730 ml Nutrition Consultation Dietary Evaluation: Recommendations by RD: Protein supplementation, PPN/TPN Comments: REC continue w/GI soft diet REC Ensure (chocolate) TID - will add to diet order Continue w/PPN for supplemental nutrition needs until PO intake >75% most meals Expected Outcomes/Goals: diet advancement - met, new goal established New goal 08/06: PO intake >75% est needs Interpretation of weight loss: >7.5% in 3 months Malnutrition Findings: Food and Nutrition Intake (Mod: <75% est energy req 7days Weight Status: Appropriate MARIA DOLORES HILARIO MD Aug 07, 2018 09:37
[2018-08-07] MEDS: DULoxetine HCL 30 MG CAPSULE.DR PO SCH ×3 (09:56→21:04)
[2018-08-07] MEDS: MEMANTINE 10 MG TABLET. PO SCH ×3 (09:56→21:04)
[2018-08-07] MEDS: POLYETHYLENE GLYCOL 3350 17 GM PACKET. PO SCH (09:57)
--- NOTE | 2018-08-07 10:20 | PDOC ---
Subjective: Subjective: Daughter feeding her sweet potatoes, tells me no stools today. Objective: Objective: On PPI and Miralax. Reviewed other notes - possible DC tomorrow. Vital Signs: Vital Signs Date Time Temp Pulse Resp B/P (MAP) Pulse Ox O2 Delivery O2 Flow Rate FiO2 08/07/18 03:00 98.5 69 18 125/88 (100) 99 Room Air 98.5 Labs: Laboratory Tests Test 08/06/18 15:13 08/07/18 05:30 White Blood Count 6.7 x10^3/uL 6.0 x10^3/uL Red Blood Count 2.95 x10^6/uL 3.16 x10^6/uL Hemoglobin 8.7 g/dL 9.0 g/dL Hematocrit 25.0 % 26.8 % Mean Corpuscular Volume 85 fL 85 fL Mean Corpuscular Hemoglobin 30 pg 29 pg Mean Corpuscular Hemoglobin Concent 35 g/dL 34 g/dL Red Cell Distribution Width 18.3 % 18.6 % Platelet Count 130 x10^3/uL 137 x10^3/uL Neutrophils (%) (Auto) 71 % Lymphocytes (%) (Auto) 20 % Monocytes (%) (Auto) 7 % Eosinophils (%) (Auto) 3 % Basophils (%) (Auto) 1 % Neutrophils # (Auto) 4.3 x10^3uL Lymphocytes # (Auto) 1.2 x10^3/uL Monocytes # (Auto) 0.4 x10^3/uL Eosinophils # (Auto) 0.2 x10^3/uL Basophils # (Auto) 0.0 x10^3/uL Sodium Level 144 mmol/L Potassium Level 4.0 mmol/L Chloride Level 109 mmol/L Carbon Dioxide Level 28 mmol/L Anion Gap 7 Blood Urea Nitrogen 5 mg/dL Creatinine 0.8 mg/dL Estimated GFR (Cockcroft-Gault) 84.4 Glucose Level 105 mg/dL Calcium Level 8.1 mg/dL Imaging: Colonoscopy 08/03 internal hemorrhoids diverticulosis sigmoid colon CTA IMPRESSION: 1. Acute bleed in the proximal descending colon. 2. Nodular wall thickening of the rectum can be seen in stercoral colitis as there was fecal impaction seen on previous exam. Angio Impression: 1. No active gastrointestinal hemorrhage was identified 2. Iatrogenic short segment LINDA dissection. PE: GEN: NAD LUNGS: room air HEART: RRR ABD: soft, non-tender NEURO/PSYCH: pleasantly confused A/P: Suspected diverticular bleed Dementia -- No further bleeding w/ stable Hgb. DC per primary. MEL ORDONEZ Aug 07, 2018 10:20
[2018-08-07 11:00] VITALS: BP 117/76
[2018-08-07 15:00] VITALS: BP 129/67
[2018-08-07 19:00] VITALS: BP 131/82
[2018-08-07] MEDS: GABAPENTIN 100 MG CAPSULE. PO SCH ×2 (21:00→21:04)
[2018-08-07] MEDS: MIRTAZAPINE 15 MG TABLET PO SCH (21:04)
[2018-08-07 22:43] VITALS: BP 133/80
[2018-08-08 02:58] VITALS: BP 147/92
[2018-08-08 07:00] VITALS: BP 138/75
[2018-08-08] MEDS: PANTOPRAZOLE 40 MG TABLET.DR. PO SCH ×2 (07:30→08:11)
[2018-08-08] MEDS: DULoxetine HCL 30 MG CAPSULE.DR PO SCH ×2 (08:10→09:00)
[2018-08-08] MEDS: MEMANTINE 10 MG TABLET. PO SCH ×2 (08:11→09:00)
--- NOTE | 2018-08-08 08:53 | PDOC ---
Subjective: Subjective: Family in room says she's very sleepy and refusing meds and food. No stools since transferred from ICU. Objective: Vital Signs: Vital Signs Date Time Temp Pulse Resp B/P (MAP) Pulse Ox O2 Delivery O2 Flow Rate FiO2 08/08/18 07:00 98.2 66 18 138/75 (96) 96 Room Air 98.2 PE: GEN: NAD HEENT: eyes closed LUNGS: room air NEURO/PSYCH: asleep in recliner A/P: Suspected diverticular bleed - no further bleeding, Hgb stable (checked yesterday) Dementia -- Now refusing meds and food, note orders for THROUGH OPERATOR eval. MEL ORDONEZ Aug 08, 2018 08:53
[2018-08-08] MEDS: POLYETHYLENE GLYCOL 3350 17 GM PACKET. PO SCH (09:00)
--- NOTE | 2018-08-08 09:34 | PDOC ---
PROGRESS NOTES Subjective Subjective not eating much today Objective Objective Vital Signs Date Time Temp Pulse Resp B/P (MAP) Pulse Ox O2 Delivery O2 Flow Rate FiO2 08/08/18 07:00 98.2 66 18 138/75 (96) 96 Room Air 98.2 Intake and Output 08/08/18 07:00 Intake Total 30 ml Output Total 825 ml Balance -795 ml Intake Oral 30 ml Output Urine Total 825 ml # Voids 2 Physical Exam Abdomen: Soft, No tenderness Heart: Regular rate, Normal S1, Normal S2 Extremities: No edema General: Cooperative, No acute distress HEENT: Atraumatic, PERRLA, EOMI Lungs: Clear to auscultation, Normal air movement Neck: Supple Neuro: Normal speech, Other (confusion and agiataion) Skin: No significant lesion Diagnosis Problem List Problems Medical Problems: (1) GI bleed Status: Acute Assessment Assessment Problems Medical Problems: (1) GI bleed Status: Acute FINAL IMPRESSION: 1. Acute Lower gastrointestinal bleed. 2. Dementia. 3. Anemia due to GI bleed. 4. Neuropathy. 5. General debility. 6. History of previous surgeries including knee replacements. 7. The patient is on aspirin. 8. Dementia with agitation and confusion, encephalopathy 9. Hypokalemia 10. Hypernatremia PLAN: transferred to snu started on clear liquid diet , advance diet hb 9.4 ,bmp stable colonoscopy results noted surgical consult appreciated no more active bleed d/cd bashir d/c ProcalAmine. pt/ot/ spoke with family po Protonix. plans to d/c to SNU when bed available Plan Plan of Care Problems Medical Problems: (1) GI bleed Status: Acute Comment Review of Relevant I have reviewed the following items bindu (where applicable) has been applied. Medications Current Medications Pantoprazole Sodium (Protonix) 40 mg DAILYAC PO ; Start 08/08/18 at 07:30 Vitals/I & O Vital Sign - Last 24 Hours 08/07/18 08/07/18 08/07/18 08/07/18 11:00 15:00 19:00 20:00 Temp 97.6 97.6 Pulse 71 63 68 Resp 18 18 18 B/P (MAP) 117/76 (90) 129/67 (87) 131/82 (98) Pulse Ox 99 99 98 O2 Delivery Room Air Room Air Room Air Room Air 08/07/18 08/08/18 08/08/18 22:43 02:58 07:00 Temp 98.3 98.5 98.2 98.3 98.5 98.2 Pulse 64 73 66 Resp 18 18 18 B/P (MAP) 133/80 (97) 147/92 (110) 138/75 (96) Pulse Ox 100 95 96 O2 Delivery Room Air Room Air Room Air Intake and Output 08/07/18 08/07/18 08/08/18 15:00 23:00 07:00 Intake Total 30 ml Output Total 825 ml Balance -825 ml 30 ml Nutrition Consultation Dietary Evaluation: Recommendations by RD: Protein supplementation, PPN/TPN Comments: REC continue w/GI soft diet REC Ensure (chocolate) TID - will add to diet order Continue w/PPN for supplemental nutrition needs until PO intake >75% most meals Expected Outcomes/Goals: diet advancement - met, new goal established New goal 08/06: PO intake >75% est needs Interpretation of weight loss: >7.5% in 3 months Malnutrition Findings: Food and Nutrition Intake (Mod: <75% est energy req 7days Weight Status: Appropriate MARIA DOLORES HILARIO MD Aug 08, 2018 09:34
[2018-08-08] MEDS ORDERED: POLY17PO28 PO (09:37)
[2018-08-08] MEDS ORDERED: Pantoprazole PO (09:37)
--- NOTE | 2018-08-08 09:40 | DISCH ---
DISCHARGE DISCHARGE INFORMATION: DISCHARGE DATE: Aug 08, 2018 FINAL DIAGNOSIS Problems Medical Problems: (1) GI bleed Status: Acute CONDITION ON DISCHARGE: Stable LONG-TERM: SNF STAY <30 DAYS: Yes HOSPICE: HOSPICE: No HOSPICE EVAL & TREAT: No LTAC: ADMIT TO LTAC: No POST DISCHARGE ORDERS: ACTIVITY ORDERS: Resume previous activity WEIGHT BEARING STATUS: No restrictions DIET AFTER DISCHARGE: mechanical soft diet TREATMENT/EQUIPMENT ORDERS: ADAPTIVE EQUIPMENT NEEDED: Four wheeled walker Physical Therapy For: Evalulation/Treatment Occupational Therapy For: Evaluation/Treatment DISCHARGE MEDICATIONS: Home Meds Reported Medications Memantine Hcl (NAMENDA) 10 Mg Tablet, 1 TAB PO BID for memory, #180 TAB 1 Refill 08/02/18 Mirtazapine (MIRTAZAPINE) 15 Mg Tablet, 1 TAB PO QHS for mood, #30 TAB 3 Refills 08/02/18 Sennosides/Docusate Sodium (SENNA PLUS TABLET) 1 Each Tablet, 2 EACH PO HS for constipation, TAB 08/02/18 Aspirin (ASPIRIN EC) 81 Mg Tablet.dr, 1 TAB PO DAILY for circulation, #30 TAB 3 Refills 08/02/18 Duloxetine Hcl (CYMBALTA) 30 Mg Capsule.dr, 30 MG PO BID for pain, CAP 09/26/14 Mirtazapine (MIRTAZAPINE) 15 Mg Tablet, 1 TAB PO QHS, #30 TAB 3 Refills 09/08/14 Gabapentin (GABAPENTIN) 100 Mg Capsule, 1 CAP PO HS, #90 CAP 2 Refills 09/08/14 MARIA DOLORES HILARIO MD Aug 08, 2018 09:40
[2018-08-08 11:00] VITALS: BP 114/79
[2018-08-08 15:00] VITALS: BP 123/83
--- NOTE | 2018-08-13 14:42 | PDOC ---
Provider Note Provider Note Discharge summary dictated. MARIA DOLORES HILARIO MD Aug 13, 2018 14:42
--- NOTE | 2018-08-13 15:09 | DS ---
DATE OF DISCHARGE: 08/08/2018 REASON FOR ADMISSION TO THE HOSPITAL: Lower GI bleed. CONSULTATIONS: 1. Dr. Stoddard. 2. Dr. Jackson, General Surgery. PROCEDURES DONE: 1. Colonoscopy. 2. CT of the abdomen and pelvis. 3. Gastrointestinal bleeding scan. 4. Visceral angiography x 2. HOSPITAL COURSE: The patient is a 77-year-old female with history of dementia, had severe lower GI bleed, was admitted to the hospital ICU and hemoglobin dropped down to less than 7. She was transfused 5 units of packed RBC during the hospital stay. The patient was seen by GI, had a CT scan of the abdomen and pelvis at the time of admission, large amount of stool, colon diverticulosis. The patient had a colonoscopy on 08/03/2018 shows diverticulosis of the sigmoid colon, internal hemorrhoids and the patient since was continued to lose blood. The patient had a GI bleeding scan, no evidence of active GI bleed. The patient had a visceral angiography on 08/03/2018, which shows no active GI bleed and had an angiogram of the abdomen, which shows acute bleed in the proximal descending colon. The patient was monitored. Her hemoglobin remained stable, no further drop in hemoglobin. No active bleeding and it was felt that her bleeding would stop by itself. The patient had some episodes of confusion with agitation while she was in the hospital and the patient was transferred to alf for further therapy and rehabilitation, monitor hemoglobin. FINAL DIAGNOSES: 1. Lower gastrointestinal bleed, probably secondary to diverticular bleed. Colonoscopy shows diverticulosis, internal hemorrhoids. 2. The patient required 5 units of packed RBC and bleeding stopped by itself. 3. Dementia, Alzheimer's type. 4. Episodes of confusion with agitation while she is in the hospital. 5. General debility and decline. DISPOSITION: To Correction Unit. Recommend to hold aspirin and also started on Protonix. MARIA DOLORES HILARIO MD DR: DINO/michelle JOB#: [id number] / [id number] GLORIA Jackson
== END 2018-08-08 17:30 | DRG 377 ==
LOC: ER 07:59 → ED HOLD 08:50 → 5 NORTH 10:54 → 1 WEST ICU 13:30 → 5 NORTH 08-06 11:22
PROVIDERS: ADMIT Internal Medicine; ATTEND Internal Medicine
PROC: 30233R1 Transfusion of Nonautologous Platelets into Peripheral Vein, Percutaneous Approach (ICD-10-PCS; 2018-08-02)
PROC: 30233N1 Transfusion of Nonautologous Red Blood Cells into Peripheral Vein, Percutaneous Approach (ICD-10-PCS; 2018-08-02)
PROC: 0DJD8ZZ Inspection of Lower Intestinal Tract, Via Natural or Artificial Opening Endoscopic (ICD-10-PCS; principal; 2018-08-03 11:00)
PROC: 02HV33Z Insertion of Infusion Device into Superior Vena Cava, Percutaneous Approach (ICD-10-PCS; 2018-08-04)
DX: K57.51 Diverticulosis of both small and large intestine without perforation or abscess with bleeding (principal); G93.41 Metabolic encephalopathy; D62 Acute posthemorrhagic anemia; F02.81 Dementia in other diseases classified elsewhere, unspecified severity, with behavioral disturbance; E87.0 Hyperosmolality and hypernatremia; F32.9 Major depressive disorder, single episode, unspecified; Z96.653 Presence of artificial knee joint, bilateral; G62.9 Polyneuropathy, unspecified; G30.9 Alzheimer's disease, unspecified; M19.90 Unspecified osteoarthritis, unspecified site; I10 Essential (primary) hypertension; K21.9 Gastro-esophageal reflux disease without esophagitis; E87.6 Hypokalemia; K64.8 Other hemorrhoids; I95.9 Hypotension, unspecified; Z90.710 Acquired absence of both cervix and uterus; Z79.82 Long term (current) use of aspirin
CPT/HCPCS: 36246; 36415; 45378; 71045; 74174; 74177; 75726; 76937; 78278; 80048; 80053; 80076; 83605; 83690; 84443; 84484; 85014; 85018; 85025; 85027; 85610; 85730; 86850; 86900; 86901; 86920; 93005; 96360; 96374; A7015; A9560; C1713; C1760; C1769; C1887; C1892; C1894; C9113; G0269; J0330; J1630; J2405; J2704; J3010; J3480; J3490; J7030; J7042; J7050; P9016; P9035; Q9967; 97116; 97530; 97535; 99285-25